=== PATIENT | female | born 1985 | race Caucasian/White ===

== ENCOUNTER 2016-11-30 22:12 | Emergency (ER) | payer OTHER ==
[2016-11-30] MEDS ORDERED: DICYCLOMINE 10 MG CAPSULE PO STA (22:27)
[2016-11-30] MEDS ORDERED: DICYCLOMINE 10 MG CAPSULE PO ONE (22:28)
== END 2016-11-30 23:49 | disposition home or self-care (01) ==
DX: K52.9 Noninfective gastroenteritis and colitis, unspecified (principal); F41.9 Anxiety disorder, unspecified
CPT/HCPCS: 36415; 80053; 81003; 81025; 83690; 84443; 84484; 85025; 93005; 93010; 99283; 99284; A9270

== ENCOUNTER 2016-12-06 09:10 | Emergency (ER) | payer OTHER ==
[2016-12-06] MEDS ORDERED: LACTATED RINGERS 1,000 ML IV STA (11:59)
[2016-12-06] MEDS ORDERED: DICYCLOMINE 10 MG CAPSULE PO STA (12:00)
[2016-12-06] MEDS ORDERED: METOCLOPRAMIDE 10 MG/2 ML VIAL IVP STA (12:00)
[2016-12-06] MEDS ORDERED: METOCLOPRAMIDE 10 MG/2 ML VIAL IVP ONE (12:19)
[2016-12-06] MEDS ORDERED: DICYCLOMINE 10 MG CAPSULE PO ONE (12:19)
== END 2016-12-06 13:27 | disposition home or self-care (01) ==
DX: K58.0 Irritable bowel syndrome with diarrhea (principal)
CPT/HCPCS: 36415; 80053; 83690; 96374; 99283; 99284; A9270

== ENCOUNTER 2016-12-17 01:56 | Emergency (ER) | payer OTHER ==
[2016-12-17] MEDS ORDERED: KETOROLAC 60 MG/2 ML VIAL IM STA (02:39)
[2016-12-17] MEDS ORDERED: oxyCODONE/ACET 5/325 Prepack 4 PO STA (02:39)
[2016-12-17] MEDS ORDERED: oxyCODONE/ACET 5/325 Prepack 4 PO ONE (02:41)
[2016-12-17] MEDS ORDERED: KETOROLAC 60 MG/2 ML VIAL ONE (02:41)
== END 2016-12-17 03:10 | disposition home or self-care (01) ==
DX: R10.13 Epigastric pain (principal); R10.11 Right upper quadrant pain; R11.0 Nausea; F17.200 Nicotine dependence, unspecified, uncomplicated

== ENCOUNTER 2017-04-14 22:12 | Emergency (ER) | payer OTHER ==
[2017-04-14 22:32] VITALS: BP 106/69
[2017-04-14] MEDS ORDERED: MAG HYDROX/AL HYDROX/SIMETH 30 ML UDC PO STA (22:54)
[2017-04-14] MEDS ORDERED: LIDOCAINE VISCOUS 2% 15 ML UDC MM STA (22:54)
[2017-04-14] MEDS ORDERED: LIDOCAINE VISCOUS 2% 15 ML UDC MM ONE (22:56)
[2017-04-14] MEDS ORDERED: MAG HYDROX/AL HYDROX/SIMETH 30 ML UDC ONE (22:56)
[2017-04-14] MEDS ORDERED: SUCRALFATE 1 GM/10 ML UDC PO STA (23:11)
[2017-04-14] MEDS ORDERED: FAMOTIDINE 20 MG TABLET PO STA (23:11)
[2017-04-14] MEDS ORDERED: FAMOTIDINE 20 MG TABLET ONE (23:14)
[2017-04-14] MEDS ORDERED: SUCRALFATE 1 GM/10 ML UDC ONE (23:14)
--- NOTE | 2017-04-14 23:14 | ED Physician Documentation ---
PD HPI ABD PAIN - Stated complaint Stated Complaint: ABD PX - Chief complaint Chief Complaint: Abd Pain - History obtained from History obtained from: Patient - History of Present Illness Timing - onset: How many days ago (3) Timing - duration: Days (3) Timing - details: Gradual onset, Still present Quality: Sharp, Pain Location: Epigastric Worsened by: Palpation Associated symptoms: No: Fever, Nausea, Vomiting, Diarrhea, Loss of appetite, Weight loss Similar symptoms before: Diagnosis (irritable bowel) Recently seen: Other (The patient has had some problem with her teeth and has been taking some ibuprofen.) - Additional information Additional information: 31-year-old female with history of irritable bowel syndrome has developed some epigastric pain over the past 3 days. She had worsening of this pain this afternoon and is now come to the emergency department for evaluation. She has had improvement in her irritable bowel symptoms since moving to [facility]. She has been to see the dentist and she has been on some ibuprofen which she states she does take with food. Review of Systems Constitutional: denies: Fever, Chills, Myalgias Ears: denies: Ear pain Nose: denies: Congestion Throat: reports: Dental pain / toothache. denies: Sore throat Cardiac: denies: Chest pain / pressure Respiratory: denies: Dyspnea, Cough GI: reports: Abdominal Pain. 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 : None HEENT: None Psych: None Musculoskeletal: None Derm: None Other Past Medical History: "stomach problems" pt had upper gi scope - Past Surgical History Past Surgical History: Yes /SUPERVISOR OF GUIDANCE AND TESTING: section, 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 - Present Medications Home Medications: Ambulatory Orders Medication Instructions Recorded Confirmed Hydrocodone/Acetaminophen [[place] 1 tab PO Q6HR PRN 11/30/16 11/30/16 5-325 Tablet] Dicyclomine [Bentyl] 20 mg PO QID PRN #20 capsule 12/06/16 Metoclopramide [Reglan] 10 mg PO Q6H PRN #20 tablet 12/06/16 Oxycodone HCl/Acetaminophen 1 each PO Q6H PRN #15 tablet 12/17/16 [Percocet 5-325 mg Tablet] Pantoprazole [Protonix] 40 mg PO DAILY #30 tablet 12/17/16 Sucralfate [Carafate] 1 gm PO ACHS #300 ml 04/14/17 - Allergies Allergies/Adverse Reactions: Allergies Allergy/AdvReac Type Severity Reaction Status Date / Time No Known Drug Allergies Allergy Verified 04/14/17 22:32 - Social History Does the pt smoke?: Yes Smoking Status: Current every day smoker Does the pt drink ETOH?: No Does the pt have substance abuse?: No - Immunizations Immunizations are current?: Yes - POLST Patient has POLST: No PD ED PE NORMAL - Vitals Vital signs reviewed: Yes (normal ) - General General: Alert and oriented X 3, No acute distress, Well developed/nourished, Other (pleasant 31 y/o female surrounded by 3 very active young children. She does not appear to be in pain ) - HEENT HEENT: Atraumatic, PERRL, EOMI, Moist mucous membranes - Neck Neck: Supple, no meningeal sign, No bony TTP - Cardiac Cardiac: RRR, No murmur - Respiratory Respiratory: No respiratory distress, Clear bilaterally - Abdomen Abdomen: Soft, Other (mild epigastric pain to palpation ) - Back Back: No CVA TTP, No spinal TTP - Derm Derm: Normal color, Warm and dry, No rash - Extremities Extremities: No deformity, No edema - Neuro Neuro: No motor deficit, No sensory deficit - Psych Psych: Normal mood, Normal affect Results - Vitals Vitals: Vital Signs - 24 hr 04/14/17 22:29 Temperature 36.2 C L Heart Rate 53 L Respiratory 17 Rate Blood Pressure 106/69 O2 Saturation 97 Oxygen O2 Source Room air PD MEDICAL DECISION MAKING - ED course Complexity details: reviewed old records, re-evaluated patient, considered differential, d/w patient ED course: 31-year-old female with epigastric pain sharp in nature has been taking some ibuprofen recently for a dental problem and she has improvement in her pain with the use of viscous lidocaine Mylanta. She has had prior workups of abdominal pain a number of times including scans and has had a diagnosis previously of irritable bowel. I suspect today the her pain is related to a gastritis related to the anti-inflammatory and here in the emergency department we have treated her with Carafate and Pepcid AC and I recommended she use an acid reducing medication for the next 10 days as well as 1 week of Carafate. Departure - Departure Disposition: 01 Home, Self Care Clinical Impression: Gastritis Qualifiers: Gastritis type: other gastritis Chronicity: acute Gastritis bleeding: without bleeding Qualified Code(s): K29.00 - Acute gastritis without bleeding Instructions: ED PUD Vs Gastritis Follow-Up: JO[facility] [Provider Group] Prescriptions: Sucralfate [Carafate] 1 gm PO ACHS #300 ml Comments: Today it appears you have this pain related to taking ibuprofen. Use an alternative pain medicine such as Tylenol. Take the Pepcid daily for the next week and take the Carafate for the next week as well.
== END 2017-04-14 23:34 | disposition home or self-care (01) ==
LOC: ED 22:12
DX: K29.00 Acute gastritis without bleeding (principal); F17.200 Nicotine dependence, unspecified, uncomplicated
CPT/HCPCS: 99283; A9270

== ENCOUNTER 2017-04-22 14:38 | Emergency (ER) | payer OTHER ==
[2017-04-22] MEDS ORDERED: ONDANSETRON ODT 4 MG TABLET TL STA (15:01)
[2017-04-22] MEDS ORDERED: KETOROLAC 60 MG/2 ML VIAL IM STA (15:01)
--- NOTE | 2017-04-22 15:11 | ED Physician Documentation ---
PD HPI HEADACHE - Stated complaint Stated Complaint: HEADACHE/BACK PX - Chief complaint Chief Complaint: General - History obtained from History obtained from: Patient - History of Present Illness Timing - onset: How many weeks ago (1) Timing - details: Still present Location: Front Associated symptoms: Nausea. No: Fever, Stiff neck, Vomiting, Weakness, Numbness Worsened by: Light, Noise, Moving Contributing factors: No: Trauma Similar symptoms before: No diagnosis (She reports history of similar headaches in the past, but never lasting this long.) Recently seen: Emergency Dept (She was seen here in the emergency department 1 week ago with abdominal pain, which was diagnosed as most likely gastritis associated with ibuprofen use.) - Additional information Additional information: The patient is a 31-year-old female who presents with frontal headache that has been waxing and waning for the past week. She reports associated nausea, without vomiting or fever. She denies visual disturbance. She has been taking amoxicillin for the past week for a dental infection, and is concerned about possibility of a dental infection going to her head. She reports history of similar headaches in the past, but never lasting this long. She has been using Excedrin without relief. Review of her medical record reveals that she was seen here 1 week ago with upper abdominal pain. It was diagnosed as likely due to gastritis caused by ibuprofen. Review of Systems Constitutional: denies: Fever Eyes: denies: Photophobia, Irritation Ears: denies: Ear pain, Tinnitus/ringing Nose: denies: Congestion Throat: reports: Dental pain / toothache (Improving since being on antibiotics.) . denies: Sore throat Cardiac: denies: Chest pain / pressure Respiratory: denies: Dyspnea, Cough GI: reports: Nausea. denies: Abdominal Pain, Vomiting : denies: Dysuria Skin: denies: Rash Musculoskeletal: denies: Neck pain, Back pain Neurologic: reports: Headache. 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: None : None HEENT: None Psych: None Musculoskeletal: None Derm: None - Past Surgical History Past Surgical History: Yes /AIRLINE PILOT/FIRST OFFICER: section, 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 - Present Medications Home Medications: Ambulatory Orders Medication Instructions Recorded Confirmed Hydrocodone/Acetaminophen [[place] 1 tab PO Q6HR PRN 11/30/16 11/30/16 5-325 Tablet] Dicyclomine [Bentyl] 20 mg PO QID PRN #20 capsule 12/06/16 Metoclopramide [Reglan] 10 mg PO Q6H PRN #20 tablet 12/06/16 Oxycodone HCl/Acetaminophen 1 each PO Q6H PRN #15 tablet 12/17/16 [Percocet 5-325 mg Tablet] Pantoprazole [Protonix] 40 mg PO DAILY #30 tablet 12/17/16 Sucralfate [Carafate] 1 gm PO ACHS #300 ml 04/14/17 Promethazine [Phenergan] 25 - 50 mg PO Q6H PRN #10 tab 04/22/17 Tramadol HCl [Ultram] 50 mg PO BID PRN #12 tablet 04/22/17 - Allergies Allergies/Adverse Reactions: Allergies Allergy/AdvReac Type Severity Reaction Status Date / Time No Known Drug Allergies Allergy Verified 04/22/17 14:44 - Social History Does the pt smoke?: Yes Smoking Status: Current every day smoker Does the pt drink ETOH?: No Does the pt have substance abuse?: No - Immunizations Immunizations are current?: Yes - POLST Patient has POLST: No PD ED PE NORMAL - Vitals Vital signs reviewed: Yes (Normal) - General General: Alert and oriented X 3, Well developed/nourished - HEENT HEENT: Atraumatic, PERRL, EOMI, Ears normal, Pharynx benign, Other (Fundi with sharp disc margins, without papilledema.) - Neck Neck: Supple, no meningeal sign, No adenopathy, No JVD - Cardiac Cardiac: RRR, No murmur - Respiratory Respiratory: No respiratory distress, Clear bilaterally - Abdomen Abdomen: Soft, Non tender, No organomegaly - Back Back: No CVA TTP - Derm Derm: No rash - Extremities Extremities: No edema, No calf tenderness / cord - Neuro Neuro: Alert and oriented X 3, No motor deficit, No sensory deficit Results - Vitals Vitals: Vital Signs - 24 hr 04/22/17 04/22/17 14:41 15:52 Temperature 36.7 C Heart Rate 68 53 L Respiratory 17 18 Rate Blood Pressure 100/68 116/68 O2 Saturation 99 100 Oxygen O2 Source Room air PD MEDICAL DECISION MAKING - ED course Complexity details: reviewed old records, re-evaluated patient, considered differential, d/w patient ED course: The patient's presentation is consistent with nonspecific headache, with no clinical evidence to suggest meningitis, temporal arteritis, intracranial hemorrhage, or pseudotumor cerebri. Examination of her dentition reveals a temporary filling on a right lower molar, but without clinical evidence to suggest abscess. Treatment in the emergency department included administration of ondansetron 4 mg orally and ketorolac 60 mg IM. Because the patient would be driving home, no sedating medication was considered appropriate at this time. She is being discharged with prescriptions for Ultram, 12 tablets, and Phenergan. I discussed with her the diagnosis, symptomatic treatment and outpatient follow-up , as well as potentially worrisome signs or symptoms that should prompt reevaluation in the emergency department. Departure - Departure Disposition: 01 Home, Self Care Clinical Impression: Headache Qualifiers: Headache type: unspecified Headache chronicity pattern: unspecified pattern Intractability: not intractable Qualified Code(s): R51 - Headache Condition: Stable Instructions: ED Cephalgia Unspecified Follow-Up: JOSE [facility] [Provider Group] Prescriptions: Promethazine [Phenergan] 25 - 50 mg PO Q6H PRN #10 tab PRN Reason: Nausea / Vomiting Tramadol HCl [Ultram] 50 mg PO BID PRN #12 tablet PRN Reason: Headache Comments: Drink plenty of fluids. You can use Ultram as prescribed if needed for headache. Use Phenergan as prescribed if needed for nausea. Follow-up with your primary physician within 1 week. Call to schedule appointment. Follow-up with your dentist this week as scheduled. Return to the emergency department if you develop increasing headache, persistent vomiting, or otherwise worsening symptoms. Discharge Date/Time: 04/22/17 15:53
[2017-04-22] MEDS ORDERED: KETOROLAC 60 MG/2 ML VIAL ONE (15:15)
[2017-04-22] MEDS ORDERED: ONDANSETRON ODT 4 MG TABLET ONE (15:15)
[2017-04-22 15:53] VITALS: BP 116/68
== END 2017-04-22 15:53 | disposition home or self-care (01) ==
LOC: ED 14:38
DX: R51 Headache (principal); K08.89 Other specified disorders of teeth and supporting structures; F17.200 Nicotine dependence, unspecified, uncomplicated
CPT/HCPCS: 96372; 99283; 99284; Q0162

== ENCOUNTER 2017-10-23 17:19 | Emergency (ER) | payer OTHER ==
[2017-10-23 17:30] VITALS: BP 141/61
[2017-10-23] MEDS ORDERED: HYDROmorphone 1 MG/ML SYRINGE IM STA (18:12)
[2017-10-23] MEDS ORDERED: ONDANSETRON ODT 4 MG TABLET TL STA (18:12)
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
== END 2017-10-23 18:22 | disposition home or self-care (01) ==
LOC: ED 17:19
DX: T23.161A Burn of first degree of back of right hand, initial encounter (principal); X08.8XXA Exposure to other specified smoke, fire and flames, initial encounter; R03.0 Elevated blood-pressure reading, without diagnosis of hypertension; K21.9 Gastro-esophageal reflux disease without esophagitis
CPT/HCPCS: 96372; 99281; 99283; J1170; Q0162

== ENCOUNTER 2017-11-23 09:59 | Emergency (ER) | payer OTHER ==
[2017-11-23 10:13] VITALS: BP 113/58
[2017-11-23 11:19] LABS: BILIRUBIN,URINE NEGATIVE (NEGATIVE); GLUCOSE, URINE (UA) NEGATIVE (NEGATIVE); KETONES,URINE (UA) NEGATIVE (NEGATIVE); LEUKOCYTE ESTERASE, URINE NEGATIVE (NEGATIVE); NITRITE,URINE NEGATIVE (NEGATIVE); OCCULT BLOOD,URINE NEGATIVE (NEGATIVE); PROTEIN,URINE NEGATIVE (NEGATIVE); UROBILINOGEN,URINE 0.2 (NORMAL) E.U./dL (NORMAL)
[2017-11-23 11:20] LABS: CLARITY,URINE CLEAR (CLEAR)
[2017-11-23 11:36] LABS: HCG UR QUAL NEGATIVE
== END 2017-11-23 11:39 | disposition home or self-care (01) ==
LOC: ED 09:59
DX: Z53.9 Procedure and treatment not carried out, unspecified reason (principal)
CPT/HCPCS: 81001; 81003; 81025; 99282

== ENCOUNTER 2018-05-14 00:22 | Emergency (ER) | payer OTHER ==
--- NOTE | 2018-05-14 00:58 | ED Physician Documentation ---
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, 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 - Present Medications Home Medications: Ambulatory Orders Medication Instructions Recorded Confirmed No Known Home Medications [No 05/14/18 05/14/18 Known Home Medications] - Allergies Allergies/Adverse Reactions: Allergies Allergy/AdvReac Type Severity Reaction Status Date / Time No Known Drug Allergies Allergy Verified 05/14/18 00:29 - Social History Does the pt smoke?: No Smoking Status: Never smoker Does the pt drink ETOH?: No Does the pt have substance abuse?: Yes - Immunizations Immunizations are current?: Yes - POLST Patient has POLST: No Results - Vitals Vitals: Vital Signs - 24 hr 05/14/18 00:25 Temperature 36.5 C Heart Rate 73 Respiratory 20 Rate Blood Pressure 125/76 O2 Saturation 100 Oxygen O2 Source Room air - Labs Labs: Laboratory Tests 05/14/18 00:54 Troponin I < 0.04 PD MEDICAL DECISION MAKING - Sepsis Event Vital Signs: Vital Signs - 24 hr 05/14/18 00:25 Temperature 36.5 C Heart Rate 73 Respiratory 20 Rate Blood Pressure 125/76 O2 Saturation 100 Oxygen O2 Source Room air Departure - Departure Disposition: 01 Home, Self Care Clinical Impression: Atypical chest pain Condition: Good Instructions: ED Chest Pain NonCardiac Follow-Up: primary,care provider [Other] - As Needed Comments: Your diagnostics today were within normal limits. there is no sign of acute cardiac or pulmonary disease including heart attach, blood clot, pneumonia or aortic dissection. Panic attack likely contributed to the pain and there might be a component of acid reflux involved. You should follow up with your doctor if these symptoms become more recurrent. You may return to the emergency department at any time for new, worsening or uncontrollable symptoms.
--- NOTE | 2018-05-14 01:41 | XRAY Report ---
Procedure Date: 05/14/2018 Accession Number: [id number] / [id number] Procedure: XR - Chest 2 View X-Ray CPT Code: 95494 FULL RESULT: EXAM: CHEST RADIOGRAPHY EXAM DATE: 05/14/2018 01:33 AM. CLINICAL HISTORY: Chest pain. COMPARISON: None. TECHNIQUE: 2 views. FINDINGS: Lungs/Pleura: No focal opacities evident. No pleural effusion. No pneumothorax. Normal volumes. Mediastinum: Heart and mediastinal contours are unremarkable. Other: None. IMPRESSION: Normal 2-view chest radiography. RADIA
--- NOTE | 2018-05-14 01:58 | ED Physician Documentation ---
PD HPI CHEST PAIN - Stated complaint Stated Complaint: CHEST PAIN,ANXIETY - Chief complaint Chief Complaint: Cardiac - History obtained from History obtained from: Patient - History of Present Illness Timing - onset: Today Timing - details: Abrupt onset, Now resolved Quality: Pressure Location: Substernal Associated symptoms: Shortness of air Similar symptoms before: No diagnosis Recently seen: Not recently seen - Additional information Additional information: Patient is a 32 year old female with a history of anxiety who is presenting to the emergency department for chest pain. 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 patient states that she then became anxious about it and the pain became worse so she came to the emergency department. Upon initial evaluation in the emergency department patient states that the pain had lessened since she felt better being here. Patient denies any history of early cardiac disease or blood clots. Review of Systems Ten Systems: 10 systems reviewed and negative Cardiac: reports: Chest pain / pressure Psychiatric: reports: Anxiety PD PAST MEDICAL HISTORY - Past Medical History Cardiovascular: None Respiratory: None Endocrine/Autoimmune: None GI: GERD, Other NET MENDER: None : None HEENT: None Psych: None Musculoskeletal: None Derm: None - Past Surgical History Past Surgical History: Yes /NET MENDER: section, 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 - Present Medications Home Medications: Ambulatory Orders Medication Instructions Recorded Confirmed No Known Home Medications [No 05/14/18 05/14/18 Known Home Medications] - Allergies Allergies/Adverse Reactions: Allergies Allergy/AdvReac Type Severity Reaction Status Date / Time No Known Drug Allergies Allergy Verified 05/14/18 00:29 - Social History Does the pt smoke?: No Smoking Status: Never smoker Does the pt drink ETOH?: No Does the pt have substance abuse?: Yes - Immunizations Immunizations are current?: Yes - POLST Patient has POLST: No PD ED PE NORMAL - Vitals Vital signs reviewed: Yes - General General: Alert and oriented X 3, No acute distress, Well developed/nourished - HEENT HEENT: Atraumatic - Neck Neck: No JVD - Cardiac Cardiac: RRR, No murmur - Respiratory Respiratory: No respiratory distress, Clear bilaterally - Abdomen Abdomen: Soft, Non tender, Non distended - Derm Derm: Normal color, Warm and dry, No rash - Extremities Extremities: No deformity - Neuro Neuro: Alert and oriented X 3, No motor deficit, Normal speech Eye Opening: Spontaneous Motor: Obeys Commands Verbal: Oriented GCS Score: 15 Results - Vitals Vitals: Vital Signs - 24 hr 05/14/18 00:25 Temperature 36.5 C Heart Rate 73 Respiratory 20 Rate Blood Pressure 125/76 O2 Saturation 100 Oxygen O2 Source Room air - EKG (time done) 0032 Rate: Rate (enter#) (72) Rhythm: NSR [place]: Normal Intervals: Normal [facility] QRS: Normal Ischemia: Normal ST segments Compare to prior EKG: Old EKG unavailable - Labs Labs: Laboratory Tests 05/14/18 00:54 Troponin I < 0.04 - Rads (name of study) chest x-ray Radiology: Final report received (normal) PD MEDICAL DECISION MAKING - ED course Complexity details: reviewed old records, reviewed results, re-evaluated patient , considered differential, d/w patient ED course: patient was seen and examined at bedside. patient was well appearing and in no distress. ekg was performed and was normal sinus. chest x-ray showed no acute abnormality. Patient's troponin was negative and patient was chest pain free. Patient had a HEART score of 1 and PERC 0. Patient required no further inpatient work up and was stable for discharge with outpatient follow up - Sepsis Event Vital Signs: Vital Signs - 24 hr 05/14/18 00:25 Temperature 36.5 C Heart Rate 73 Respiratory 20 Rate Blood Pressure 125/76 O2 Saturation 100 Oxygen O2 Source Room air Departure - Departure Disposition: 01 Home, Self Care Clinical Impression: Atypical chest pain Condition: Good Instructions: ED Chest Pain NonCardiac Follow-Up: primary,care provider [Other] - As Needed Comments: Your diagnostics today were within normal limits. there is no sign of acute cardiac or pulmonary disease including heart attach, blood clot, pneumonia or aortic dissection. Panic attack likely contributed to the pain and there might be a component of acid reflux involved. You should follow up with your doctor if these symptoms become more recurrent. You may return to the emergency department at any time for new, worsening or uncontrollable symptoms.
[2018-05-14 02:01] VITALS: BP 104/59
== END 2018-05-14 02:00 | disposition home or self-care (01) ==
LOC: ED 00:22
DX: R07.89 Other chest pain (principal)
CPT/HCPCS: 36415; 71046; 84484; 93005; 99283

== ENCOUNTER 2018-05-15 08:35 | Emergency (ER) | payer OTHER ==
--- NOTE | 2018-05-15 08:51 | ED Physician Documentation ---
PD HPI FEMALE - Stated complaint Stated Complaint: FEMALE - Chief complaint Chief Complaint: Abd Pain - History obtained from History obtained from: Patient - History of Present Illness Timing - onset: Last night Timing - duration: Hours (8-10) Timing - details: Abrupt onset (last night during intercourse.), Still present, Waxing and waning Review of Systems Constitutional: denies: Fever, Chills Nose: denies: Rhinorrhea / runny nose, Congestion Throat: denies: Sore throat Respiratory: denies: Cough GI: denies: Vomiting, Diarrhea : reports: Frequency, LMP (3 weeks ago (early April)). 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 - Present Medications Home Medications: Ambulatory Orders Medication Instructions Recorded Confirmed Sulfamethox/Trimeth 800/160 1 each PO BID #8 tablet 05/15/18 [Bactrim Ds 800/160] - Allergies Allergies/Adverse Reactions: Allergies Allergy/AdvReac Type Severity Reaction Status Date / Time No Known Drug Allergies Allergy Verified 05/15/18 08:47 - Social History Does the pt smoke?: No Smoking Status: Never smoker Does the pt drink ETOH?: No Does the pt have substance abuse?: Yes - Immunizations Immunizations are current?: Yes - POLST Patient has POLST: No PD ED PE NORMAL - Vitals Vital signs reviewed: Yes - General General: Alert and oriented X 3, No acute distress, Well developed/nourished - HEENT HEENT: Pharynx benign - Neck Neck: Supple, no meningeal sign, No adenopathy - Cardiac Cardiac: RRR, No murmur - Respiratory Respiratory: Clear bilaterally - Abdomen Abdomen: Normal bowel sounds, Soft, Non distended, No organomegaly, Other (mild tender suprapubic. Not tender RLQ area. ) - Female Female : Deferred - Rectal Rectal: Deferred - Back Back: No CVA TTP - Derm Derm: Normal color, Warm and dry, No rash Results - Vitals Vitals: Vital Signs - 24 hr 05/15/18 08:43 Temperature 36.0 C L Heart Rate 85 Respiratory 18 Rate Blood Pressure 118/70 O2 Saturation 100 Oxygen O2 Source Room air - Labs Labs: Laboratory Tests 05/15/18 09:25 Urine Color YELLOW Urine Clarity HAZY Urine pH 6.0 Ur Specific [place] 1.025 Urine Protein NEGATIVE Urine Glucose (UA) NEGATIVE Urine Ketones NEGATIVE Urine Occult Blood NEGATIVE Urine Nitrite NEGATIVE Urine Bilirubin NEGATIVE Urine Urobilinogen 0.2 (NORMAL) Ur Leukocyte Esterase TRACE H Urine RBC 0-5 Urine WBC 11-25 H Ur Squamous Epith Cells MOD Squamous H Urine Crystals 3-5 Calcium Oxalate Urine Bacteria Few Ur Microscopic Review INDICATED Urine Culture Comments NOT INDICATED Urine HCG, Qual NEGATIVE - Rads (name of study) pelvic U/S Radiology: Prelim report reviewed (ovaries normal. Small free fluid in pelvis.) PD MEDICAL DECISION MAKING - ED course Complexity details: reviewed results, considered differential, d/w patient - Sepsis Event Vital Signs: Vital Signs - 24 hr 05/15/18 08:43 Temperature 36.0 C L Heart Rate 85 Respiratory 18 Rate Blood Pressure 118/70 O2 Saturation 100 Oxygen O2 Source Room air Departure - Departure Disposition: 01 Home, Self Care Clinical Impression: Bacteriuria with pyuria, Pelvic pain, Ruptured cyst of ovary Condition: Stable Record reviewed to determine appropriate education?: Yes Instructions: ED Cyst Ovarian Prescriptions: Sulfamethox/Trimeth 800/160 [Bactrim Ds 800/160] 1 each PO BID #8 tablet Comments: Drink lots of fluids. Tylenol every 4-6 hours through the day as needed for pain. Your urine test shows some white cells and bacteria suggestive of possible bladder infection. We will treated with some antibiotics for several days for that. Your ultrasound appears normal except for a small amount of free fluid. Your symptoms combined with that would suggest there might have been a small cyst that ruptured causing the abrupt pain. Typically the discomfort will now dissipate over the next couple of days. Return if worsening symptoms develop otherwise.
[2018-05-15] MEDS ORDERED: ACETAMINOPHEN 500 MG TABLET PO STA (09:23)
[2018-05-15 09:36] LABS: BILIRUBIN,URINE NEGATIVE (NEGATIVE); GLUCOSE, URINE (UA) NEGATIVE (NEGATIVE); KETONES,URINE (UA) NEGATIVE (NEGATIVE); LEUKOCYTE ESTERASE, URINE TRACE (NEGATIVE); NITRITE,URINE NEGATIVE (NEGATIVE); OCCULT BLOOD,URINE NEGATIVE (NEGATIVE); PROTEIN,URINE NEGATIVE (NEGATIVE); UROBILINOGEN,URINE 0.2 (NORMAL) E.U./dL (NORMAL)
[2018-05-15 09:41] LABS: CLARITY,URINE HAZY (CLEAR)
[2018-05-15 09:44] LABS: HCG UR QUAL NEGATIVE
[2018-05-15 09:54] LABS: BACTERIA,URINE Few /HPF (None Seen); CRYSTALS,URINE 3-5 Calcium Oxalate /LPF; RBC,URINE 0-5 /HPF (0-5); SQUAMOUS EPITHELIAL CELL,UR MOD Squamous (<= Few)
[2018-05-15] MEDS ORDERED: SULFAMETH/TRIMETH DS 800/160 MG TABLET PO STA (10:27)
--- NOTE | 2018-05-15 10:29 | Ultrasound Report ---
Procedure Date: 05/15/2018 Accession Number: [id number] / [id number] Procedure: US - Pelvic w/Transvag+Doppler Ltd CPT Code: FULL RESULT: EXAM: PELVIC ULTRASOUND EXAM DATE: 05/15/2018 10:10 AM. CLINICAL HISTORY: Pelvic pain onset last night with intercourse. COMPARISON: None. TECHNIQUE: Realtime transabdominal pelvic scan performed to identify the uterus and adnexa and as an overview of other pelvic structures, followed by transvaginal scan to provide greater detail of the uterus and adnexa, with static image documentation. FINDINGS: Uterus: 9.2 x 4 x 5.1 cm, volume 98 cc. Anteverted position. Normal overall size and echotexture. Masses: None. Endometrium: 7 mm. Normal. Cervix: Unremarkable. Right Ovary: 2.6 x 2.3 x 1.9 cm, volume 5.9 cc. Normal echotexture and blood flow. Left Ovary: 2.3 x 1.9 x 2.1 cm, volume 4.8 cc. Normal echotexture and blood flow. Free Fluid: Small Other: None. IMPRESSION: Normal pelvic ultrasound. RADIA
[2018-05-15 10:35] VITALS: BP 118/72
--- NOTE | 2018-05-17 10:49 | Ultrasound Report ---
Procedure Date: 05/15/2018 Accession Number: [id number] / [id number] Procedure: US - Pelvic w/Transvag+Doppler Ltd CPT Code: FULL RESULT: EXAM: PELVIC ULTRASOUND EXAM DATE: 05/15/2018 10:10 AM. CLINICAL HISTORY: Pelvic pain onset last night with intercourse. COMPARISON: None. TECHNIQUE: Realtime transabdominal pelvic scan performed to identify the uterus and adnexa and as an overview of other pelvic structures, followed by transvaginal scan to provide greater detail of the uterus and adnexa, with static image documentation. FINDINGS: Uterus: 9.2 x 4 x 5.1 cm, volume 98 cc. Anteverted position. Normal overall size and echotexture. Masses: None. Endometrium: 7 mm. Normal. Cervix: Unremarkable. Right Ovary: 2.6 x 2.3 x 1.9 cm, volume 5.9 cc. Normal echotexture and blood flow. Left Ovary: 2.3 x 1.9 x 2.1 cm, volume 4.8 cc. Normal echotexture and blood flow. Free Fluid: Small Other: None. IMPRESSION: Normal pelvic ultrasound. RADIA
== END 2018-05-15 10:34 | disposition home or self-care (01) ==
LOC: ED 08:35
DX: R82.71 Bacteriuria (principal); N39.0 Urinary tract infection, site not specified; N83.209 Unspecified ovarian cyst, unspecified side
CPT/HCPCS: 76830; 76856; 81001; 81025; 93976; 99283; A9270; 81003; 87086

== ENCOUNTER 2018-06-08 22:52 | Emergency (ER) | payer OTHER ==
--- NOTE | 2018-06-08 23:00 | ED Physician Documentation ---
PD HPI FEMALE - Stated complaint Stated Complaint: SIDE PX - History obtained from History obtained from: Patient - History of Present Illness Timing - onset: Today Timing - details: Abrupt onset, Now resolved Associated symptoms: Abdominal pain. No: Fever Similar symptoms before: Has not had sx before Recently seen: Not recently seen - Additional information Additional information: Patient is a 32 year old female with no significant past medical history but multiple ED visits who is presenting to the emergency department today for abdominal pain. patient reports that yesterday she drank a red bull at work then had one episode of vomiting. tonight patient had an episode of loose stools after drinking a coffee and eating taco [place]. patient had some right upper quadrant pain that has now resolved. Review of Systems Ten Systems: 10 systems reviewed and negative Constitutional: denies: Fever, Chills GI: reports: Abdominal Pain, Nausea, Diarrhea. 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: section, 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 - Present Medications Home Medications: Ambulatory Orders Medication Instructions Recorded Confirmed Sulfamethox/Trimeth 800/160 1 each PO BID #8 tablet 05/15/18 [Bactrim Ds 800/160] - Allergies Allergies/Adverse Reactions: Allergies Allergy/AdvReac Type Severity Reaction Status Date / Time No Known Drug Allergies Allergy Verified 06/08/18 23:03 - Social History Does the pt smoke?: No Smoking Status: Never smoker Does the pt drink ETOH?: No Does the pt have substance abuse?: Yes - Immunizations Immunizations are current?: Yes - POLST Patient has POLST: No PD ED PE NORMAL - Vitals Vital signs reviewed: Yes - General General: Alert and oriented X 3, No acute distress, Well developed/nourished - HEENT HEENT: Atraumatic, PERRL - Cardiac Cardiac: RRR - Respiratory Respiratory: No respiratory distress - Abdomen Abdomen: Soft, Non tender, Non distended - Derm Derm: Normal color, Warm and dry, No rash - Extremities Extremities: No deformity - Neuro Neuro: Alert and oriented X 3, No motor deficit, Normal speech Eye Opening: Spontaneous Results - Vitals Vitals: Vital Signs - 24 hr 06/08/18 23:01 Temperature 36.7 C Heart Rate 84 Respiratory 16 Rate Blood Pressure 109/72 O2 Saturation 98 Oxygen O2 Source Room air - Labs Labs: Laboratory Tests 06/08/18 23:11 Urine Color YELLOW Urine Clarity CLEAR Urine pH 6.0 Ur Specific [place] <=1.005 Urine Protein NEGATIVE Urine Glucose (UA) NEGATIVE Urine Ketones NEGATIVE Urine Occult Blood NEGATIVE Urine Nitrite NEGATIVE Urine Bilirubin NEGATIVE Urine Urobilinogen 0.2 (NORMAL) Ur Leukocyte Esterase NEGATIVE Ur Microscopic Review NOT INDICATED Urine Culture Comments NOT INDICATED Urine HCG, Qual NEGATIVE PD MEDICAL DECISION MAKING - ED course Complexity details: reviewed old records, reviewed results, re-evaluated patient, considered differential, d/w patient ED course: Patient was seen and examined at bedside. Patient was well appearing and had normal vital signs. Urine was collected. Patient refused blood work at this time. Patient was treated with maalox and viscous lidocaine. patient's pain resolved and patient left without her paperwork. - Sepsis Event Vital Signs: Vital Signs - 24 hr 06/08/18 23:01 Temperature 36.7 C Heart Rate 84 Respiratory 16 Rate Blood Pressure 109/72 O2 Saturation 98 Oxygen O2 Source Room air Departure - Departure Disposition: 01 Home, Self Care Clinical Impression: Abdominal pain Condition: Good
[2018-06-08 23:03] VITALS: BP 109/72
[2018-06-08 23:21] LABS: BILIRUBIN,URINE NEGATIVE (NEGATIVE); GLUCOSE, URINE (UA) NEGATIVE (NEGATIVE); KETONES,URINE (UA) NEGATIVE (NEGATIVE); LEUKOCYTE ESTERASE, URINE NEGATIVE (NEGATIVE); NITRITE,URINE NEGATIVE (NEGATIVE); OCCULT BLOOD,URINE NEGATIVE (NEGATIVE); PROTEIN,URINE NEGATIVE (NEGATIVE); UROBILINOGEN,URINE 0.2 (NORMAL) E.U./dL (NORMAL)
[2018-06-08 23:22] LABS: CLARITY,URINE CLEAR (CLEAR)
[2018-06-08 23:23] LABS: HCG UR QUAL NEGATIVE
[2018-06-08] MEDS ORDERED: ONDANSETRON ODT 4 MG TABLET TL STA (23:29)
[2018-06-08] MEDS ORDERED: MAG HYDROX/AL HYDROX/SIMETH 30 ML UDC PO STA (23:29)
[2018-06-08] MEDS ORDERED: LIDOCAINE VISCOUS 2% 15 ML UDC MM STA (23:29)
== END 2018-06-08 23:55 | disposition home or self-care (01) ==
LOC: ED 22:52
DX: R10.9 Unspecified abdominal pain (principal)
CPT/HCPCS: 81003; 81025; 99283; A9270; Q0162; 81001; 87086

== ENCOUNTER 2018-07-05 13:13 | Emergency (ER) | payer OTHER ==
[2018-07-05 13:26] VITALS: BP 108/73
[2018-07-05 14:16] LABS: BILIRUBIN,URINE NEGATIVE (NEGATIVE); GLUCOSE, URINE (UA) NEGATIVE (NEGATIVE); KETONES,URINE (UA) NEGATIVE (NEGATIVE); LEUKOCYTE ESTERASE, URINE NEGATIVE (NEGATIVE); NITRITE,URINE POSITIVE (NEGATIVE); OCCULT BLOOD,URINE NEGATIVE (NEGATIVE); PROTEIN,URINE NEGATIVE (NEGATIVE); UROBILINOGEN,URINE 0.2 (NORMAL) E.U./dL (NORMAL)
[2018-07-05 14:18] LABS: CLARITY,URINE CLOUDY (CLEAR)
[2018-07-05 14:19] LABS: HCG UR QUAL NEGATIVE
[2018-07-05 14:31] LABS: BACTERIA,URINE Moderate /HPF (None Seen); RBC,URINE 0-5 /HPF (0-5); SQUAMOUS EPITHELIAL CELL,UR FEW Squamous (<= Few)
== END 2018-07-05 15:17 | disposition left against medical advice (07) ==
LOC: ED 13:13
DX: R10.9 Unspecified abdominal pain (principal); R11.0 Nausea; Z53.21 Procedure and treatment not carried out due to patient leaving prior to being seen by health care provider
CPT/HCPCS: 81001; 81003; 81025; 87077; 87086; 87181; 96374; 99283

== ENCOUNTER 2018-07-05 22:47 | Emergency (ER) | payer OTHER ==
--- NOTE | 2018-07-05 22:56 | ED Physician Documentation ---
PD HPI ABD PAIN - Stated complaint Stated Complaint: ABD PAIN - History obtained from History obtained from: Patient - History of Present Illness Timing - onset: How many days ago (2-3) Timing - duration: Days Timing - details: Gradual onset, Intermittant, Waxing and waning Pain level now: 3 Quality: Pain Location: All over / everywhere Improved by: Other (nothing) Worsened by: Other (no exacerbating factors) Associated symptoms: Nausea. No: Fever, Vomiting, Diarrhea, Constipation Recently seen: Not recently seen Review of Systems Constitutional: denies: Fever, Chills, Sweats Cardiac: reports: Reviewed and negative Respiratory: reports: Reviewed and negative GI: reports: Abdominal Pain. 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 - Present Medications Home Medications: Ambulatory Orders Medication Instructions Recorded Confirmed Sulfamethox/Trimeth 800/160 1 each PO BID #8 tablet 05/15/18 [Bactrim Ds 800/160] - Allergies Allergies/Adverse Reactions: Allergies Allergy/AdvReac Type Severity Reaction Status Date / Time No Known Drug Allergies Allergy Verified 07/05/18 22:57 - Social History Does the pt smoke?: No Smoking Status: Never smoker Does the pt drink ETOH?: No Does the pt have substance abuse?: Yes - Immunizations Immunizations are current?: Yes - POLST Patient has POLST: No PD ED PE NORMAL - Vitals Vital signs reviewed: Yes - General General: Alert and oriented X 3, No acute distress, Well developed/nourished - Cardiac Cardiac: RRR, No murmur - Respiratory Respiratory: No respiratory distress, Clear bilaterally - Abdomen Abdomen: Soft, Non distended, Other (tenderness to palpation that is greatest in RLQ (but also in RUQ, LLQ)) - Back Back: No CVA TTP - Derm Derm: Normal color Results - Vitals Vitals: Oxygen O2 Source Room air - Rads (name of study) CT A/P Radiology: Prelim report reviewed, See rad report PD MEDICAL DECISION MAKING - ED course Complexity details: reviewed results, re-evaluated patient, considered differential, d/w patient Departure - Departure Disposition: 01 Home, Self Care Clinical Impression: Hypokalemia Abdominal pain Qualifiers: Abdominal location: generalized Qualified Code(s): R10.84 - Generalized abdominal pain Condition: Good Instructions: ED Abdominal Pain Unkn Cause, ED Potassium Deficiency Follow-Up: JOSE Hammer [Provider Group] Discharge Date/Time: 07/06/18 01:38
[2018-07-05] MEDS ORDERED: KETOROLAC 60 MG/2 ML VIAL IVP STA (23:16)
[2018-07-05] MEDS ORDERED: ONDANSETRON 4 MG/2 ML VIAL IVP STA (23:16)
[2018-07-05 23:18] LABS: BILIRUBIN,URINE NEGATIVE (NEGATIVE); GLUCOSE, URINE (UA) NEGATIVE (NEGATIVE); KETONES,URINE (UA) NEGATIVE (NEGATIVE); LEUKOCYTE ESTERASE, URINE NEGATIVE (NEGATIVE); NITRITE,URINE NEGATIVE (NEGATIVE); OCCULT BLOOD,URINE NEGATIVE (NEGATIVE); PROTEIN,URINE NEGATIVE (NEGATIVE); UROBILINOGEN,URINE 0.2 (NORMAL) E.U./dL (NORMAL)
[2018-07-05 23:20] LABS: CLARITY,URINE CLEAR (CLEAR)
[2018-07-05 23:21] LABS: HCG UR QUAL NEGATIVE
[2018-07-05 23:25] LABS: BASOPHILS % (AUTO) 0.5 %; EOSINOPHILS # (AUTO) 0.1 10^3/uL (0.0-0.7); EOSINOPHILS % (AUTO) 1.5 %; LYMPHOCYTES # (AUTO) 2.5 10^3/uL (1.5-3.5); LYMPHOCYTES % (AUTO) 26.9 %; MEAN CORPUSCULAR HEMOGLOBIN 30.1 pg (27.0-31.0); MEAN CORPUSCULAR HGB CONC 34.7 g/dL (32.0-36.0); MEAN CORPUSCULAR VOLUME 86.6 fL (81.0-99.0); MEAN PLATELET VOLUME 8.1 fL (7.9-10.8); MONOCYTES # (AUTO) 0.9 10^3/uL (0.0-1.0); MONOCYTES % (AUTO) 9.1 %; NEUTROPHILS # (AUTO) 5.9 10^3/uL (1.5-6.6); PLT - PLATELET COUNT 204 10^3/uL (130-450); RED CELL DISTRIBUTION WIDTH 13.1 % (12.0-15.0); WHITE BLOOD COUNT 9.4 x10^3/uL (4.8-10.8)
[2018-07-05] MEDS ORDERED: IOPAMIDOL-300 100 ML VIAL ONE (23:27)
[2018-07-05 23:38] LABS: ALBUMIN 3.8 g/dL (3.2-5.5); ALBUMIN/GLOBULIN RATIO 1.1 (1.0-2.2); ALKALINE PHOSPHATASE 43 IU/L (42-121); ALT ALANINE AMINOTRANSFERASE 10 IU/L (10-60); AST ASPARTATE AMINOTRANSFERASE 18 IU/L (10-42); BILIRUBIN,TOTAL < 0.2 mg/dL (0.2-1.0); BUN - BLOOD UREA NITROGEN 13 mg/dL (6-20); CALCIUM 9.1 mg/dL (8.5-10.3); CARBON DIOXIDE - CO2 27 mmol/L (21-32); CHLORIDE 104 mmol/L (101-111); CREATININE 0.6 mg/dL (0.4-1.0); GFR - MDRD 116 (>89); GLUCOSE 105 mg/dL (70-100); LIPASE 21 U/L (22-51); SODIUM 138 mmol/L (135-145); TOTAL PROTEIN 7.2 g/dL (6.7-8.2)
[2018-07-05] MEDS ORDERED: IOPAMIDOL-300 100 ML VIAL IVP ONE (23:45)
--- NOTE | 2018-07-06 00:12 | CT Report ---
Reason: RLQ pain Procedure Date: 07/05/2018 Accession Number: [id number] / [id number] Procedure: CT - Abdomen/Pelvis W/ CPT Code: FULL RESULT: EXAM: CT ABDOMEN AND PELVIS EXAM DATE: 07/05/2018 11:54 PM. CLINICAL HISTORY: Right lower quadrant pain. COMPARISONS: None. TECHNIQUE: Routine helical CT imaging was performed through the abdomen and pelvis. IV contrast: ISOVUE 300 100mL. Enteric contrast: No. Reconstructions: Coronal and sagittal. In accordance with CT protocol optimization, one or more of the following dose reduction techniques were utilized for this exam: automated exposure control, adjustment of mA and/or KV based on patient size, or use of iterative reconstructive technique. FINDINGS: Lung Bases: Unremarkable. Liver: Normal. No masses. Gallbladder/Bile Ducts: Unremarkable. Spleen: Normal. Pancreas: Normal. Adrenal Glands: Normal. Kidneys: Normal. No masses or hydronephrosis. Peritoneal Cavity/Bowel: Normal. No free fluid, free air or adenopathy. No masses or acute inflammatory process. The appendix is not clearly visualized, however, there are no inflammatory changes in the region of the cecum. There is no stranding of the fat in the right lower quadrant. There are no fluid collections in the right lower quadrant. Pelvic Organs: Normal. The bladder and visualized pelvic organs are within normal limits. Vasculature: No aneurysms or other significant abnormality. Bones: No significant abnormality. Other: None. IMPRESSION: 1. Nonvisualization of the appendix, however, there are no indirect signs to suggest underlying inflammation/appendicitis. Nevertheless, if clinical suspicion is high consider repeat CT scan in 12 hours after copious amounts of oral contrast. RADIA
[2018-07-06 00:45] VITALS: BP 96/55
[2018-07-06] MEDS ORDERED: POTASSIUM BICARB 25 MEQ TABLET PO STA (01:29)
== END 2018-07-06 01:38 | disposition home or self-care (01) ==
LOC: ED 22:47
DX: E87.6 Hypokalemia (principal); R10.84 Generalized abdominal pain; R11.0 Nausea
CPT/HCPCS: 36415; 74177; 80053; 81001; 81003; 81025; 83690; 85025; 87077; 87086; 87181; 87591; 96374; 99283; A9270; Q9967

== ENCOUNTER 2018-07-10 14:41 | Outpatient (CLI) | payer OTHER | END 2018-07-10 14:42 | disposition critical access hospital (66) | LOC: EMS 14:41 | PROVIDERS: ATTEND Surgery | DX: R10.10 Upper abdominal pain, unspecified (principal); R53.1 Weakness | CPT/HCPCS: A0425; A0429 ==

== ENCOUNTER 2018-07-10 15:03 | Emergency (ER) | payer OTHER ==
[2018-07-10 15:23] LABS: BASOPHILS % (AUTO) 0.5 %; BILIRUBIN,URINE NEGATIVE (NEGATIVE); EOSINOPHILS # (AUTO) 0.1 10^3/uL (0.0-0.7); EOSINOPHILS % (AUTO) 1.5 %; GLUCOSE, URINE (UA) NEGATIVE (NEGATIVE); HGB - HEMOGLOBIN 13.2 g/dL (12.0-16.0); KETONES,URINE (UA) NEGATIVE (NEGATIVE); LEUKOCYTE ESTERASE, URINE NEGATIVE (NEGATIVE); LYMPHOCYTES # (AUTO) 1.7 10^3/uL (1.5-3.5); LYMPHOCYTES % (AUTO) 24.2 %; MEAN CORPUSCULAR HEMOGLOBIN 29.8 pg (27.0-31.0); MEAN CORPUSCULAR VOLUME 87.6 fL (81.0-99.0); MEAN PLATELET VOLUME 8.4 fL (7.9-10.8); MONOCYTES # (AUTO) 0.6 10^3/uL (0.0-1.0); MONOCYTES % (AUTO) 9.4 %; NEUTROPHILS # (AUTO) 4.4 10^3/uL (1.5-6.6); NEUTROPHILS % (AUTO) 64.4 %; NITRITE,URINE NEGATIVE (NEGATIVE); OCCULT BLOOD,URINE NEGATIVE (NEGATIVE); PLT - PLATELET COUNT 209 10^3/uL (130-450); PROTEIN,URINE NEGATIVE (NEGATIVE); RED BLOOD COUNT 4.44 10^6/uL (4.20-5.40); UROBILINOGEN,URINE 0.2 (NORMAL) E.U./dL (NORMAL); WHITE BLOOD COUNT 6.9 x10^3/uL (4.8-10.8)
[2018-07-10 15:26] LABS: CLARITY,URINE CLOUDY (CLEAR)
[2018-07-10 15:32] LABS: BACTERIA,URINE Rare /HPF (None Seen); RBC,URINE None Seen /HPF (0-5); SQUAMOUS EPITHELIAL CELL,UR MANY Squamous (<= Few)
[2018-07-10 15:35] LABS: ALBUMIN 4.4 g/dL (3.2-5.5); ALBUMIN/GLOBULIN RATIO 1.1 (1.0-2.2); BILIRUBIN,TOTAL 0.2 mg/dL (0.2-1.0); CALCIUM 9.3 mg/dL (8.5-10.3); CREATININE 0.7 mg/dL (0.4-1.0); TOTAL PROTEIN 8.4 g/dL (6.7-8.2)
[2018-07-10] MEDS ORDERED: KETOROLAC 60 MG/2 ML VIAL IVP STA (16:12)
[2018-07-10] MEDS ORDERED: FAMOTIDINE 20 MG in SODIUM CHLORIDE 0.9% 50 ML IV ONE (16:12)
[2018-07-10] MEDS ORDERED: ONDANSETRON 4 MG/2 ML VIAL IVP STA (16:12)
[2018-07-10] MEDS ORDERED: SODIUM CHLORIDE 0.9% 1,000 ML IV ONE (16:12)
[2018-07-10] MEDS ORDERED: LORazepam 2 MG/ML VIAL IVP STA (16:16)
[2018-07-10] MEDS ORDERED: LIDOCAINE VISCOUS 2% 15 ML UDC MM STA (16:38)
[2018-07-10] MEDS ORDERED: MAG HYDROX/AL HYDROX/SIMETH 30 ML UDC PO STA (16:38)
--- NOTE | 2018-07-10 16:52 | XRAY Report ---
Reason: soa Procedure Date: 07/10/2018 Accession Number: [id number] / [id number] Procedure: XR - Chest 2 View X-Ray CPT Code: 65663 FULL RESULT: EXAM: CHEST RADIOGRAPHY EXAM DATE: 07/10/2018 04:25 PM. CLINICAL HISTORY: Soa. COMPARISON: 07/05/2018, 05/14/2018. TECHNIQUE: 2 views. FINDINGS: Lungs/Pleura: No focal consolidation. No pleural effusion. No pneumothorax. Normal volumes. Mediastinum: Heart and mediastinal contours are normal. Other: None. IMPRESSION: No acute cardiopulmonary abnormality. RADIA
[2018-07-10] MEDS ORDERED: AMOXICILLIN 250 MG CAPSULE PO STA (17:37)
--- NOTE | 2018-07-10 17:40 | ED Physician Documentation ---
PD HPI ABD PAIN - Stated complaint Stated Complaint: ABD PX - Chief complaint Chief Complaint: Abd Pain - History obtained from History obtained from: Patient - Additional information Additional information: 32-year-old female with a history of gastritis with a recent flareup who was started on medications by her primary return to the emergency department with ongoing epigastric discomfort. The patient also reports pain in her tooth in the right lower jaw. The patient denies fevers, chills. The patient does report shortness of breath and anxiety today which brought her into the emergency department. The patient reported pain in her back with the shortness of breath. The patient denies triggering factors. Presently the patient feels improved. Symptoms are described as moderate. 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 : None HEENT: None Psych: None Musculoskeletal: None Derm: None - Past Surgical History 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 Surgical History: 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, 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 - Present Medications Home Medications: Ambulatory Orders Medication Instructions Recorded Confirmed Dicyclomine [Bentyl] 10 mg PO Q4HR 07/10/18 07/10/18 Ondansetron Odt [Zofran Odt] 4 mg SL PRN PRN 07/10/18 07/10/18 RX: Amoxicillin 875 mg PO BID #20 tablet 07/10/18 RX: Omeprazole 10 mg PO BID 07/10/18 07/10/18 - Allergies Allergies/Adverse Reactions: Allergies Allergy/AdvReac Type Severity Reaction Status Date / Time No Known Drug Allergies Allergy Verified 07/05/18 22:57 - Social History Does the pt smoke?: No Smoking Status: Never smoker Does the pt drink ETOH?: No Does the pt have substance abuse?: Yes - Immunizations Immunizations are current?: Yes - POLST Patient has POLST: No PD ED PE NORMAL - General General: Alert and oriented X 3, No acute distress - HEENT HEENT: Atraumatic, PERRL, EOMI, Ears normal, Pharynx benign. No: Dentition benign (The patient has multiple dental caries, on the right lower jaw there appears to be an infected dental caries. No abscess, no trismus or facial swelling or cellulitis.) - Neck Neck: Supple, no meningeal sign - Cardiac Cardiac: RRR, Strong equal pulses - Respiratory Respiratory: No respiratory distress, Clear bilaterally - Abdomen Abdomen: Soft, Non distended. No: Non tender - Back Back: No CVA TTP - Derm Derm: Normal color - Extremities Extremities: No deformity - Neuro Neuro: Alert and oriented X 3, Normal speech - Psych Psych: Normal affect Results - Vitals Vitals: Vital Signs - 24 hr 07/10/18 07/10/18 15:09 17:48 Temperature 36.5 C Heart Rate 67 66 Respiratory 16 16 Rate Blood Pressure 113/62 114/60 O2 Saturation 100 100 Oxygen O2 Source Room air - Labs Labs: Laboratory Tests 07/10/18 07/10/18 07/10/18 15:18 15:18 15:18 WBC 6.9 RBC 4.44 Hgb 13.2 Hct 38.9 MCV 87.6 MCH 29.8 MCHC 34.0 RDW 13.0 Plt Count 209 MPV 8.4 Neut # (Auto) 4.4 Lymph # (Auto) 1.7 [place] # (Auto) 0.6 Eos # (Auto) 0.1 Baso # (Auto) 0.0 Absolute Nucleated RBC 0.00 Nucleated RBC % 0.0 D-Dimer Sodium 136 Potassium 3.6 Chloride 100 L Carbon Dioxide 27 Anion Gap 9.0 BUN 18 Creatinine 0.7 Estimated GFR (MDRD) 97 Glucose 108 H Calcium 9.3 Total Bilirubin 0.2 AST 20 ALT 11 Alkaline Phosphatase 47 Troponin I Total Protein 8.4 H Albumin 4.4 Globulin 4.0 Albumin/Globulin Ratio 1.1 Lipase 28 HCG, Quant < 0.60 Urine Color Urine Clarity Urine pH Ur Specific [place] Urine Protein Urine Glucose (UA) Urine Ketones Urine Occult Blood Urine Nitrite Urine Bilirubin Urine Urobilinogen Ur Leukocyte Esterase Urine RBC Urine WBC Ur Squamous Epith Cells Urine Bacteria Ur Microscopic Review Urine Culture Comments 07/10/18 07/10/18 07/10/18 15:18 16:20 16:20 WBC RBC Hgb Hct MCV MCH MCHC RDW Plt Count MPV Neut # (Auto) Lymph # (Auto) [place] # (Auto) Eos # (Auto) Baso # (Auto) Absolute Nucleated RBC Nucleated RBC % D-Dimer < 200.0 L Sodium Potassium Chloride Carbon Dioxide Anion Gap BUN Creatinine Estimated GFR (MDRD) Glucose Calcium Total Bilirubin AST ALT Alkaline Phosphatase Troponin I < 0.04 Total Protein Albumin Globulin Albumin/Globulin Ratio Lipase HCG, Quant Urine Color LT. YELLOW Urine Clarity CLOUDY Urine pH 7.0 Ur Specific [place] 1.010 Urine Protein NEGATIVE Urine Glucose (UA) NEGATIVE Urine Ketones NEGATIVE Urine Occult Blood NEGATIVE Urine Nitrite NEGATIVE Urine Bilirubin NEGATIVE Urine Urobilinogen 0.2 (NORMAL) Ur Leukocyte Esterase NEGATIVE Urine RBC None Seen Urine WBC 0-3 Ur Squamous Epith Cells MANY Squamous H Urine Bacteria Rare Ur Microscopic Review INDICATED Urine Culture Comments NOT INDICATED - Rads (name of study) CXR Radiology: Final report received PD MEDICAL DECISION MAKING - ED course ED course: The patient's workup does not reveal any significant abnormality at this point that would Necessitate admission to the hospital or further workup in the emergency department. The patient feels much improved on reexamination and her symptoms are consistent with a gastritis. Presently I do not think A CT scan is warranted and would not provide much extra information at this point. The patient appears appropriate for discharge and further workup as an outpatient. I discussed with her the findings and plan and the patient understands and agrees. Departure - Departure Disposition: 01 Home, Self Care Clinical Impression: Infected dental caries Abdominal pain Qualifiers: Abdominal location: epigastric Qualified Code(s): R10.13 - Epigastric pain Condition: Good Instructions: Abdominal Pain, ED Gastritis Prescriptions: RX: Amoxicillin 875 mg PO BID #20 tablet Comments: Please follow-up with primary care for ongoing management. Please return to the emergency department for any worsening or any concerns Discharge Date/Time: 07/10/18 17:48
[2018-07-10 17:49] VITALS: BP 114/60
== END 2018-07-10 17:48 | disposition home or self-care (01) ==
LOC: EDUNIT# → ED 15:03
DX: R10.13 Epigastric pain (principal); K04.7 Periapical abscess without sinus; K02.9 Dental caries, unspecified; K21.9 Gastro-esophageal reflux disease without esophagitis
CPT/HCPCS: 36415; 71046; 80053; 81001; 83690; 84484; 84702; 85025; 85379; 93005; 96365; 96375; 99283; A9270; J2060; J7040; 81003; 87086

== ENCOUNTER 2018-07-13 07:47 | Emergency (ER) | payer OTHER ==
[2018-07-13] MEDS ORDERED: MAG HYDROX/AL HYDROX/SIMETH 30 ML UDC PO STA (08:58)
[2018-07-13] MEDS ORDERED: LIDOCAINE VISCOUS 2% 15 ML UDC MM STA (08:58)
--- NOTE | 2018-07-13 09:06 | ED Physician Documentation ---
PD HPI NVD - Stated complaint Stated Complaint: BLOOD IN STOOL - Chief complaint Chief Complaint: Abd Pain - History obtained from History obtained from: Patient - History of Present Illness Timing - onset: Today Timing - details: Still present Associated symptoms: Abdominal pain. No: Fever, Dysuria Similar symptoms before: Diagnosis (gastritis) Recently seen: Clinic, Emergency Dept - Additonal information Additional information: The patient is a 32-year-old female with history of gastroesophageal reflux disease and gastritis, who presents with watery diarrhea x3 this morning. She is concerned because she thinks there might be blood in the diarrhea. She has associated upper abdominal pain and nausea. She denies vomiting or fever. Review of her medical records reveals that she was seen here 3 days ago with exacerbation of gastritis. She is being treated with Zofran, omeprazole, and was prescribed amoxicillin and Bentyl. She has also been taking probiotic yogurt. She was seen here 8 days ago with abdominal pain, and CT scan of the abdomen and pelvis at that time was unremarkable. Her primary provider is arranging for her to undergo upper endoscopy. Review of Systems Constitutional: denies: Fever Nose: denies: Congestion Cardiac: denies: Chest pain / pressure Respiratory: denies: Dyspnea, Cough GI: reports: Abdominal Pain, Nausea, Diarrhea, Bloody / black stool. 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 : None HEENT: None Psych: None Musculoskeletal: None Derm: None - Past Surgical History Past Surgical History: Yes /WORKERS COMPENSATION ANALYST: section, 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 - Present Medications Home Medications: Ambulatory Orders Medication Instructions Recorded Confirmed Amoxicillin 875 mg PO BID #20 tablet 07/10/18 Dicyclomine [Bentyl] 10 mg PO Q4HR 07/10/18 07/10/18 Omeprazole 10 mg PO BID 07/10/18 07/10/18 Ondansetron Odt [Zofran Odt] 4 mg SL PRN PRN 07/10/18 07/10/18 Loperamide [Imodium] 2 mg PO BID PRN #10 capsule 07/13/18 - Allergies Allergies/Adverse Reactions: Allergies Allergy/AdvReac Type Severity Reaction Status Date / Time No Known Drug Allergies Allergy Verified 07/05/18 22:57 - Social History Does the pt smoke?: No Smoking Status: Never smoker Does the pt drink ETOH?: No Does the pt have substance abuse?: Yes - Immunizations Immunizations are current?: Yes - POLST Patient has POLST: No PD ED PE NORMAL - Vitals Vital signs reviewed: Yes (normal) - General General: Alert and oriented X 3, Well developed/nourished - HEENT HEENT: Atraumatic, Moist mucous membranes, Pharynx benign - Neck Neck: Supple, no meningeal sign, No adenopathy - Cardiac Cardiac: RRR, No murmur - Respiratory Respiratory: No respiratory distress, Clear bilaterally - Abdomen Abdomen: Soft, No organomegaly, Other (Mild tenderness to palpation in epistric region.) - Back Back: No CVA TTP - Derm Derm: No rash - Extremities Extremities: No edema, No calf tenderness / cord - Neuro Neuro: Alert and oriented X 3, No motor deficit, Normal speech PD ED PE EXPANDED - Rectal Rectal: Heme Occult Neg - QC+ Results - Vitals Vitals: Vital Signs - 24 hr 07/13/18 10:15 Heart Rate 74 Respiratory 18 Rate Blood Pressure 115/78 O2 Saturation 100 Oxygen O2 Source Room air - Labs Labs: Laboratory Tests 07/13/18 09:18 WBC 6.3 RBC 4.40 Hgb 13.1 Hct 38.4 MCV 87.2 MCH 29.9 MCHC 34.2 RDW 12.7 Plt Count 205 MPV 8.8 Neut # (Auto) 4.4 Lymph # (Auto) 1.2 L [place] # (Auto) 0.6 Eos # (Auto) 0.1 Baso # (Auto) 0.1 Absolute Nucleated RBC 0.00 Nucleated RBC % 0.0 PD MEDICAL DECISION MAKING - ED course Complexity details: reviewed old records, reviewed results, re-evaluated patient, considered differential, d/w patient ED course: The patient's presentation is most consistent with gastroenteritis, in addition to exacerbation of gastroesophageal reflux. There is no clinical evidence to suggest dehydration, acute surgical abdominal process, or bloody diarrhea. Stool is heme-negative, and CBC is unremarkable, with a white count of 6.3. Treatment in the emergency department included administration of GI cocktail, which relieved her epigastric discomfort. She is being discharged with prescription for Imodium. I discussed with her the expected course of illness, symptomatic treatment and outpatient follow-up, as well as potentially worrisome signs or symptoms that should prompt reevaluation in the emergency department. Departure - Departure Disposition: 01 Home, Self Care Clinical Impression: Gastroenteritis Diarrhea Qualifiers: Diarrhea type: unspecified type Qualified Code(s): R19.7 - Diarrhea, unspecified Condition: Stable Instructions: ED Gastroenteritis Viral Follow-Up: JOSE Hammer [Provider Group] Prescriptions: Loperamide [Imodium] 2 mg PO BID PRN #10 capsule PRN Reason: Diarrhea Comments: Drink plenty of fluids. You can use Imodium as prescribed if needed for recurrent diarrhea. Follow-up with your primary physician within 1 week. Call to schedule appointment. Return to the emergency department if you develop increasing abdominal pain, dehydration, or otherwise worsening symptoms. Discharge Date/Time: 07/13/18 11:17
[2018-07-13 09:23] LABS: BASOPHILS # (AUTO) 0.1 10^3/uL (0.0-0.1); BASOPHILS % (AUTO) 0.8 %; EOSINOPHILS # (AUTO) 0.1 10^3/uL (0.0-0.7); EOSINOPHILS % (AUTO) 0.9 %; HGB - HEMOGLOBIN 13.1 g/dL (12.0-16.0); LYMPHOCYTES # (AUTO) 1.2 10^3/uL (1.5-3.5); LYMPHOCYTES % (AUTO) 18.9 %; MEAN CORPUSCULAR HEMOGLOBIN 29.9 pg (27.0-31.0); MEAN CORPUSCULAR HGB CONC 34.2 g/dL (32.0-36.0); MEAN CORPUSCULAR VOLUME 87.2 fL (81.0-99.0); MEAN PLATELET VOLUME 8.8 fL (7.9-10.8); MONOCYTES # (AUTO) 0.6 10^3/uL (0.0-1.0); MONOCYTES % (AUTO) 9.6 %; NEUTROPHILS # (AUTO) 4.4 10^3/uL (1.5-6.6); NEUTROPHILS % (AUTO) 69.8 %; PLT - PLATELET COUNT 205 10^3/uL (130-450); RED CELL DISTRIBUTION WIDTH 12.7 % (12.0-15.0); WHITE BLOOD COUNT 6.3 x10^3/uL (4.8-10.8)
[2018-07-13 10:17] VITALS: BP 115/78
== END 2018-07-13 11:17 | disposition home or self-care (01) ==
LOC: ED 07:47
DX: K52.9 Noninfective gastroenteritis and colitis, unspecified (principal); R19.7 Diarrhea, unspecified
CPT/HCPCS: 36415; 85025; 99283; A9270

== ENCOUNTER 2018-08-10 12:03 | Emergency (ER) | payer OTHER ==
[2018-08-10 12:39] LABS: BILIRUBIN,URINE NEGATIVE (NEGATIVE); GLUCOSE, URINE (UA) NEGATIVE (NEGATIVE); KETONES,URINE (UA) NEGATIVE (NEGATIVE); LEUKOCYTE ESTERASE, URINE NEGATIVE (NEGATIVE); NITRITE,URINE NEGATIVE (NEGATIVE); OCCULT BLOOD,URINE NEGATIVE (NEGATIVE); PROTEIN,URINE NEGATIVE (NEGATIVE); UROBILINOGEN,URINE 0.2 (NORMAL) E.U./dL (NORMAL)
[2018-08-10 12:41] LABS: CLARITY,URINE CLEAR (CLEAR); HCG UR QUAL NEGATIVE
[2018-08-10 14:02] LABS: BASOPHILS % (AUTO) 0.3 %; EOSINOPHILS # (AUTO) 0.7 10^3/uL (0.0-0.7); EOSINOPHILS % (AUTO) 8.6 %; HGB - HEMOGLOBIN 13.1 g/dL (12.0-16.0); LYMPHOCYTES # (AUTO) 1.6 10^3/uL (1.5-3.5); LYMPHOCYTES % (AUTO) 19.3 %; MEAN CORPUSCULAR HEMOGLOBIN 29.8 pg (27.0-31.0); MEAN CORPUSCULAR HGB CONC 34.3 g/dL (32.0-36.0); MEAN CORPUSCULAR VOLUME 86.7 fL (81.0-99.0); MEAN PLATELET VOLUME 8.1 fL (7.9-10.8); MONOCYTES # (AUTO) 0.5 10^3/uL (0.0-1.0); MONOCYTES % (AUTO) 6.1 %; NEUTROPHILS # (AUTO) 5.6 10^3/uL (1.5-6.6); NEUTROPHILS % (AUTO) 65.7 %; PLT - PLATELET COUNT 222 10^3/uL (130-450); RED BLOOD COUNT 4.41 10^6/uL (4.20-5.40); RED CELL DISTRIBUTION WIDTH 13.1 % (12.0-15.0); WHITE BLOOD COUNT 8.5 x10^3/uL (4.8-10.8)
[2018-08-10 14:19] LABS: ALBUMIN 4.3 g/dL (3.2-5.5); ALBUMIN/GLOBULIN RATIO 1.3 (1.0-2.2); BILIRUBIN,TOTAL 0.5 mg/dL (0.2-1.0); CALCIUM 9.1 mg/dL (8.5-10.3); CREATININE 0.6 mg/dL (0.4-1.0); TOTAL PROTEIN 7.5 g/dL (6.7-8.2)
[2018-08-10] MEDS ORDERED: FAMOTIDINE 20 MG/50 ML 50 ML IV ONE (14:25)
[2018-08-10] MEDS ORDERED: ONDANSETRON 4 MG/2 ML VIAL IVP STA (14:25)
[2018-08-10] MEDS ORDERED: SODIUM CHLORIDE 0.9% 1,000 ML IV ONE (14:25)
--- NOTE | 2018-08-10 14:30 | ED Physician Documentation ---
PD HPI ABD PAIN - Stated complaint Stated Complaint: AB PX - Chief complaint Chief Complaint: Abd Pain - History obtained from History obtained from: Patient - History of Present Illness Timing - onset: How many months ago Timing - duration: Weeks (1) Timing - details: Gradual onset, Still present, Intermittant, Waxing and waning Pain level max: 8 Pain level now: 6 Quality: Cramping, Sharp Location: All over / everywhere, Epigastric Radiation: Other (no) Improved by: Other (nothing) Worsened by: Eating Associated symptoms: Nausea, Vomiting, Diarrhea. No: Fever, Hematemesis, Constipation, Melena, Hematochezia, Dysuria, Chest pain, Dizzy, Near syncope / syncope, Loss of appetite, Weight loss, Vaginal bleeding Similar symptoms before: No: Diagnosis Recently seen: Not recently seen - Additional information Additional information: 32-year-old female with history of 3 C-sections here with complaint of epigastric abdominal pain for many months and had gotten worse the past week associated with nausea, vomiting, diarrhea.Patient stated a year ago she had an EGD and found H. pylori. Had seen her primary doctor and was prescribed omeprazole and Zofran which helped for a week.Patient states has a GI appointment next Monday or4 days from now.Patient denies any trauma, travel, sick contacts or recent illness. Review of Systems Ten Systems: 10 systems reviewed and negative Constitutional: denies: Fever, Chills, Myalgias Nose: denies: Rhinorrhea / runny nose, Congestion Throat: denies: Sore throat Cardiac: denies: Chest pain / pressure Respiratory: denies: Dyspnea, Cough GI: reports: Abdominal Pain, Nausea, Vomiting, Diarrhea. denies: Abdominal Swelling, Constipation, Hematemesis, Bloody / black stool : denies: Dysuria, Frequency, Discharge Musculoskeletal: denies: Back pain Neurologic: denies: Generalized weakness PD PAST MEDICAL HISTORY - Past Medical History Past Medical History: Yes Cardiovascular: None Respiratory: None Endocrine/Autoimmune: None GI: GERD, Other MEDICAL SAFETY DIRECTOR: None : None HEENT: None Psych: None Musculoskeletal: None Derm: None Other Past Medical History: H. Pylori - Past Surgical History Past Surgical History: Yes /MEDICAL SAFETY DIRECTOR: section, 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 - Present Medications Home Medications: Ambulatory Orders Medication Instructions Recorded Confirmed Amoxicillin 875 mg PO BID #20 tablet 07/10/18 Dicyclomine [Bentyl] 10 mg PO Q4HR 07/10/18 07/10/18 Omeprazole 10 mg PO BID 07/10/18 07/10/18 Ondansetron Odt [Zofran Odt] 4 mg SL PRN PRN 07/10/18 07/10/18 Loperamide [Imodium] 2 mg PO BID PRN #10 capsule 07/13/18 Omeprazole 40 mg PO DAILY #30 capsule. 08/10/18 Ondansetron Odt [Zofran] 4 mg TL Q6H PRN #16 tablet 08/10/18 Sucralfate [Carafate] 1 gm PO BID #60 tablet 08/10/18 - Allergies Allergies/Adverse Reactions: Allergies Allergy/AdvReac Type Severity Reaction Status Date / Time No Known Drug Allergies Allergy Verified 08/10/18 12:20 - Social History Does the pt smoke?: No Smoking Status: Current every day smoker Does the pt drink ETOH?: Yes Does the pt have substance abuse?: Yes Substance Use and Type: Marijuana - Immunizations Immunizations are current?: No Immunizations: TDAP >10years/unknown - POLST Patient has POLST: No PD ED PE NORMAL - Vitals Vital signs reviewed: Yes - General General: Alert and oriented X 3, No acute distress, Well developed/nourished - HEENT HEENT: EOMI, Pharynx benign, Other (Right) - Neck Neck: Supple, no meningeal sign - Cardiac Cardiac: RRR, No murmur - Respiratory Respiratory: No respiratory distress, Clear bilaterally - Abdomen Abdomen: Normal bowel sounds, Soft, Non distended, Other (Mild epigastric tenderness, no rebound, no rigidity nor guarding.) - Back Back: No CVA TTP, No spinal TTP - Derm Derm: Normal color, Warm and dry - Extremities Extremities: No deformity - Neuro Neuro: Alert and oriented X 3 - Psych Psych: Normal mood, Normal affect Results - Vitals Vitals: Vital Signs - 24 hr 08/10/18 12:18 Temperature 36.1 C L Heart Rate 83 Respiratory 14 Rate Blood Pressure 111/69 O2 Saturation 98 Oxygen O2 Source Room air - Labs Labs: Laboratory Tests 08/10/18 08/10/18 08/10/18 12:25 13:58 13:58 WBC 8.5 RBC 4.41 Hgb 13.1 Hct 38.2 MCV 86.7 MCH 29.8 MCHC 34.3 RDW 13.1 Plt Count 222 MPV 8.1 Neut # (Auto) 5.6 Lymph # (Auto) 1.6 [place] # (Auto) 0.5 Eos # (Auto) 0.7 Baso # (Auto) 0.0 Absolute Nucleated RBC 0.00 Nucleated RBC % 0.0 Sodium 138 Potassium 3.6 Chloride 102 Carbon Dioxide 26 Anion Gap 10.0 BUN 12 Creatinine 0.6 Estimated GFR (MDRD) 116 Glucose 103 H Calcium 9.1 Total Bilirubin 0.5 AST 21 ALT 14 Alkaline Phosphatase 43 Total Protein 7.5 Albumin 4.3 Globulin 3.2 Albumin/Globulin Ratio 1.3 Lipase 25 Urine Color YELLOW Urine Clarity CLEAR Urine pH 6.0 Ur Specific [place] 1.010 Urine Protein NEGATIVE Urine Glucose (UA) NEGATIVE Urine Ketones NEGATIVE Urine Occult Blood NEGATIVE Urine Nitrite NEGATIVE Urine Bilirubin NEGATIVE Urine Urobilinogen 0.2 (NORMAL) Ur Leukocyte Esterase NEGATIVE Ur Microscopic Review NOT INDICATED Urine Culture Comments NOT INDICATED Urine HCG, Qual NEGATIVE PD MEDICAL DECISION MAKING - ED course Complexity details: reviewed results, re-evaluated patient ([id number] requesting for extra strength Tylenol for her epigastric pain. No nausea, vomiting or diarrhea in the emergency room. Patient informed of test results and labs. Patient states she is out of her Zofran omeprazole. Will discharge patient on omeprazole, Carafate and Zofran. Instructed to keep her GI appointment on Monday.), considered differential (Gastritis, PUD, pancreatitis, obstruction, gastroenteritis, dehydration), d/w patient Departure - Departure Disposition: 01 Home, Self Care Clinical Impression: Gastroenteritis Abdominal pain Qualifiers: Abdominal location: epigastric Qualified Code(s): R10.13 - Epigastric pain Condition: Stable Instructions: ED Abdominal Pain Unkn Cause, ED Gastroenteritis Non Infec Prescriptions: Omeprazole 40 mg PO DAILY #30 capsule. Ondansetron Odt [Zofran] 4 mg TL Q6H PRN #16 tablet PRN Reason: Nausea / Vomiting Sucralfate [Carafate] 1 gm PO BID #60 tablet Comments: Take the prescribed medications. Keep your GI appointment on Monday. If worse return to the emergency room.
[2018-08-10] MEDS ORDERED: IOPAMIDOL-300 100 ML VIAL ONE (14:52)
[2018-08-10] MEDS ORDERED: IOPAMIDOL-300 100 ML VIAL IVP ONE (15:11)
--- NOTE | 2018-08-10 15:40 | CT Report ---
Reason: pain, n/v/d Procedure Date: 08/10/2018 Accession Number: [id number] / [id number] Procedure: CT - Abdomen/Pelvis W/ CPT Code: FULL RESULT: EXAM: CT ABDOMEN AND PELVIS EXAM DATE: 08/10/2018 03:05 PM. CLINICAL HISTORY: Pain, nausea, vomiting, and diarrhea. COMPARISONS: ABDOMEN/PELVIS W/ 07/05/2018 11:45 PM. TECHNIQUE: Routine helical CT imaging was performed through the abdomen and pelvis. IV contrast: ISOVUE 300 100mL. Enteric contrast: No. Reconstructions: Coronal and sagittal. In accordance with CT protocol optimization, one or more of the following dose reduction techniques were utilized for this exam: automated exposure control, adjustment of mA and/or KV based on patient size, or use of iterative reconstructive technique. FINDINGS: Lung Bases: Unremarkable. Liver: Normal. No masses. Gallbladder/Bile Ducts: Unremarkable. Spleen: Normal. Pancreas: Normal. Adrenal Glands: Normal. Kidneys: Bilateral nonobstructing renal calculi measuring 5 mm or less. Peritoneal Cavity/Bowel: Fluid-filled descending colon. No free fluid, free air or adenopathy. No masses or acute inflammatory process. The appendix is not definitely visualized; however, there are no focal inflammatory changes. Pelvic Organs: Normal. The bladder and visualized pelvic organs are within normal limits. Vasculature: No aneurysms or other significant abnormality. Bones: No significant abnormality. Other: None. IMPRESSION: Fluid in the descending colon in keeping with history of diarrhea. Otherwise, no acute abdominal or pelvic abnormality. RADIA
[2018-08-10] MEDS ORDERED: ACETAMINOPHEN 325 MG TABLET PO STA (15:59)
[2018-08-10 16:58] VITALS: BP 114/80
== END 2018-08-10 16:30 | disposition home or self-care (01) ==
LOC: ED 12:03
DX: K52.9 Noninfective gastroenteritis and colitis, unspecified (principal); F17.200 Nicotine dependence, unspecified, uncomplicated
CPT/HCPCS: 36415; 74177; 80053; 81003; 81025; 83690; 85025; 96365; 96375; 99283; A9270; Q9967; 81001; 87086

== ENCOUNTER 2018-11-01 10:08 | Emergency (ER) | payer OTHER ==
--- NOTE | 2018-11-01 13:12 | ED Physician Documentation ---
History of Present Illness - Stated complaint Stated Complaint: WEAKNESS/HEART FLUTTER - Chief complaint Chief Complaint: Abd Pain - History obtained from History obtained from: Patient, Family - History of Present Illness Timing: How many days ago (2) - Additonal information Additional information: 32-year-old female patient previously well has developed a feeling of lightheadedness and dizziness over the past 2 days. She has vague symptomatology she has had a bit of a cough she has had a bit of diarrhea yesterday and she has been drinking copious amounts of fluid to compensate. She has not had fever sore throat or shortness of breath. Review of Systems Constitutional: reports: Fatigue, Sweats. 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 denies: Ear pain Nose: denies: Rhinorrhea / runny nose, Congestion Throat: denies: Sore throat Cardiac: denies: Chest pain / pressure, Palpitations Respiratory: reports: Cough. denies: Dyspnea GI: reports: Nausea, Diarrhea. 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 08/10/18 Ondansetron Odt [Zofran] 4 mg TL Q6H PRN #16 tablet 08/10/18 Sucralfate [Carafate] 1 gm PO BID #60 tablet 08/10/18 - Allergies Allergies/Adverse Reactions: Allergies Allergy/AdvReac Type Severity Reaction Status Date / Time No Known Drug Allergies Allergy Verified 11/01/18 10:47 - Social History Does the pt smoke?: No Smoking Status: Current every day smoker Does the pt drink ETOH?: Yes Does the pt have substance abuse?: Yes - Immunizations Immunizations are current?: No Immunizations: TDAP >10years/unknown - POLST Patient has POLST: No PD ED PE NORMAL - Vitals Vital signs reviewed: Yes (normal ) - General General: Alert and oriented X 3, No acute distress, Well developed/nourished - HEENT HEENT: Atraumatic, PERRL, EOMI, Ears normal, Moist mucous membranes, Pharynx benign - Neck Neck: Supple, no meningeal sign, No bony TTP - Cardiac Cardiac: RRR, No murmur - Respiratory Respiratory: No respiratory distress, Clear bilaterally - Abdomen Abdomen: Soft, Non tender - Back Back: No CVA TTP, No spinal TTP - Derm Derm: Normal color, Warm and dry, No rash - Extremities Extremities: No deformity, No edema - Neuro Neuro: Alert and oriented X 3, imagery intelligence 2-12 intact, No motor deficit, No sensory deficit, Normal speech Eye Opening: Spontaneous Motor: Obeys Commands Verbal: Oriented GCS Score: 15 - Psych Psych: Normal mood, Normal affect Results - Vitals Vitals: Vital Signs - 24 hr 11/01/18 11/01/18 10:44 13:21 Temperature 36.7 C 36 C L Heart Rate 67 59 L Respiratory 18 17 Rate Blood Pressure 119/77 115/78 O2 Saturation 100 98 Oxygen O2 Source Room air - Labs Labs: Laboratory Tests 11/01/18 11/01/18 11/01/18 10:50 13:15 14:04 WBC 7.2 RBC 4.68 Hgb 13.8 Hct 41.0 MCV 87.7 MCH 29.5 MCHC 33.6 RDW 13.4 Plt Count 222 MPV 8.1 Neut # (Auto) 5.0 Lymph # (Auto) 1.5 [place] # (Auto) 0.6 Eos # (Auto) 0.1 Baso # (Auto) 0.0 Absolute Nucleated RBC 0.00 Nucleated RBC % 0.0 Sodium Potassium Chloride Carbon Dioxide Anion Gap BUN Creatinine Estimated GFR (MDRD) Glucose Calcium Total Bilirubin AST ALT Alkaline Phosphatase Troponin I Total Protein Albumin Globulin Albumin/Globulin Ratio Lipase Urine Color LIGHT YELLOW Urine Clarity CLEAR Urine pH 6.0 Ur Specific [place] <=1.005 Urine Protein NEGATIVE Urine Glucose (UA) NEGATIVE Urine Ketones NEGATIVE Urine Occult Blood NEGATIVE Urine Nitrite NEGATIVE Urine Bilirubin NEGATIVE Urine Urobilinogen 0.2 (NORMAL) Ur Leukocyte Esterase NEGATIVE Ur Microscopic Review NOT INDICATED Urine Culture Comments NOT INDICATED Urine HCG, Qual NEGATIVE Influenza A (Rapid) Negative Influenza B (Rapid) Negative 11/01/18 11/01/18 14:04 14:08 WBC RBC Hgb Hct MCV MCH MCHC RDW Plt Count MPV Neut # (Auto) Lymph # (Auto) [place] # (Auto) Eos # (Auto) Baso # (Auto) Absolute Nucleated RBC Nucleated RBC % Sodium 137 Potassium 4.0 Chloride 102 Carbon Dioxide 27 Anion Gap 8.0 BUN 12 Creatinine 0.5 Estimated GFR (MDRD) 143 Glucose 118 H Calcium 9.3 Total Bilirubin 0.4 AST 24 ALT 15 Alkaline Phosphatase 51 Troponin I < 0.04 Total Protein 8.5 H Albumin 4.5 Globulin 4.0 Albumin/Globulin Ratio 1.1 Lipase 26 Urine Color Urine Clarity Urine pH Ur Specific [place] Urine Protein Urine Glucose (UA) Urine Ketones Urine Occult Blood Urine Nitrite Urine Bilirubin Urine Urobilinogen Ur Leukocyte Esterase Ur Microscopic Review Urine Culture Comments Urine HCG, Qual Influenza A (Rapid) Influenza B (Rapid) Procedures - IVC sono (time) 1305 Bedside IVC sono: IVC measures (cm) (1.87), IVC collapsed c insp (cm) (0.8), Euvolemia PD MEDICAL DECISION MAKING - ED course Complexity details: reviewed old records, reviewed results, re-evaluated patient, considered differential, d/w patient ED course: 32-year-old female with a history of gastritis has developed symptoms of dizziness and lightheadedness palpitations and sporadic pains. She is concerned that there is something wrong with her and she is come to the emergency department after seeing her regular doctor about some nausea that she is had. She has been taking some Zofran. Here in the emerge department she is not dehydrated on interrogation the inferior vena cava she has a normal physical examination and her influenza a and B is negative as well as a urinalysis. She is not . She requests blood work be done to complete a workup as she is concerned there is something gravely wrong. I suspect the patient may have some issue with anxiety and I am not able to convince her without further workup. Departure - Departure Disposition: 01 Home, Self Care Clinical Impression: Anxiety Condition: Stable Instructions: ED Stress React, ED Panic Attack Follow-Up: Karri Miramontes ARNP [Primary Care Provider] - Discharge Date/Time: 11/01/18 13:44
[2018-11-01 13:23] VITALS: BP 115/78
[2018-11-01 13:28] LABS: BILIRUBIN,URINE NEGATIVE (NEGATIVE); GLUCOSE, URINE (UA) NEGATIVE (NEGATIVE); KETONES,URINE (UA) NEGATIVE (NEGATIVE); LEUKOCYTE ESTERASE, URINE NEGATIVE (NEGATIVE); NITRITE,URINE NEGATIVE (NEGATIVE); OCCULT BLOOD,URINE NEGATIVE (NEGATIVE); PROTEIN,URINE NEGATIVE (NEGATIVE); UROBILINOGEN,URINE 0.2 (NORMAL) E.U./dL (NORMAL)
[2018-11-01 13:31] LABS: CLARITY,URINE CLEAR (CLEAR); HCG UR QUAL NEGATIVE
[2018-11-01 14:08] LABS: BASOPHILS % (AUTO) 0.7 %; EOSINOPHILS # (AUTO) 0.1 10^3/uL (0.0-0.7); EOSINOPHILS % (AUTO) 1.5 %; HGB - HEMOGLOBIN 13.8 g/dL (12.0-16.0); LYMPHOCYTES # (AUTO) 1.5 10^3/uL (1.5-3.5); LYMPHOCYTES % (AUTO) 20.7 %; MEAN CORPUSCULAR HEMOGLOBIN 29.5 pg (27.0-31.0); MEAN CORPUSCULAR HGB CONC 33.6 g/dL (32.0-36.0); MEAN CORPUSCULAR VOLUME 87.7 fL (81.0-99.0); MEAN PLATELET VOLUME 8.1 fL (7.9-10.8); MONOCYTES # (AUTO) 0.6 10^3/uL (0.0-1.0); MONOCYTES % (AUTO) 7.7 %; NEUTROPHILS % (AUTO) 69.4 %; PLT - PLATELET COUNT 222 10^3/uL (130-450); RED BLOOD COUNT 4.68 10^6/uL (4.20-5.40); RED CELL DISTRIBUTION WIDTH 13.4 % (12.0-15.0); WHITE BLOOD COUNT 7.2 x10^3/uL (4.8-10.8)
[2018-11-01 14:23] LABS: ALBUMIN 4.5 g/dL (3.2-5.5); ALBUMIN/GLOBULIN RATIO 1.1 (1.0-2.2); BILIRUBIN,TOTAL 0.4 mg/dL (0.2-1.0); CALCIUM 9.3 mg/dL (8.5-10.3); CREATININE 0.5 mg/dL (0.4-1.0); TOTAL PROTEIN 8.5 g/dL (6.7-8.2)
== END 2018-11-01 14:37 | disposition home or self-care (01) ==
LOC: ED 10:08
DX: F41.9 Anxiety disorder, unspecified (principal); F17.200 Nicotine dependence, unspecified, uncomplicated
CPT/HCPCS: 36415; 80053; 81001; 81003; 81025; 83690; 84484; 85025; 87086; 87275; 87276; 99283

== ENCOUNTER 2018-11-19 15:43 | Emergency (ER) | payer OTHER ==
--- NOTE | 2018-11-19 17:32 | ED Physician Documentation ---
History of Present Illness - Stated complaint Stated Complaint: SOA/COUGH - Chief complaint Chief Complaint: General - History obtained from History obtained from: Patient - History of Present Illness Timing: Other (Mild cough for 2 days, she developed bilateral lower anterior rib pain that is worse with deep breathing coughing, but she did not think the cough was significant enough to cause that. She denies pedal edema or calf pain. She is status post remote tubal ligation.) Review of Systems Constitutional: denies: Fever, Chills Ears: reports: Ear pain (R) Nose: denies: Rhinorrhea / runny nose Cardiac: reports: Chest pain / pressure. denies: Palpitations Respiratory: reports: Cough. 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, 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 - Present Medications Home Medications: Ambulatory Orders Medication Instructions Recorded Confirmed No Known Home Medications 11/19/18 11/19/18 - Allergies Allergies/Adverse Reactions: Allergies Allergy/AdvReac Type Severity Reaction Status Date / Time No Known Drug Allergies Allergy Verified 11/19/18 15:57 - Social History Does the pt smoke?: No Smoking Status: Current every day smoker Does the pt drink ETOH?: Yes Does the pt have substance abuse?: Yes - Immunizations Immunizations are current?: No Immunizations: TDAP >10years/unknown - POLST Patient has POLST: No PD ED PE NORMAL - Vitals Vital signs reviewed: Yes - General General: Alert and oriented X 3, No acute distress - HEENT HEENT: Ears normal, Pharynx benign - Neck Neck: Supple, no meningeal sign, No bony TTP - Cardiac Cardiac: RRR, No murmur - Respiratory Respiratory: No respiratory distress, Clear bilaterally - Abdomen Abdomen: Non tender - Extremities Extremities: No edema, No calf tenderness / cord - Neuro Neuro: Alert and oriented X 3, Normal speech Results - Vitals Vitals: Vital Signs - 24 hr 11/19/18 15:55 Temperature 36.8 C Heart Rate 102 H Respiratory 16 Rate Blood Pressure 123/68 O2 Saturation 97 Oxygen O2 Source Room air - EKG (time done) 1806 Rate: Rate (enter#) (70) Rhythm: NSR [place]: Normal Intervals: Normal ID QRS: Normal Ischemia: Normal ST segments Computer interpretation: Agree with computer - Labs Labs: Laboratory Tests 11/19/18 11/19/18 16:45 16:45 D-Dimer 204.3 Sodium 137 Potassium 3.4 L Chloride 101 Carbon Dioxide 29 Anion Gap 7.0 BUN 13 Creatinine 0.7 Estimated GFR (MDRD) 97 Glucose 103 H Calcium 9.2 - Rads (name of study) 2v chest Radiology: EMP read contemporaneously (normal) PD MEDICAL DECISION MAKING - ED course ED course: This is a 32-year-old woman with cough and lower chest pain that seems musculoskeletal, but she thought the cough seemed pretty mild caused chest wall strain or similar pain so workup was done including d-dimer given mild tachycardia but she said that was actually chronic. Negative diagnostics ruling out ACS, pneumonia, pneumothorax, and PE. Departure - Departure Disposition: 01 Home, Self Care Clinical Impression: Cough Chest pain Qualifiers: Chest pain type: intercostal pain Qualified Code(s): R07.82 - Intercostal pain Condition: Good Record reviewed to determine appropriate education?: Yes Instructions: ED Strain Chest Wall Comments: Call your doctor to arrange a follow-up appointment, make the next available appointment. In the interim, return anytime if worse or if new symptoms develop.
[2018-11-19 18:01] LABS: CALCIUM 9.2 mg/dL (8.5-10.3); CREATININE 0.7 mg/dL (0.4-1.0)
--- NOTE | 2018-11-19 18:48 | XRAY Report ---
Reason: cough cp Procedure Date: 11/19/2018 Accession Number: [id number] / [id number] Procedure: XR - Chest 2 View X-Ray CPT Code: 86021 FULL RESULT: EXAM: CHEST RADIOGRAPHY EXAM DATE: 11/19/2018 05:58 PM. CLINICAL HISTORY: Cough cp. COMPARISON: CHEST 2 VIEW 07/10/2018 4:25 PM. TECHNIQUE: 2 views. FINDINGS: Lungs/Pleura: No focal opacities evident. No pleural effusion. No pneumothorax. Normal volumes. Mediastinum: Heart and mediastinal contours are unremarkable. Other: None. IMPRESSION: No acute cardiopulmonary abnormality. RADIA
[2018-11-19 19:09] VITALS: BP 109/70
== END 2018-11-19 19:09 | disposition home or self-care (01) ==
LOC: ED 15:43
DX: R05 Cough (principal); R07.82 Intercostal pain; F17.200 Nicotine dependence, unspecified, uncomplicated
CPT/HCPCS: 36415; 71046; 80048; 85379; 93005; 99283

== ENCOUNTER 2018-12-18 20:16 | Emergency (ER) | payer OTHER ==
[2018-12-18 20:22] VITALS: BP 114/65
--- NOTE | 2018-12-18 20:40 | XRAY Report ---
Reason: injury Procedure Date: 12/18/2018 Accession Number: [id number] / [id number] Procedure: XR - Foot 3 View RT CPT Code: FULL RESULT: EXAM: RIGHT FOOT RADIOGRAPHY EXAM DATE: 12/18/2018 08:32 PM. CLINICAL HISTORY: Injury, pain COMPARISON: None. TECHNIQUE: 3 views. FINDINGS: Bones: Bony mineralization appears appropriate. No acute fracture or focal osseous destruction. Joints: Alignment and joint spaces appear maintained. Soft Tissues: No radiopaque foreign body. Mild soft tissue swelling. IMPRESSION: Mild soft tissue swelling. No acute fracture or dislocation identified. RADIA
--- NOTE | 2018-12-18 21:34 | ED Physician Documentation ---
PD HPI LOWER EXT INJURY - Stated complaint Stated Complaint: R FOOT INJ - Chief complaint Chief Complaint: Trauma Ext - History obtained from History obtained from: Patient - History of Present Illness PD HPI LOW EXT INJURY LOCATION: Right, Foot Type of injury: Blunt / blow (she accidentally struck it against door jam while playing. local pain and swelling.) Where injury occurred: Home Timing - onset: Today Timing - details: Abrupt onset, Still present Worsened by: Moving, Palpating, Other (walking) Associated symptoms: Swelling. 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 : None HEENT: None Psych: None Musculoskeletal: None Derm: None - Past Surgical History Past Surgical History: Yes /SUPERVISOR GATE SERVICES: section, 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 - Present Medications Home Medications: Ambulatory Orders Medication Instructions Recorded Confirmed No Known Home Medications 11/19/18 11/19/18 - Allergies Allergies/Adverse Reactions: Allergies Allergy/AdvReac Type Severity Reaction Status Date / Time No Known Drug Allergies Allergy Verified 12/18/18 20:22 - Social History Does the pt smoke?: No Smoking Status: Current every day smoker Does the pt drink ETOH?: Yes Does the pt have substance abuse?: Yes - Immunizations Immunizations are current?: No Immunizations: TDAP >10years/unknown - POLST Patient has POLST: No PD ED PE NORMAL - Vitals Vital signs reviewed: Yes - General General: Alert and oriented X 3, No acute distress, Well developed/nourished - Extremities Extremities: Other (right foot with local swelling and tenderness over dorsolateral aspect of mid foot. Ankle not tender. ) - Neuro Neuro: Alert and oriented X 3, No motor deficit, No sensory deficit Results - Vitals Vitals: Oxygen O2 Source Room air - Rads (name of study) right foot Radiology: Prelim report reviewed, EMP read contemporaneously (no fractures), See rad report PD MEDICAL DECISION MAKING - ED course Complexity details: considered differential, d/w patient Departure - Departure Disposition: 01 Home, Self Care Clinical Impression: Contusion of right foot Qualifiers: Encounter type: initial encounter Qualified Code(s): S90.31XA - Contusion of right foot, initial encounter Condition: Stable Record reviewed to determine appropriate education?: Yes Instructions: ED Contusion Foot Follow-Up: Karri Miramontes ARNP [Primary Care Provider] - Comments: There are no fractures seen on x-ray. Tylenol or ibuprofen or both if needed for pains. Minimal walking and activity. I would expect this to improve over a couple of days. Ice and elevate it often tonight. Discharge Date/Time: 12/18/18 22:15
[2018-12-18] MEDS ORDERED: ACETAMINOPHEN 325 MG TABLET PO STA (21:46)
[2018-12-18] MEDS ORDERED: IBUPROFEN 600 MG TABLET PO STA (21:46)
== END 2018-12-18 22:15 | disposition home or self-care (01) ==
LOC: ED 20:16
DX: S90.31XA Contusion of right foot, initial encounter (principal); W22.09XA Striking against other stationary object, initial encounter; Y92.009 Unspecified place in unspecified non-institutional (private) residence as the place of occurrence of the external cause; F17.200 Nicotine dependence, unspecified, uncomplicated
CPT/HCPCS: 73630; 99282; 99283; A9270

== ENCOUNTER 2019-03-26 19:54 | Emergency (ER) | payer OTHER ==
[2019-03-26 20:21] LABS: BILIRUBIN,URINE NEGATIVE (NEGATIVE); GLUCOSE, URINE (UA) NEGATIVE (NEGATIVE); KETONES,URINE (UA) NEGATIVE (NEGATIVE); LEUKOCYTE ESTERASE, URINE SMALL (NEGATIVE); NITRITE,URINE POSITIVE (NEGATIVE); OCCULT BLOOD,URINE TRACE-INTA (NEGATIVE); PROTEIN,URINE NEGATIVE (NEGATIVE); UROBILINOGEN,URINE 0.2 (NORMAL) E.U./dL (NORMAL)
[2019-03-26 20:25] LABS: BASOPHILS % (AUTO) 0.4 %; EOSINOPHILS # (AUTO) 0.1 10^3/uL (0.0-0.7); EOSINOPHILS % (AUTO) 1.6 %; HGB - HEMOGLOBIN 12.5 g/dL (12.0-16.0); LYMPHOCYTES # (AUTO) 2.3 10^3/uL (1.5-3.5); LYMPHOCYTES % (AUTO) 28.5 %; MEAN CORPUSCULAR HEMOGLOBIN 29.6 pg (27.0-31.0); MEAN CORPUSCULAR HGB CONC 33.2 g/dL (32.0-36.0); MEAN CORPUSCULAR VOLUME 88.9 fL (81.0-99.0); MEAN PLATELET VOLUME 9.8 fL (7.9-10.8); MONOCYTES # (AUTO) 0.7 10^3/uL (0.0-1.0); NEUTROPHILS % (AUTO) 60.3 %; PLT - PLATELET COUNT 231 10^3/uL (130-450); RED BLOOD COUNT 4.23 10^6/uL (4.20-5.40); RED CELL DISTRIBUTION WIDTH 12.6 % (12.0-15.0); WHITE BLOOD COUNT 8.2 x10^3/uL (4.8-10.8)
[2019-03-26 20:26] LABS: CLARITY,URINE HAZY (CLEAR)
[2019-03-26 20:41] LABS: BACTERIA,URINE Many /HPF (None Seen); RBC,URINE 0-5 /HPF (0-5); SQUAMOUS EPITHELIAL CELL,UR NONE SEEN (<= Few)
[2019-03-26 20:42] LABS: ALBUMIN/GLOBULIN RATIO 1.1 (1.0-2.2); BILIRUBIN,TOTAL 0.3 mg/dL (0.2-1.0); CALCIUM 9.1 mg/dL (8.5-10.3); CREATININE 0.7 mg/dL (0.4-1.0); TOTAL PROTEIN 7.8 g/dL (6.7-8.2)
--- NOTE | 2019-03-26 21:08 | ED Physician Documentation ---
PD HPI ABD PAIN - Stated complaint Stated Complaint: AB/BACK PX - Chief complaint Chief Complaint: Abd Pain - History obtained from History obtained from: Patient - History of Present Illness Timing - onset: Today Timing - details: Gradual onset, Waxing and waning Pain level now: 10 Quality: Pain Location: RUQ Radiation: Other (radiates around both flanks to back) Improved by: Other (nothing) Worsened by: Other (no exacerbating factors) Associated symptoms: Dysuria, Other (urinary urgency). No: Fever, Nausea, Vomiting, Diarrhea, Constipation Recently seen: Other ( [facility] ED visit on [facility] records, [facility] ED visit 2019) Review of Systems Constitutional: denies: Fever, Chills, Sweats Cardiac: reports: Reviewed and negative Respiratory: reports: Reviewed and negative GI: reports: Abdominal Pain. denies: Nausea, Vomiting, Constipation, Diarrhea : reports: Dysuria, Other (urinary urgency). 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 TRAINER: None : None HEENT: None Psych: None Musculoskeletal: None Derm: None Other Past Medical History: h pylori - Past Surgical History Past Surgical History: Yes /DIABETES TRAINER: section, 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 - Present Medications Home Medications: Ambulatory Orders Medication Instructions Recorded Confirmed Nitrofurantoin Monohyd/M-Cryst 100 mg PO BID #10 capsule 03/26/19 [Macrobid 100 mg Capsule] Phenazopyridine HCl [Pyridium] 200 mg PO TID PRN #6 tablet 03/26/19 - Allergies Allergies/Adverse Reactions: Allergies Allergy/AdvReac Type Severity Reaction Status Date / Time No Known Drug Allergies Allergy Verified 12/18/18 20:22 - Social History Does the pt smoke?: No Smoking Status: Never smoker Does the pt drink ETOH?: Yes Does the pt have substance abuse?: Yes Substance Use and Type: Marijuana - Immunizations Immunizations are current?: No Immunizations: TDAP >10years/unknown - POLST Patient has POLST: No PD ED PE NORMAL - Vitals Vital signs reviewed: Yes - General General: Alert and oriented X 3, No acute distress, Well developed/nourished - Cardiac Cardiac: RRR, No murmur - Respiratory Respiratory: No respiratory distress, Clear bilaterally - Abdomen Abdomen: Normal bowel sounds, Soft, Non tender, Non distended, No organomegaly - Back Back: No CVA TTP - Derm Derm: Normal color, Warm and dry, No rash Results - Vitals Vitals: Vital Signs - 24 hr 03/26/19 03/26/19 19:58 21:53 Temperature 36.9 C Heart Rate 89 76 Respiratory 18 16 Rate Blood Pressure 141/78 H 116/90 H O2 Saturation 100 99 Oxygen O2 Source Room air - Labs Labs: Laboratory Tests 03/26/19 03/26/19 03/26/19 20:07 20:20 20:20 WBC 8.2 RBC 4.23 Hgb 12.5 Hct 37.6 MCV 88.9 MCH 29.6 MCHC 33.2 RDW 12.6 Plt Count 231 MPV 9.8 Neut # (Auto) 5.0 Lymph # (Auto) 2.3 [place] # (Auto) 0.7 Eos # (Auto) 0.1 Baso # (Auto) 0.0 Absolute Nucleated RBC 0.00 Nucleated RBC % 0.0 Sodium 138 Potassium 3.7 Chloride 104 Carbon Dioxide 25 Anion Gap 9.0 BUN 16 Creatinine 0.7 Estimated GFR (MDRD) 96 Glucose 100 Calcium 9.1 Total Bilirubin 0.3 AST 19 ALT 12 Alkaline Phosphatase 48 Total Protein 7.8 Albumin 4.0 Globulin 3.8 Albumin/Globulin Ratio 1.1 Lipase 30 Urine Color YELLOW Urine Clarity HAZY Urine pH 6.0 Ur Specific [place] 1.010 Urine Protein NEGATIVE Urine Glucose (UA) NEGATIVE Urine Ketones NEGATIVE Urine Occult Blood TRACE-INTA Urine Nitrite POSITIVE H Urine Bilirubin NEGATIVE Urine Urobilinogen 0.2 (NORMAL) Ur Leukocyte Esterase SMALL H Urine RBC 0-5 Urine WBC 11-25 H Ur Squamous Epith Cells NONE SEEN Urine Bacteria Many H Ur Microscopic Review INDICATED Urine Culture Comments INDICATED PD MEDICAL DECISION MAKING - ED course Complexity details: reviewed old records, reviewed results, re-evaluated patient, considered differential, d/w patient Departure - Departure Disposition: 01 Home, Self Care Clinical Impression: Cystitis Condition: Good Health Concerns: abdominal pain Plan of Treatment: antibiotic for UTI, follow up with PCP Care Goals: resolution of symptoms Assessment: see diagnosis Instructions: ED UTI Cystitis Female Follow-Up: Karri Miramontes ARNP [Primary Care Provider] - Prescriptions: Nitrofurantoin Monohyd/M-Cryst [Macrobid 100 mg Capsule] 100 mg PO BID #10 ca psule Phenazopyridine HCl [Pyridium] 200 mg PO TID PRN #6 tablet PRN Reason: dysuria Discharge Date/Time: 03/26/19 21:53
[2019-03-26] MEDS ORDERED: KETOROLAC 60 MG/2 ML VIAL IM STA (21:40)
[2019-03-26] MEDS ORDERED: NITROFURANTOIN MACRO 100 MG CAPSULE PO STA (21:41)
[2019-03-26] MEDS ORDERED: PHENAZOPYRIDINE 100 MG TABLET PO STA (21:41)
[2019-03-26 21:54] VITALS: BP 116/90
== END 2019-03-26 21:53 | disposition home or self-care (01) ==
LOC: ED 19:54
DX: N30.90 Cystitis, unspecified without hematuria (principal)
CPT/HCPCS: 80053; 81001; 83690; 85025; 87086; 87181; 96372; 99283; A9270; 81003

== ENCOUNTER 2019-05-05 23:55 | Emergency (ER) | payer OTHER ==
[2019-05-06 00:57] LABS: BASOPHILS # (AUTO) 0.1 10^3/uL (0.0-0.1); BASOPHILS % (AUTO) 0.6 %; EOSINOPHILS # (AUTO) 0.2 10^3/uL (0.0-0.7); EOSINOPHILS % (AUTO) 2.6 %; HGB - HEMOGLOBIN 13.2 g/dL (12.0-16.0); LYMPHOCYTES # (AUTO) 2.8 10^3/uL (1.5-3.5); LYMPHOCYTES % (AUTO) 33.3 %; MEAN CORPUSCULAR HEMOGLOBIN 29.4 pg (27.0-31.0); MEAN CORPUSCULAR HGB CONC 33.2 g/dL (32.0-36.0); MEAN CORPUSCULAR VOLUME 88.6 fL (81.0-99.0); MEAN PLATELET VOLUME 10.2 fL (7.9-10.8); MONOCYTES # (AUTO) 0.8 10^3/uL (0.0-1.0); MONOCYTES % (AUTO) 9.6 %; NEUTROPHILS # (AUTO) 4.5 10^3/uL (1.5-6.6); NEUTROPHILS % (AUTO) 53.7 %; PLT - PLATELET COUNT 238 10^3/uL (130-450); RED BLOOD COUNT 4.49 10^6/uL (4.20-5.40); RED CELL DISTRIBUTION WIDTH 12.7 % (12.0-15.0); WHITE BLOOD COUNT 8.4 x10^3/uL (4.8-10.8)
[2019-05-06 01:14] LABS: ALBUMIN/GLOBULIN RATIO 1.1 (1.0-2.2); BILIRUBIN,TOTAL 0.6 mg/dL (0.2-1.0); CALCIUM 9.4 mg/dL (8.5-10.3); CREATININE 0.7 mg/dL (0.4-1.0); TOTAL PROTEIN 7.5 g/dL (6.7-8.2)
[2019-05-06 01:25] LABS: BILIRUBIN,URINE NEGATIVE (NEGATIVE); GLUCOSE, URINE (UA) NEGATIVE (NEGATIVE); KETONES,URINE (UA) NEGATIVE (NEGATIVE); LEUKOCYTE ESTERASE, URINE TRACE (NEGATIVE); NITRITE,URINE NEGATIVE (NEGATIVE); OCCULT BLOOD,URINE NEGATIVE (NEGATIVE); PROTEIN,URINE NEGATIVE (NEGATIVE); UROBILINOGEN,URINE 0.2 (NORMAL) E.U./dL (NORMAL)
[2019-05-06 01:26] LABS: CLARITY,URINE CLEAR (CLEAR); HCG UR QUAL NEGATIVE
[2019-05-06] MEDS ORDERED: KETOROLAC 30 MG/ML VIAL IVP STA (01:30)
[2019-05-06] MEDS ORDERED: ONDANSETRON 4 MG/2 ML VIAL IVP STA (01:30)
[2019-05-06] MEDS ORDERED: SODIUM CHLORIDE 0.9% 1,000 ML IV ONE (01:30)
[2019-05-06 01:36] LABS: BACTERIA,URINE Rare /HPF (None Seen); RBC,URINE None Seen /HPF (0-5); SQUAMOUS EPITHELIAL CELL,UR FEW Squamous (<= Few)
[2019-05-06] MEDS ORDERED: cefTRIAXone 2 GM in SODIUM CHLORIDE 0.9% MINIBAG 100 ML IV STA (02:55)
[2019-05-06] MEDS ORDERED: CALCIUM CARBONATE CHEW 500 MG TABLET PO STA (03:40)
--- NOTE | 2019-05-06 04:32 | ED Physician Documentation ---
PD HPI BACK PAIN - Stated complaint Stated Complaint: SOA,DIZZY - Chief complaint Chief Complaint: Abd Pain - History obtained from History obtained from: Patient - History of Present Illness Timing - onset: Today, Other (just prior to arrival) Timing - details: Abrupt onset Location: Mid Quality: Pain Associated symptoms: No: Fever, Weakness, Numbness, Incontinent of urine, Hematuria Improves with: Rest Worsened by: Movement Recently seen: Not recently seen - Additional information Additional information: This is a 33-year-old woman who has been having back pain for about a week now it is across the lower back bilaterally for the past few days has become constant. She thought it was a kidney infection and was trying to just ride it out at home. It does wrap around into the left groin whenever she urinates. She said no dysuria but she is had frequency no blood. No pain radiating down the legs. Last night she went to sleep and woke up abruptly about an hour prior to presentation feeling like she could not breathe and that she might pass out. She felt like she was having a panic attack. She is very lightheaded and had palpitations but she did not pass out. She was short of breath. Denied pleuritic pain. She has not had fever. The patient was recently treated with antibiotics for urinary tract infection about a month ago. She does admit to drinking a little alcohol this weekend but says it was not excessive and denies use of other drugs. She denies stating she is status post bilateral tubal ligation. Denies injury to her low back Review of Systems Constitutional: denies: Fever Throat: denies: Sore throat Cardiac: reports: Palpitations Respiratory: reports: Dyspnea. denies: Cough GI: reports: Abdominal Pain. denies: Nausea, Vomiting, Diarrhea : reports: Frequency, Other (Denies stating she status post tubal ligation). 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: section, 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 - Present Medications Home Medications: Ambulatory Orders Medication Instructions Recorded Confirmed Nitrofurantoin Monohyd/M-Cryst 100 mg PO BID #10 capsule 03/26/19 [Macrobid 100 mg Capsule] Phenazopyridine HCl [Pyridium] 200 mg PO TID PRN #6 tablet 03/26/19 Nitrofurantoin Monohyd/M-Cryst 100 mg PO BID #14 capsule 05/06/19 [Macrobid 100 mg Capsule] - Allergies Allergies/Adverse Reactions: Allergies Allergy/AdvReac Type Severity Reaction Status Date / Time No Known Drug Allergies Allergy Verified 05/06/19 00:12 - Social History Does the pt smoke?: No Smoking Status: Never smoker Does the pt drink ETOH?: Yes Does the pt have substance abuse?: Yes - Immunizations Immunizations are current?: No Immunizations: TDAP >10years/unknown - POLST Patient has POLST: No PD ED PE NORMAL - Vitals Vital signs reviewed: Yes - General General: Alert and oriented X 3, No acute distress, Well developed/nourished, Other (Pleasant 33-year-old in no distress) - HEENT HEENT: Atraumatic, PERRL, Moist mucous membranes - Neck Neck: Supple, no meningeal sign, No adenopathy, Thyroid normal - Cardiac Cardiac: RRR, No murmur, No rub, Strong equal pulses - Respiratory Respiratory: No respiratory distress, Clear bilaterally - Abdomen Abdomen: Normal bowel sounds, Soft, Non tender, Non distended, No organomegaly - Back Back: No CVA TTP - Derm Derm: Normal color, Warm and dry, No rash - Extremities Extremities: No deformity, No edema - Neuro Neuro: Alert and oriented X 3, credit card interviewer 2-12 intact, No motor deficit, No sensory deficit, Normal speech - Psych Psych: Normal mood, Normal affect Results - Vitals Vitals: Vital Signs - 24 hr 05/06/19 05/06/19 05/06/19 00:10 02:22 04:46 Temperature 36.7 C 36.6 C 36.9 C Heart Rate 88 69 95 Respiratory 18 18 18 Rate Blood Pressure 112/58 L 111/70 103/63 O2 Saturation 100 100 100 05/06/19 04:54 Temperature 36.9 C Heart Rate 95 Respiratory 18 Rate Blood Pressure 103/63 O2 Saturation 100 Oxygen O2 Source Room air - Labs Labs: Laboratory Tests 05/06/19 05/06/19 05/06/19 00:45 00:45 01:22 WBC 8.4 RBC 4.49 Hgb 13.2 Hct 39.8 MCV 88.6 MCH 29.4 MCHC 33.2 RDW 12.7 Plt Count 238 MPV 10.2 Neut # (Auto) 4.5 Lymph # (Auto) 2.8 [place] # (Auto) 0.8 Eos # (Auto) 0.2 Baso # (Auto) 0.1 Absolute Nucleated RBC 0.00 Nucleated RBC % 0.0 Sodium 140 Potassium 3.2 L Chloride 106 Carbon Dioxide 23 Anion Gap 11.0 BUN 14 Creatinine 0.7 Estimated GFR (MDRD) 96 Glucose 143 H Calcium 9.4 Total Bilirubin 0.6 AST 19 ALT 13 Alkaline Phosphatase 45 Total Protein 7.5 Albumin 4.0 Globulin 3.5 Albumin/Globulin Ratio 1.1 Lipase 26 Urine Color YELLOW Urine Clarity CLEAR Urine pH 6.0 Ur Specific [place] 1.010 Urine Protein NEGATIVE Urine Glucose (UA) NEGATIVE Urine Ketones NEGATIVE Urine Occult Blood NEGATIVE Urine Nitrite NEGATIVE Urine Bilirubin NEGATIVE Urine Urobilinogen 0.2 (NORMAL) Ur Leukocyte Esterase TRACE H Urine RBC None Seen Urine WBC 4-5 Ur Squamous Epith Cells FEW Squamous Urine Bacteria Rare Ur Microscopic Review INDICATED Urine Culture Comments INDICATED Urine HCG, Qual NEGATIVE PD MEDICAL DECISION MAKING - ED course ED course: Patient's white blood cell count was normal and chemistries were normal. She had 4-5 white blood cells in her urinalysis and she is not . I do not have a clear explanation of why she woke up in a panic tonight. She was given Toradol IV and Zofran and states that her pain is significantly improved. We discussed her labs and I went ahead and medicated her with Rocephin IV and plan to place her on Macrobid for a week. She did drink lots of water and use ibuprofen if needed for pain. Follow-up with her primary care provider if not improving or if she continues to have episodes of feeling panicked Departure - Departure Disposition: 01 Home, Self Care Clinical Impression: Panic attack UTI (urinary tract infection) Qualifiers: Urinary tract infection type: site unspecified Hematuria presence: without hematuria Qualified Code(s): N39.0 - Urinary tract infection, site not specified Condition: Good Instructions: ED Kidney Infec Female Follow-Up: Karri Miramontes ARNP [Primary Care Provider] - Prescriptions: Nitrofurantoin Monohyd/M-Cryst [Macrobid 100 mg Capsule] 100 mg PO BID #14 capsule Comments: Take the Macrobid as prescribed. Make sure you are drinking lots of water. Use ibuprofen if needed for back pain follow-up with your primary care provider if your symptoms persist particularly if you are having further panic attacks. Discharge Date/Time: 05/06/19 04:54
[2019-05-06 04:47] VITALS: BP 103/63
== END 2019-05-06 04:54 | disposition home or self-care (01) ==
LOC: ED 23:55
DX: F41.0 Panic disorder [episodic paroxysmal anxiety] (principal); N39.0 Urinary tract infection, site not specified; M54.5 Low back pain
CPT/HCPCS: 36415; 80053; 81001; 81025; 83690; 85025; 87077; 87086; 87181; 96361; 96365; 96375; 99284; A9270; 81003

== ENCOUNTER 2019-05-09 09:31 | Emergency (ER) | payer OTHER ==
[2019-05-09 10:06] LABS: BILIRUBIN,URINE NEGATIVE (NEGATIVE); GLUCOSE, URINE (UA) NEGATIVE (NEGATIVE); KETONES,URINE (UA) NEGATIVE (NEGATIVE); LEUKOCYTE ESTERASE, URINE NEGATIVE (NEGATIVE); NITRITE,URINE NEGATIVE (NEGATIVE); OCCULT BLOOD,URINE NEGATIVE (NEGATIVE); PH,URINE 6.5 PH (5.0-7.5); PROTEIN,URINE NEGATIVE (NEGATIVE); UROBILINOGEN,URINE 0.2 (NORMAL) E.U./dL (NORMAL)
[2019-05-09 10:07] LABS: CLARITY,URINE HAZY (CLEAR); HCG UR QUAL NEGATIVE
[2019-05-09] MEDS ORDERED: LORazepam 1 MG TABLET PO STA (10:10)
[2019-05-09 10:13] LABS: BACTERIA,URINE Few /HPF (None Seen); RBC,URINE 0-5 /HPF (0-5); SQUAMOUS EPITHELIAL CELL,UR MANY Squamous (<= Few)
[2019-05-09 10:26] LABS: BASOPHILS % (AUTO) 0.6 %; EOSINOPHILS # (AUTO) 0.2 10^3/uL (0.0-0.7); EOSINOPHILS % (AUTO) 2.9 %; LYMPHOCYTES # (AUTO) 1.3 10^3/uL (1.5-3.5); LYMPHOCYTES % (AUTO) 20.5 %; MEAN CORPUSCULAR HEMOGLOBIN 29.8 pg (27.0-31.0); MEAN CORPUSCULAR HGB CONC 33.2 g/dL (32.0-36.0); MEAN CORPUSCULAR VOLUME 89.7 fL (81.0-99.0); MEAN PLATELET VOLUME 10.2 fL (7.9-10.8); MONOCYTES # (AUTO) 0.5 10^3/uL (0.0-1.0); MONOCYTES % (AUTO) 8.2 %; NEUTROPHILS # (AUTO) 4.2 10^3/uL (1.5-6.6); NEUTROPHILS % (AUTO) 67.6 %; PLT - PLATELET COUNT 228 10^3/uL (130-450); RED BLOOD COUNT 4.36 10^6/uL (4.20-5.40); RED CELL DISTRIBUTION WIDTH 12.2 % (12.0-15.0); WHITE BLOOD COUNT 6.2 x10^3/uL (4.8-10.8)
[2019-05-09 10:39] LABS: ACETAMINOPHEN < 10 ug/mL (10-30); ALBUMIN 4.1 g/dL (3.2-5.5); ALBUMIN/GLOBULIN RATIO 1.1 (1.0-2.2); ALKALINE PHOSPHATASE 38 IU/L (42-121); ALT ALANINE AMINOTRANSFERASE 11 IU/L (10-60); AST ASPARTATE AMINOTRANSFERASE 17 IU/L (10-42); BILIRUBIN,TOTAL 0.8 mg/dL (0.2-1.0); BUN - BLOOD UREA NITROGEN 13 mg/dL (6-20); CALCIUM 9.6 mg/dL (8.5-10.3); CARBON DIOXIDE - CO2 25 mmol/L (21-32); CHLORIDE 106 mmol/L (101-111); CREATININE 0.6 mg/dL (0.4-1.0); GFR - MDRD 115 (>89); GLUCOSE 102 mg/dL (70-100); LIPASE 26 U/L (22-51); SALICYLATE < 6.0 mg/dL; SODIUM 141 mmol/L (135-145); TOTAL PROTEIN 7.8 g/dL (6.7-8.2)
--- NOTE | 2019-05-09 12:20 | ED Physician Documentation ---
History of Present Illness - Stated complaint Stated Complaint: ANXIETY - Chief complaint Chief Complaint: General - History obtained from History obtained from: Patient - History of Present Illness Timing: How many days ago (several) Pain level max: 0 Pain level now: 0 - Additonal information Additional information: 33-year-old female with his increasing anxiety over the past several days. She does not point to any specific trigger. Feels like she has trouble breathing sometimes. She states that she had a headache a few days ago. States that she is concerned about her health. Is being treated for UTI. 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 : Kidney stones HEENT: None Psych: None Musculoskeletal: None Derm: None - Past Surgical History Past Surgical History: Yes /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: Yes Does the pt have substance abuse?: Yes - Immunizations Immunizations are current?: No Immunizations: TDAP >10years/unknown - POLST Patient has POLST: No PD ED PE NORMAL - Vitals Vital signs reviewed: Yes - General General: Alert and oriented X 3, No acute distress - HEENT HEENT: PERRL, Ears normal, Moist mucous membranes, Pharynx benign - Neck Neck: Supple, no meningeal sign - Cardiac Cardiac: RRR, Strong equal pulses - Respiratory Respiratory: No respiratory distress, Clear bilaterally - Abdomen Abdomen: Soft, Non tender, Non distended - Back Back: No CVA TTP - Derm Derm: Warm and dry - Neuro Neuro: Alert and oriented X 3 - Psych Psych: Normal mood, Normal affect Results - Vitals Vitals: Vital Signs - 24 hr 05/09/19 05/09/19 05/09/19 09:36 09:58 12:27 Temperature 36.9 C 37.0 C Heart Rate 66 69 74 Respiratory 20 20 15 Rate Blood Pressure 120/73 125/93 H 116/71 O2 Saturation 100 99 99 Oxygen O2 Source Room air - Labs Labs: Laboratory Tests 05/09/19 05/09/19 05/09/19 09:50 10:20 10:20 WBC 6.2 RBC 4.36 Hgb 13.0 Hct 39.1 MCV 89.7 MCH 29.8 MCHC 33.2 RDW 12.2 Plt Count 228 MPV 10.2 Neut # (Auto) 4.2 Lymph # (Auto) 1.3 L [place] # (Auto) 0.5 Eos # (Auto) 0.2 Baso # (Auto) 0.0 Absolute Nucleated RBC 0.00 Nucleated RBC % 0.0 Sodium 141 Potassium 3.9 Chloride 106 Carbon Dioxide 25 Anion Gap 10.0 BUN 13 Creatinine 0.6 Estimated GFR (MDRD) 115 Glucose 102 H Calcium 9.6 Total Bilirubin 0.8 AST 17 ALT 11 Alkaline Phosphatase 38 L Total Protein 7.8 Albumin 4.1 Globulin 3.7 Albumin/Globulin Ratio 1.1 Lipase 26 TSH Urine Color YELLOW Urine Clarity HAZY Urine pH 6.5 Ur Specific [place] 1.010 Urine Protein NEGATIVE Urine Glucose (UA) NEGATIVE Urine Ketones NEGATIVE Urine Occult Blood NEGATIVE Urine Nitrite NEGATIVE Urine Bilirubin NEGATIVE Urine Urobilinogen 0.2 (NORMAL) Ur Leukocyte Esterase NEGATIVE Urine RBC 0-5 Urine WBC 0-3 Ur Squamous Epith Cells MANY Squamous H Urine Bacteria Few Ur Microscopic Review INDICATED Urine Culture Comments NOT INDICATED Urine HCG, Qual NEGATIVE Salicylates < 6.0 Acetaminophen < 10 L Ethyl Alcohol < 5.0 05/09/19 10:20 WBC RBC Hgb Hct MCV MCH MCHC RDW Plt Count MPV Neut # (Auto) Lymph # (Auto) [place] # (Auto) Eos # (Auto) Baso # (Auto) Absolute Nucleated RBC Nucleated RBC % Sodium Potassium Chloride Carbon Dioxide Anion Gap BUN Creatinine Estimated GFR (MDRD) Glucose Calcium Total Bilirubin AST ALT Alkaline Phosphatase Total Protein Albumin Globulin Albumin/Globulin Ratio Lipase TSH 0.61 Urine Color Urine Clarity Urine pH Ur Specific [place] Urine Protein Urine Glucose (UA) Urine Ketones Urine Occult Blood Urine Nitrite Urine Bilirubin Urine Urobilinogen Ur Leukocyte Esterase Urine RBC Urine WBC Ur Squamous Epith Cells Urine Bacteria Ur Microscopic Review Urine Culture Comments Urine HCG, Qual Salicylates Acetaminophen Ethyl Alcohol PD MEDICAL DECISION MAKING - ED course Complexity details: reviewed old records, reviewed results, re-evaluated patient, considered differential, d/w patient, d/w web consultant ED course: Patient with what appears to be increasing anxiety. Social work was consulted and evaluated the patient. We will set up with outpatient therapy. She has an appointment on May 22 at 8:20 AM with her PCM for referral to behavioral health. Will prescribe a small amount of Xanax for home. She feels better after Ativan here. Patient counseled regarding signs and symptoms for which I believe and urgent re-evaluation would be necessary. Patient with good understanding of and agreement to plan and is comfortable going home at this time This document was made in part using voice recognition software. While efforts are made to proofread this document, sound alike and grammatical errors may occur. Departure - Departure Disposition: 01 Home, Self Care Clinical Impression: Anxiety Condition: Good Instructions: ED Panic Attack Follow-Up: Karri Miramontes ARNP [Primary Care Provider] - Within 1 week Prescriptions: Alprazolam [Xanax] 0.5 mg PO Q8H PRN #7 tablet PRN Reason: Anxiety Comments: You can use the Xanax as needed for anxiety. Do not drink alcohol with this medication. Do not drive or operate heavy machinery while taking this medication either. Return if you worsen. Follow-up with your doctor for further care. You should see an outpatient counselor as directed by social work today. Discharge Date/Time: 05/09/19 12:27
[2019-05-09 12:28] VITALS: BP 116/71
== END 2019-05-09 12:27 | disposition home or self-care (01) ==
LOC: ED 09:31
DX: F41.9 Anxiety disorder, unspecified (principal)
CPT/HCPCS: 36415; 80320; 80329; 81001; 81025; 83690; 99283; J8499; 80053; 80306; 80307; 81003; 84443; 85025; 87086

== ENCOUNTER 2019-05-13 15:30 | Emergency (ER) | payer OTHER ==
[2019-05-13 15:50] VITALS: BP 128/83
[2019-05-13] MEDS ORDERED: AMOXICILLIN 250 MG CAPSULE PO STA (17:57)
--- NOTE | 2019-05-13 17:59 | ED Physician Documentation ---
PD HPI HEENT - Stated complaint Stated Complaint: MOUTH PX - Chief complaint Chief Complaint: Heent - History obtained from History obtained from: Patient, Family - History of Present Illness Timing - onset: How many weeks ago (1) Timing - duration: Weeks (1) Timing - details: Gradual onset, Still present Location: Tooth Improves: Medication Worsens: Everything Associated symptoms: Facial swelling, Headache. No: Fever, Congestion Similar symptoms before: Diagnosis (dental abscess) Recently seen: Not recently seen - Additional information Additional information: 33-year-old female is begin to experience some pain in her right jaw she has a broken tooth upper and lower and she is begin to feel some swelling to the side of her neck. She called her dentist she is got an appointment to see them tomorrow they have asked her to come to the emergency department to start on antibiotic. She is not allergic to anything. 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 - Present Medications Home Medications: Ambulatory Orders Medication Instructions Recorded Confirmed Phenazopyridine HCl [Pyridium] 200 mg PO TID PRN #6 tablet 03/26/19 Nitrofurantoin Monohyd/M-Cryst 100 mg PO BID #14 capsule 05/06/19 [Macrobid 100 mg Capsule] Alprazolam [Xanax] 0.5 mg PO Q8H PRN #7 tablet 05/09/19 Amoxicillin 875 mg PO BID #14 tablet 05/13/19 - Allergies Allergies/Adverse Reactions: Allergies Allergy/AdvReac Type Severity Reaction Status Date / Time No Known Drug Allergies Allergy Verified 05/13/19 15:50 - Social History Does the pt smoke?: No Smoking Status: Never smoker Does the pt drink ETOH?: Yes Does the pt have substance abuse?: Yes - Immunizations Immunizations are current?: No Immunizations: TDAP >10years/unknown - POLST Patient has POLST: No PD ED PE NORMAL - Vitals Vital signs reviewed: Yes (hypertensive) - General General: Alert and oriented X 3, No acute distress, Well developed/nourished - HEENT HEENT: Atraumatic, PERRL, EOMI, Other (There is a broken lower tooth that is tender 2nd to the last molar on the right side. ) - Neck Neck: Supple, no meningeal sign, No bony TTP - Respiratory Respiratory: No respiratory distress - Derm Derm: Normal color, Warm and dry, No rash - Extremities Extremities: No deformity, No edema - Neuro Neuro: Alert and oriented X 3, nurse sexual assault 2-12 intact, No motor deficit, No sensory deficit, Normal speech Eye Opening: Spontaneous Motor: Obeys Commands Verbal: Oriented GCS Score: 15 - Psych Psych: Normal mood, Normal affect Results - Vitals Vitals: Vital Signs - 24 hr 05/13/19 15:48 Temperature 36.4 C L Heart Rate 66 Respiratory 19 Rate Blood Pressure 128/83 H O2 Saturation 100 Oxygen O2 Source Room air PD MEDICAL DECISION MAKING - ED course Complexity details: reviewed results, re-evaluated patient, considered differential, d/w patient ED course: 33 y/o female with a broken tooth and pain symptoms is administered amoxicillin 750mg PO here. Departure - Departure Disposition: 01 Home, Self Care Clinical Impression: Dental abscess Condition: Stable Instructions: ED Abscess Dental Follow-Up: Karri Miramontes ARNP [Primary Care Provider] - Prescriptions: Amoxicillin 875 mg PO BID #14 tablet
== END 2019-05-13 18:16 | disposition home or self-care (01) ==
LOC: ED 15:30
DX: K04.7 Periapical abscess without sinus (principal); S02.5XXA Fracture of tooth (traumatic), initial encounter for closed fracture; X58.XXXA Exposure to other specified factors, initial encounter
CPT/HCPCS: 99282; 99284; A9270

== ENCOUNTER 2019-05-17 22:49 | Emergency (ER) | payer OTHER ==
--- NOTE | 2019-05-17 23:36 | ED Physician Documentation ---
History of Present Illness - Stated complaint Stated Complaint: HEADACHE,NAUSEA,L LEG PAIN - Chief complaint Chief Complaint: Heent - History obtained from History obtained from: Patient - History of Present Illness Timing: Today Pain level max: 4 Pain level now: 2 - Additonal information Additional information: 4th [facility] ED visit this month, 14th [facility] ED visit past 12 months. c/o headache, R>L, with pressure, stiffness in neck. also c/o LLE lateral thigh paresthesias x 1-2 days. nausea, no vomiting Review of Systems Constitutional: reports: Reviewed and negative Cardiac: reports: Reviewed and negative Respiratory: reports: Reviewed and negative GI: reports: Nausea. denies: Abdominal Pain, Vomiting Musculoskeletal: reports: Neck pain Neurologic: reports: Headache. 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, 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 - Present Medications Home Medications: Ambulatory Orders Medication Instructions Recorded Confirmed Alprazolam [Xanax] 0.5 mg PO Q8H PRN #7 tablet 05/09/19 Amoxicillin 875 mg PO BID #14 tablet 05/13/19 - Allergies Allergies/Adverse Reactions: Allergies Allergy/AdvReac Type Severity Reaction Status Date / Time No Known Drug Allergies Allergy Verified 05/17/19 23:06 - Social History Does the pt smoke?: No Smoking Status: Never smoker Does the pt drink ETOH?: Yes Does the pt have substance abuse?: Yes - Immunizations Immunizations are current?: No Immunizations: TDAP >10years/unknown - POLST Patient has POLST: No PD ED PE NORMAL - Vitals Vital signs reviewed: Yes - General General: Alert and oriented X 3, No acute distress, Well developed/nourished - HEENT HEENT: PERRL, EOMI, Moist mucous membranes - Neck Neck: Supple, no meningeal sign - Cardiac Cardiac: RRR, No murmur - Respiratory Respiratory: No respiratory distress, Clear bilaterally - Abdomen Abdomen: Normal bowel sounds, Soft, Non tender - Extremities Extremities: No edema - Neuro Neuro: Alert and oriented X 3, embedded processor 2-12 intact, No motor deficit, No sensory deficit, Normal speech Eye Opening: Spontaneous Motor: Obeys Commands Verbal: Oriented GCS Score: 15 Results - Vitals Vitals: Vital Signs - 24 hr 05/18/19 01:36 Heart Rate 65 Respiratory 16 Rate Blood Pressure 107/61 O2 Saturation 100 Oxygen O2 Source Room air PD MEDICAL DECISION MAKING - ED course Complexity details: reviewed results, re-evaluated patient, considered differential, d/w patient Departure - Departure Disposition: 01 Home, Self Care Clinical Impression: Headache Qualifiers: Headache type: unspecified Headache chronicity pattern: episodic headache Intractability: not intractable Qualified Code(s): R51 - Headache Condition: Good Instructions: ED Cephalgia Unspecified, ED Neuralgia Trigeminal Discharge Date/Time: 05/18/19 02:01
--- NOTE | 2019-05-18 00:44 | CT Report ---
Reason: headache Procedure Date: 05/18/2019 Accession Number: [id number] / [id number] Procedure: CT - HEAD WO CPT Code: FULL RESULT: EXAM: CT HEAD EXAM DATE: 05/18/2019 12:31 AM. CLINICAL HISTORY: Headache. COMPARISON: None. TECHNIQUE: Multiaxial CT images were obtained from the foramen magnum to the vertex. Reformats: Sagittal and coronal. IV contrast: None. In accordance with CT protocol optimization, one or more of the following dose reduction techniques were utilized for this exam: automated exposure control, adjustment of mA and/or KV based on patient size, or use of iterative reconstructive technique. FINDINGS: Parenchyma: No intraparenchymal hemorrhage. No evidence of mass, midline shift, or CT findings of infarction. Humphrey-white differentiation is distinct. Extraaxial Spaces: Normal for age. No subdural or epidural collections identified. Ventricles: Normal in size and position. Sinuses and Orbits: Small retention cyst in the left maxillary sinus. Bones: No evidence of fracture or calvarial defect. Other: None. IMPRESSION: 1. No acute intracranial abnormality. RADIA
[2019-05-18 01:36] VITALS: BP 107/61
== END 2019-05-18 02:01 | disposition home or self-care (01) ==
LOC: ED 22:49
DX: R51 Headache (principal)
CPT/HCPCS: 70450; 99282; 99284

== ENCOUNTER 2019-06-07 20:57 | Emergency (ER) | payer OTHER ==
--- NOTE | 2019-06-07 21:12 | ED Physician Documentation ---
PD HPI CHEST PAIN - Stated complaint Stated Complaint: CP/ANXIOUS - Chief complaint Chief Complaint: Cardiac - History obtained from History obtained from: Patient - History of Present Illness Timing - onset: Today ("few hours ago" (per patient)) Timing - onset during: Rest Timing - details: Abrupt onset Pain level max: 8 Pain level now: 0 Quality: Pain Location: Left chest Radiation: Other (does not radiate) Improved by: Nothing Worsened by: Other (no exacerbating factors) Associated symptoms: No: Shortness of air, Diaphoresis, Nausea, Vomiting, F eeling faint / dizzy, General Weakness, Palpitations, Cough Similar symptoms before: Has not had sx before Recently seen: Emergency Dept - Additional information Additional information: 15th [facility] ED visit over past 12 months Review of Systems Constitutional: denies: Fever, Chills, Sweats Cardiac: reports: Chest pain / pressure. 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 - Present Medications Home Medications: Ambulatory Orders Medication Instructions Recorded Confirmed Alprazolam [Xanax] 0.5 mg PO Q8H PRN #7 tablet 05/09/19 Amoxicillin 875 mg PO BID #14 tablet 05/13/19 - Allergies Allergies/Adverse Reactions: Allergies Allergy/AdvReac Type Severity Reaction Status Date / Time No Known Drug Allergies Allergy Verified 06/07/19 21:04 - Social History Does the pt smoke?: No Smoking Status: Never smoker Does the pt drink ETOH?: Yes Does the pt have substance abuse?: Yes - Immunizations Immunizations are current?: No Immunizations: TDAP >10years/unknown - POLST Patient has POLST: No PD ED PE NORMAL - Vitals Vital signs reviewed: Yes - General General: Alert and oriented X 3, No acute distress, Well developed/nourished - Neck Neck: Supple, no meningeal sign - Cardiac Cardiac: RRR, No murmur, No gallop, No rub - Respiratory Respiratory: No respiratory distress, Clear bilaterally - Abdomen Abdomen: Soft, Non tender - Derm Derm: Normal color, Warm and dry - Extremities Extremities: No edema Results - Vitals Vitals: Vital Signs - 24 hr 06/07/19 06/07/19 06/07/19 21:01 21:08 22:00 Temperature 36.4 C L Heart Rate 78 75 64 Respiratory 16 25 H 14 Rate Blood Pressure 128/75 128/75 108/68 Blood Pressure 128/75 [Left] O2 Saturation 99 99 97 06/07/19 06/07/19 22:38 22:40 Temperature 36.9 C Heart Rate 68 69 Respiratory 17 16 Rate Blood Pressure 108/73 108/73 Blood Pressure [Left] O2 Saturation 99 100 Oxygen O2 Source Room air - EKG (time done) No standard instances Rate: Rate (enter#) (78) Rhythm: NSR [place]: Normal Intervals: Normal IA QRS: Normal Ischemia: Normal ST segments - Labs Labs: Laboratory Tests 06/07/19 06/07/19 21:03 21:03 WBC 9.8 RBC 4.56 Hgb 13.2 Hct 40.2 MCV 88.2 MCH 28.9 MCHC 32.8 RDW 12.2 Plt Count 273 MPV 10.7 Neut # (Auto) 4.9 Lymph # (Auto) 3.5 [place] # (Auto) 1.0 Eos # (Auto) 0.3 Baso # (Auto) 0.1 Absolute Nucleated RBC 0.00 Nucleated RBC % 0.0 Sodium 139 Potassium 3.7 Chloride 104 Carbon Dioxide 27 Anion Gap 8.0 BUN 18 Creatinine 0.7 Estimated GFR (MDRD) 96 Glucose 104 H Calcium 9.5 Total Bilirubin 0.4 AST 19 ALT 12 Alkaline Phosphatase 41 L Total Protein 8.3 H Albumin 4.5 Globulin 3.8 Albumin/Globulin Ratio 1.2 Lipase 34 - Rads (name of study) chest xray Radiology: Prelim report reviewed, See rad report PD MEDICAL DECISION MAKING - ED course Complexity details: reviewed old records, reviewed results, re-evaluated patient, considered differential, d/w patient Departure - Departure Disposition: 01 Home, Self Care Clinical Impression: Chest pain Condition: Good Instructions: ED Chest Pain Atypical Unkn Cause Follow-Up: Karri Miramontes ARNP [Primary Care Provider] - Within 1 week () Discharge Date/Time: 06/07/19 22:43
[2019-06-07 21:34] LABS: BASOPHILS # (AUTO) 0.1 10^3/uL (0.0-0.1); BASOPHILS % (AUTO) 0.7 %; EOSINOPHILS # (AUTO) 0.3 10^3/uL (0.0-0.7); EOSINOPHILS % (AUTO) 3.3 %; HGB - HEMOGLOBIN 13.2 g/dL (12.0-16.0); LYMPHOCYTES # (AUTO) 3.5 10^3/uL (1.5-3.5); LYMPHOCYTES % (AUTO) 36.1 %; MEAN CORPUSCULAR HEMOGLOBIN 28.9 pg (27.0-31.0); MEAN CORPUSCULAR HGB CONC 32.8 g/dL (32.0-36.0); MEAN CORPUSCULAR VOLUME 88.2 fL (81.0-99.0); MEAN PLATELET VOLUME 10.7 fL (7.9-10.8); MONOCYTES % (AUTO) 9.8 %; NEUTROPHILS # (AUTO) 4.9 10^3/uL (1.5-6.6); PLT - PLATELET COUNT 273 10^3/uL (130-450); RED BLOOD COUNT 4.56 10^6/uL (4.20-5.40); RED CELL DISTRIBUTION WIDTH 12.2 % (12.0-15.0); WHITE BLOOD COUNT 9.8 x10^3/uL (4.8-10.8)
[2019-06-07 21:48] LABS: ALBUMIN 4.5 g/dL (3.2-5.5); ALBUMIN/GLOBULIN RATIO 1.2 (1.0-2.2); BILIRUBIN,TOTAL 0.4 mg/dL (0.2-1.0); CALCIUM 9.5 mg/dL (8.5-10.3); CREATININE 0.7 mg/dL (0.4-1.0); TOTAL PROTEIN 8.3 g/dL (6.7-8.2)
--- NOTE | 2019-06-07 22:12 | XRAY Report ---
Reason: chest pain Procedure Date: 06/07/2019 Accession Number: [id number] / [id number] Procedure: XR - Chest 2 View X-Ray CPT Code: 78848 FULL RESULT: EXAM: CHEST RADIOGRAPHY EXAM DATE: 06/07/2019 09:54 PM. CLINICAL HISTORY: Chest pain. COMPARISON: CHEST 2 VIEW 11/19/2018 5:45 PM. TECHNIQUE: 2 views. FINDINGS: Lungs/Pleura: No focal opacities evident. No pleural effusion. No pneumothorax. Normal volumes. Mediastinum: Heart and mediastinal contours are unremarkable. Other: None. IMPRESSION: Normal 2-view chest radiography. RADIA
[2019-06-07 22:38] VITALS: BP 108/73
== END 2019-06-07 22:43 | disposition home or self-care (01) ==
LOC: ED 20:57
DX: R07.9 Chest pain, unspecified (principal)
CPT/HCPCS: 36415; 71046; 80053; 83690; 85025; 93005; 99284

== ENCOUNTER 2019-06-13 05:05 | Emergency (ER) | payer OTHER ==
--- NOTE | 2019-06-13 05:08 | ED Physician Documentation ---
PD HPI URI - Stated complaint Stated Complaint: SOA,SORE THROAT - History obtained from History obtained from: Patient - History of Present Illness Timing - onset: How many days ago (few) Timing duration: Days (few) Timing details: Gradual onset, Still present Associated symptoms: Nasal congestion, Sore throat, Dry cough. No: Fever, Chills, Chest pain, NVD Contributing factors: Sick contact (her 2 sons with similar symptoms for several days are getting better on their own.). No: Immunocompromised, COPD / asthma Similar symptoms before: Has not had sx before Recently seen: Not recently seen Review of Systems Constitutional: reports: Myalgias. 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, 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 - Present Medications Home Medications: Ambulatory Orders Medication Instructions Recorded Confirmed Albuterol Sulf [Ventolin Hfa 1 - 2 puffs INH Q4HR PRN #1 inhaler 06/13/19 Inhaler] Cetirizine [ZyrTEC] 10 mg PO DAILY #10 tablet 06/13/19 dexAMETHasone [Decadron] 4 mg PO DAILY #5 tablet 06/13/19 - Allergies Allergies/Adverse Reactions: Allergies Allergy/AdvReac Type Severity Reaction Status Date / Time No Known Drug Allergies Allergy Verified 06/13/19 05:11 - Social History Does the pt smoke?: No Smoking Status: Never smoker Does the pt drink ETOH?: Yes Does the pt have substance abuse?: Yes - Immunizations Immunizations are current?: No Immunizations: TDAP >10years/unknown - POLST Patient has POLST: No PD ED PE NORMAL - Vitals Vital signs reviewed: Yes - General General: Alert and oriented X 3, No acute distress, Well developed/nourished - HEENT HEENT: Ears normal, Pharynx benign - Neck Neck: Supple, no meningeal sign, No adenopathy - Cardiac Cardiac: RRR, No murmur - Respiratory Respiratory: Clear bilaterally (with just scattered mild wheeze in apices. ) - Derm Derm: Normal color, Warm and dry - Neuro Neuro: Alert and oriented X 3, No motor deficit, Normal speech (with slightly raspy voice. ) Results - Vitals Vitals: Vital Signs - 24 hr 06/13/19 05:08 Temperature 36.9 C Heart Rate 87 Respiratory 18 Rate Blood Pressure 116/74 O2 Saturation 98 Oxygen O2 Source Room air PD MEDICAL DECISION MAKING - ED course Complexity details: considered differential, d/w patient Departure - Departure Disposition: Home, Self Care Clinical Impression: Upper respiratory infection Qualifiers: URI type: unspecified URI Qualified Code(s): J06.9 - Acute upper respiratory infection, unspecified Condition: Stable Record reviewed to determine appropriate education?: Yes Instructions: ED Upper Resp Infec No Abx Tx Follow-Up: Karri Miramontes ARNP [Primary Care Provider] - Prescriptions: Albuterol Sulf [Ventolin Hfa Inhaler] 1 - 2 puffs INH Q4HR PRN #1 inhaler PRN Reason: Shortness Of Air/Wheezing Cetirizine [ZyrTEC] 10 mg PO DAILY #10 tablet dexAMETHasone [Decadron] 4 mg PO DAILY #5 tablet Comments: Stay well-hydrated. Naproxen or ibuprofen as needed for pains. Add Tylenol if needed. Albuterol inhaler 2 puffs 4 times a day to help and improve breathing. Decadron daily for 5 more days to reduce inflammation and therefore reduce symptoms. Cetirizine antihistamine to reduce cough and congestion. 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
[2019-06-13 05:11] VITALS: BP 116/74
[2019-06-13] MEDS ORDERED: CHERRY SYRUP 10 ML UDC PO ONE (05:28)
[2019-06-13] MEDS ORDERED: CETIRIZINE 10 MG TABLET PO STA (05:28)
[2019-06-13] MEDS ORDERED: NAPROXEN 250 MG TABLET PO STA (05:28)
[2019-06-13] MEDS ORDERED: DEXAMETHASONE 10 MG/ML VIAL PO STA (05:28)
== END 2019-06-13 05:45 | disposition home or self-care (01) ==
LOC: ED 05:05
DX: J06.9 Acute upper respiratory infection, unspecified (principal)
CPT/HCPCS: 99283; A9270

== ENCOUNTER 2019-06-19 20:40 | Emergency (ER) | payer OTHER ==
--- NOTE | 2019-06-19 21:03 | ED Physician Documentation ---
PD HPI HEADACHE - Stated complaint Stated Complaint: HEADACHE/ANXIETY - Chief complaint Chief Complaint: Neuro - History obtained from History obtained from: Patient - History of Present Illness Timing - onset: Today Timing - onset during: Other (Standing in line at [employer]) Timing - duration: Minutes Timing - details: Abrupt onset Pain level now: 0 Quality: Stabbing Associated symptoms: No: Fever, Nausea, Vomiting, Weakness, Numbness, Syncope, Seizure Recently seen: Emergency Dept - Additional information Additional information: This is a 33-year-old woman who presents with HER-2 children for her seventh visit to the emergency department since the beginning of April. She is here today because she felt like there were "ice picks" stabbing her in the head while she was waiting in line at [employer] they get her children food. It was kind of moving around all of her head. She felt like this anxiety wave come over her and it was very scary. She did not feel nauseous but her stomach felt very tight so she bundled the kids into the car and drove herself here. She has been prescribed anxiety medications in the past but does not like to take them unless she is feeling extremely anxious. She has them in her drawer at home. She denies any vomiting says that she is not because she had a tubal ligation. She recently had a chest cold but denies any current coughing. She recently had a right mandibular tooth extracted. Denies dysuria. She has an appointment scheduled next week with her primary care provider but she had to wait for a month to get that appointment. 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 Review of Systems Constitutional: denies: Fever Throat: reports: Other (Recent tooth extraction). denies: Oral lesions / sores Respiratory: denies: Cough GI: reports: Nausea. denies: Vomiting : denies: Dysuria, Now EGA Musculoskeletal: reports: Neck pain Neurologic: reports: Headache. 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 - Present Medications Home Medications: Ambulatory Orders Medication Instructions Recorded Confirmed Albuterol Sulf [Ventolin Hfa 1 - 2 puffs INH Q4HR PRN #1 inhaler 06/13/19 Inhaler] Cetirizine [ZyrTEC] 10 mg PO DAILY #10 tablet 06/13/19 dexAMETHasone [Decadron] 4 mg PO DAILY #5 tablet 06/13/19 - Allergies Allergies/Adverse Reactions: Allergies Allergy/AdvReac Type Severity Reaction Status Date / Time No Known Drug Allergies Allergy Verified 06/19/19 20:47 - Social History Does the pt smoke?: No Smoking Status: Never smoker Does the pt drink ETOH?: Yes Does the pt have substance abuse?: Yes - Immunizations Immunizations are current?: No Immunizations: TDAP >10years/unknown - POLST Patient has POLST: No PD ED PE NORMAL - Vitals Vital signs reviewed: Yes - General General: Alert and oriented X 3, No acute distress, Well developed/nourished - HEENT HEENT: Atraumatic, PERRL, EOMI, Moist mucous membranes, Pharynx benign, Dentition benign, Other (The socket for the extracted tooth is clean without any debris in it and no inflammation surrounding it.) - Neck Neck: Thyroid normal, Other (There is a smaller than pea-sized occipital lymph node on the right side that is not tender. 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 In fact she just recently had a head CT done that was negative. She is encouraged to consider counseling for her anxiety and stress and make sure that she keeps the appointment with her primary care provider next week. Departure - Departure Disposition: 01 Home, Self Care Clinical Impression: Anxiety Instructions: ED Stress React Follow-Up: Karri Miramontes ARNP [Primary Care Provider] - Comments: Keep the appointment you have scheduled next week with your primary care provider. I would suggest that you talk with them about potential for aAnxiety medication that you can take on a daily basis to help control your symptoms long-term. Consider counseling.
[2019-06-19 21:27] VITALS: BP 110/70
== END 2019-06-19 21:26 | disposition home or self-care (01) ==
LOC: ED 20:40
DX: F41.9 Anxiety disorder, unspecified (principal); F43.9 Reaction to severe stress, unspecified; Z98.818 Other dental procedure status
CPT/HCPCS: 99281; 99284

== ENCOUNTER 2019-06-28 18:04 | Emergency (ER) | payer OTHER ==
[2019-06-28 18:13] VITALS: BP 122/75
--- NOTE | 2019-06-28 18:51 | ED Physician Documentation ---
PD HPI FOCAL NEURO - Stated complaint Stated Complaint: RT SIDED HEAD PAIN - Chief complaint Chief Complaint: Neuro - History obtained from History obtained from: Patient - History of Present Illness Timing - onset: Other (Last month she has had a right temporal headache. She had a normal head CT. Now 4 weeks at times she has a shocklike pain over the right side of the forehead radiating to the ear. 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 No fevers.) Review of Systems Constitutional: denies: Fever, Chills Cardiac: reports: Reviewed and negative Respiratory: reports: Reviewed and negative PD PAST MEDICAL HISTORY - Past Medical History Cardiovascular: None Respiratory: None Neuro: None Endocrine/Autoimmune: None GI: GERD, Other REGISTERED NURSE BEHAVIORAL HEALTH: None : Kidney stones HEENT: None Psych: None Musculoskeletal: None Derm: None - Past Surgical History Past Surgical History: Yes /REGISTERED NURSE BEHAVIORAL HEALTH: section, 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 - Present Medications Home Medications: Ambulatory Orders Medication Instructions Recorded Confirmed Albuterol Sulf [Ventolin Hfa 1 - 2 puffs INH Q4HR PRN #1 inhaler 06/13/19 Inhaler] Cetirizine [ZyrTEC] 10 mg PO DAILY #10 tablet 06/13/19 dexAMETHasone [Decadron] 4 mg PO DAILY #5 tablet 06/13/19 Carbamazepine 200 mg PO BID #40 tablet 06/28/19 - Allergies Allergies/Adverse Reactions: Allergies Allergy/AdvReac Type Severity Reaction Status Date / Time No Known Drug Allergies Allergy Verified 06/28/19 18:08 - Social History Does the pt smoke?: No Smoking Status: Never smoker Does the pt drink ETOH?: Yes Does the pt have substance abuse?: Yes - Immunizations Immunizations are current?: No Immunizations: TDAP >10years/unknown - POLST Patient has POLST: No PD ED PE NORMAL - Vitals Vital signs reviewed: Yes - General General: Alert and oriented X 3, No acute distress - HEENT HEENT: PERRL, EOMI, Ears normal, Pharynx benign, Dentition benign - Neck Neck: Supple, no meningeal sign, No bony TTP - Neuro Neuro: Alert and oriented X 3, toaster operator 2-12 intact, No motor deficit, No sensory deficit, Normal speech - Psych Psych: Normal mood, Normal affect Results - Vitals Vitals: Vital Signs - 24 hr 06/28/19 18:08 Temperature 36.6 C Heart Rate 72 Respiratory 16 Rate Blood Pressure 122/75 O2 Saturation 100 Oxygen O2 Source Room air PD MEDICAL DECISION MAKING - ED course ED course: This is a young lady who has symptoms consistent with trigeminal neuralgia. No physical findings here. She has had thorough work-ups in the past looking at her chart. We will trial a course of carbamazepine. She has a follow-up appointment with her physician on Monday. Departure - Departure Disposition: Home, Self Care Clinical Impression: Trigeminal neuralgia of right side of face Condition: Good Record reviewed to determine appropriate education?: Yes Instructions: ED Neuralgia Trigeminal Prescriptions: Carbamazepine 200 mg PO BID #40 tablet Comments: FOLLOWUP WITH YOUR DOCTOR ON MONDAY SCHEDULED, TAKE THE PILL BOTTLE WITH YOU AND REPORT TO DR SCHILLING WHETHER OR NOT IT IS WORKING. RETURN IF WORSE.
== END 2019-06-28 18:57 | disposition home or self-care (01) ==
LOC: ED 18:04
DX: G50.0 Trigeminal neuralgia (principal); H90.42 Sensorineural hearing loss, unilateral, left ear, with unrestricted hearing on the contralateral side
CPT/HCPCS: 99282; 99283

== ENCOUNTER 2019-11-06 10:19 | Emergency (ER) | payer OTHER ==
[2019-11-06 10:37] VITALS: BP 135/87
[2019-11-06 10:49] LABS: BILIRUBIN,URINE NEGATIVE (NEGATIVE); GLUCOSE, URINE (UA) NEGATIVE (NEGATIVE); KETONES,URINE (UA) TRACE mg/dL (NEGATIVE); LEUKOCYTE ESTERASE, URINE NEGATIVE (NEGATIVE); NITRITE,URINE POSITIVE (NEGATIVE); OCCULT BLOOD,URINE NEGATIVE (NEGATIVE); PROTEIN,URINE NEGATIVE (NEGATIVE); UROBILINOGEN,URINE 0.2 (NORMAL) E.U./dL (NORMAL)
[2019-11-06 10:52] LABS: CLARITY,URINE CLEAR (CLEAR); HCG UR QUAL NEGATIVE
[2019-11-06 10:56] LABS: BASOPHILS % (AUTO) 0.6 %; EOSINOPHILS # (AUTO) 0.1 10^3/uL (0.0-0.7); HGB - HEMOGLOBIN 12.8 g/dL (12.0-16.0); LYMPHOCYTES % (AUTO) 29.1 %; MEAN CORPUSCULAR HEMOGLOBIN 29.6 pg (27.0-31.0); MEAN CORPUSCULAR HGB CONC 33.7 g/dL (32.0-36.0); MEAN PLATELET VOLUME 9.9 fL (7.9-10.8); MONOCYTES # (AUTO) 0.6 10^3/uL (0.0-1.0); MONOCYTES % (AUTO) 8.2 %; NEUTROPHILS # (AUTO) 4.1 10^3/uL (1.5-6.6); NEUTROPHILS % (AUTO) 60.8 %; PLT - PLATELET COUNT 222 10^3/uL (130-450); RED BLOOD COUNT 4.32 10^6/uL (4.20-5.40); RED CELL DISTRIBUTION WIDTH 12.2 % (12.0-15.0); WHITE BLOOD COUNT 6.7 x10^3/uL (4.8-10.8)
[2019-11-06 11:05] LABS: BACTERIA,URINE Many /HPF (None Seen); RBC,URINE 0-5 /HPF (0-5); SQUAMOUS EPITHELIAL CELL,UR MANY Squamous (<= Few)
[2019-11-06 11:07] LABS: ALBUMIN 4.2 g/dL (3.2-5.5); ALBUMIN/GLOBULIN RATIO 1.1 (1.0-2.2); BILIRUBIN,TOTAL 0.6 mg/dL (0.2-1.0); CALCIUM 9.1 mg/dL (8.5-10.3); CREATININE 0.7 mg/dL (0.4-1.0)
[2019-11-06] MEDS ORDERED: KETOROLAC 30 MG/ML VIAL IVP STA (11:09)
[2019-11-06] MEDS ORDERED: SODIUM CHLORIDE 0.9% 1,000 ML IV ONE (11:09)
--- NOTE | 2019-11-06 11:12 | ED Physician Documentation ---
PD HPI ABD PAIN - Stated complaint Stated Complaint: ABDOMINAL PX - Chief complaint Chief Complaint: Abd Pain - History obtained from History obtained from: Patient - History of Present Illness Timing - onset: How many days ago (5) Timing - duration: Days (5) Timing - details: Abrupt onset, Still present Quality: Sharp, Pain Location: RUQ Radiation: Right flank Improved by: Laying still Worsened by: Palpation Associated symptoms: Nausea. No: Vomiting Similar symptoms before: Diagnosis (kidney stone) Recently seen: Clinic - Additional information Additional information: 33-year-old female is developed some vague abdominal pain in the right upper quadrant which has persisted and worsened she states that it feels like it is in her right kidney and she had sharp pain that kept her awake all night last night. She is very vague on her history. She has not had any vomiting she did have some nausea she was given some nausea medicine by her doctor yesterday. Review of Systems Constitutional: denies: Fever, Chills, Myalgias Eyes: denies: Decreased vision Ears: denies: Ear pain Nose: denies: Rhinorrhea / runny nose, Congestion Throat: denies: Sore throat Cardiac: denies: Chest pain / pressure Respiratory: denies: Dyspnea, Cough GI: reports: Abdominal Pain, Nausea. denies: Vomiting, Constipation, Diarrhea : denies: Dysuria, Frequency Skin: denies: Rash Musculoskeletal: reports: Back pain. 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: section, 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 - Present Medications Home Medications: Ambulatory Orders Medication Instructions Recorded Confirmed Albuterol Sulf [Ventolin Hfa 1 - 2 puffs INH Q4HR PRN #1 inhaler 06/13/19 Inhaler] Cetirizine [ZyrTEC] 10 mg PO DAILY #10 tablet 06/13/19 dexAMETHasone [Decadron] 4 mg PO DAILY #5 tablet 06/13/19 Carbamazepine 200 mg PO BID #40 tablet 06/28/19 - Allergies Allergies/Adverse Reactions: Allergies Allergy/AdvReac Type Severity Reaction Status Date / Time No Known Drug Allergies Allergy Verified 11/06/19 10:37 - Social History Does the pt smoke?: No Smoking Status: Never smoker Does the pt drink ETOH?: Yes Does the pt have substance abuse?: Yes - Immunizations Immunizations are current?: No Immunizations: TDAP >10years/unknown - POLST Patient has POLST: No PD ED PE NORMAL - Vitals Vital signs reviewed: Yes (hypertensive mild ) - General General: Alert and oriented X 3, No acute distress, Well developed/nourished - HEENT HEENT: Atraumatic, PERRL, EOMI - Neck Neck: Supple, no meningeal sign, No bony TTP - Cardiac Cardiac: RRR, No murmur - Respiratory Respiratory: No respiratory distress, Clear bilaterally - Abdomen Abdomen: Soft, Other (mild RUQ tenderness without garding and without arrest of respiration. ) - Back Back: No CVA TTP, No spinal TTP - Derm Derm: Normal color, Warm and dry, No rash - Extremities Extremities: No deformity, No edema, No calf tenderness / cord - Neuro Neuro: Alert and oriented X 3, electronics scale tester 2-12 intact, No motor deficit, No sensory deficit, Normal speech Eye Opening: Spontaneous Motor: Obeys Commands Verbal: Oriented GCS Score: 15 - Psych Psych: Normal mood, Normal affect Results - Vitals Vitals: Vital Signs - 24 hr 11/06/19 10:25 Temperature 36.7 C Heart Rate 67 Respiratory 17 Rate Blood Pressure 135/87 H O2 Saturation 100 Oxygen O2 Source Room air - Labs Labs: Laboratory Tests 11/06/19 11/06/19 11/06/19 10:49 10:49 Unknown WBC 6.7 RBC 4.32 Hgb 12.8 Hct 38.0 MCV 88.0 MCH 29.6 MCHC 33.7 RDW 12.2 Plt Count 222 MPV 9.9 Neut # (Auto) 4.1 Lymph # (Auto) 2.0 [place] # (Auto) 0.6 Eos # (Auto) 0.1 Baso # (Auto) 0.0 Absolute Nucleated RBC 0.00 Nucleated RBC % 0.0 Sodium 139 Potassium 3.5 Chloride 103 Carbon Dioxide 24 Anion Gap 12.0 BUN 11 Creatinine 0.7 Estimated GFR (MDRD) 96 Glucose 85 Calcium 9.1 Total Bilirubin 0.6 AST 18 ALT 12 Alkaline Phosphatase 40 L Total Protein 8.0 Albumin 4.2 Globulin 3.8 Albumin/Globulin Ratio 1.1 Lipase 27 Urine Color YELLOW Urine Clarity CLEAR Urine pH 6.0 Ur Specific [place] >=1.030 H Urine Protein NEGATIVE Urine Glucose (UA) NEGATIVE Urine Ketones TRACE Urine Occult Blood NEGATIVE Urine Nitrite POSITIVE H Urine Bilirubin NEGATIVE Urine Urobilinogen 0.2 (NORMAL) Ur Leukocyte Esterase NEGATIVE Urine RBC 0-5 Urine WBC 0-3 Ur Squamous Epith Cells MANY Squamous H Urine Bacteria Many H Ur Microscopic Review INDICATED Urine Culture Comments NOT INDICATED Urine HCG, Qual NEGATIVE - Rads (name of study) CT ab/pel w/o Radiology: Prelim report reviewed (Impression: Bilateral nonobstructing nephroliths. No ureteral calculi. No hydronephrosis or hydroureter. No bowel obstruction, or evidence of appendicitis. No cystic or mass lesion in either adnexa.), EMP read indepedently, See rad report Procedures - Bedside sono Bedside sono by EMP: With the use of bedside ultrasound the right upper quadrant is imaged and the gallbladder appears without obvious stone there is no gallbladder wall thickening or pericholecystic fluid the area in general is mildly tender. The right kidney is sonographically nontender and does demonstrate evidence of hydronephrosis. PD MEDICAL DECISION MAKING - ED course Complexity details: reviewed results, re-evaluated patient, considered differential, d/w patient ED course: 33-year-old female with right upper quadrant abdominal pain has no evidence of urinary pathology no evidence of stone passing at this time. She does have stones in both kidney. Her gallbladder does not appear inflamed or abnormal in any way on bedside exam. Departure - Departure Disposition: 01 Home, Self Care Clinical Impression: Flank pain Condition: Stable Instructions: ED Flank Pain Uncertain Cause Follow-Up: Karri Miramontes ARNP [Primary Care Provider] -
--- NOTE | 2019-11-06 12:07 | CT Report ---
Reason: flank pain, kidney stone suspected Procedure Date: 11/06/2019 Accession Number: [id number] / [id number] Procedure: CT - Abdomen/Pelvis WO CPT Code: Final Report FULL RESULT: EXAM: CT ABDOMEN AND PELVIS (CT KUB) EXAM DATE: 11/06/2019 11:35 AM. CLINICAL HISTORY: Flank pain, kidney stone suspected. COMPARISONS: ABDOMEN/PELVIS W/ 08/10/2018 3:06 PM. TECHNIQUE: Routine axial helical CT imaging was performed through the abdomen and pelvis without IV contrast. Reconstructions: Coronal and sagittal. In accordance with CT protocol optimization, one or more of the following dose reduction techniques were utilized for this exam: automated exposure control, adjustment of mA and/or KV based on patient size, or use of iterative reconstructive technique. FINDINGS: Lung Bases: Unremarkable. Right Kidney/Ureter: No hydronephrosis. Nonobstructing 4 mm calculus at the lower pole of the right kidney. No right ureteral dilatation or ureteral stones. Left Kidney/Ureter: No hydronephrosis. 2 mm mid pole calculus, and 5 mm lower pole nonobstructing calculus. No left ureteral calculi or ureteral dilatation. No urinary bladder stones identified. Other Solid Organs: Noncontrast images of the solid organs are grossly unremarkable. Gallbladder/Bile Ducts: Unremarkable. Peritoneal Cavity: No free fluid, free air or maday adenopathy. Bowel is grossly unremarkable. Pelvic Organs: No bladder stones or wall thickening. Noncontrast images of the visualized pelvic organs are unremarkable. Vasculature: Unremarkable. Other: None. IMPRESSION: Bilateral nonobstructing nephroliths. No ureteral calculi. No hydronephrosis or hydroureter. No bowel obstruction or evidence of appendicitis. No cystic or mass lesions in either adnexa. RADIA
== END 2019-11-06 12:57 | disposition home or self-care (01) ==
LOC: ED 10:19
DX: R10.11 Right upper quadrant pain (principal); R11.0 Nausea; N20.0 Calculus of kidney
CPT/HCPCS: 36415; 74176; 80053; 81001; 81003; 81025; 83690; 85025; 87086; 96361; 96374; 99284

== ENCOUNTER 2019-12-09 13:45 | Emergency (ER) | payer OTHER ==
[2019-12-09 13:55] VITALS: BP 121/74
--- NOTE | 2019-12-09 14:12 | ED Physician Documentation ---
PD HPI DYSPNEA - Stated complaint Stated Complaint: SOB - Chief complaint Chief Complaint: Resp - History obtained from History obtained from: Patient - History of Present Illness Timing - onset: Other (She is had about 3 days of minimally productive cough (in contrast to the nurses notes, she tells me she does have a cough). It is associated with mild shortness of breath and some rib tightness on both sides especially when coughing. She denies fevers. No pedal edema or calf pain. No recent travel or sick contacts.) Review of Systems Constitutional: denies: Fever, Chills Cardiac: denies: Chest pain / pressure, Palpitations, Pedal edema, Calf pain Respiratory: reports: Dyspnea, Cough. 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: section, 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 - Present Medications Home Medications: Ambulatory Orders Medication Instructions Recorded Confirmed Albuterol Sulf [Ventolin Hfa 1 - 2 puffs INH Q4HR PRN #1 inhaler 06/13/19 Inhaler] Cetirizine [ZyrTEC] 10 mg PO DAILY #10 tablet 06/13/19 dexAMETHasone [Decadron] 4 mg PO DAILY #5 tablet 06/13/19 Carbamazepine 200 mg PO BID #40 tablet 06/28/19 Albuterol Sulf [Ventolin Hfa 1 - 2 puffs INH Q4HR PRN #1 inhaler 12/09/19 Inhaler] Cetirizine HCl/Pseudoephedrine 1 each PO BID PRN #30 tab.er.12h 12/09/19 [Zyrtec-D Tablet] - Allergies Allergies/Adverse Reactions: Allergies Allergy/AdvReac Type Severity Reaction Status Date / Time No Known Drug Allergies Allergy Verified 12/09/19 13:51 - Social History Does the pt smoke?: No Smoking Status: Never smoker Does the pt drink ETOH?: Yes Does the pt have substance abuse?: Yes - Immunizations Immunizations are current?: No Immunizations: TDAP >10years/unknown - POLST Patient has POLST: No PD ED PE NORMAL - Vitals Vital signs reviewed: Yes - General General: Alert and oriented X 3, No acute distress - Neck Neck: Supple, no meningeal sign, No bony TTP - Cardiac Cardiac: RRR, No murmur - Respiratory Respiratory: No respiratory distress, Clear bilaterally - Abdomen Abdomen: Non tender - Back Back: No CVA TTP, No spinal TTP - Derm Derm: Normal color, Warm and dry - Extremities Extremities: No edema, No calf tenderness / cord - Neuro Neuro: Alert and oriented X 3, Normal speech Results - Vitals Vitals: Vital Signs - 24 hr 12/09/19 13:51 Temperature 36.8 C Heart Rate 66 Respiratory 16 Rate Blood Pressure 121/74 O2 Saturation 98 Oxygen O2 Source Room air PD MEDICAL DECISION MAKING - ED course ED course: 33-year-old woman with what seems like viral bronchitis. She was concerned about coronavirus, but she does not appear ill and has no fever. She does not fit current hospital guidelines for testing for that illness. Departure - Departure Disposition: 01 Home, Self Care Clinical Impression: Upper respiratory infection Qualifiers: URI type: unspecified viral URI Qualified Code(s): J06.9 - Acute upper respiratory infection, unspecified Condition: Good Record reviewed to determine appropriate education?: Yes Instructions: ED Viral Syndrome Prescriptions: Albuterol Sulf [Ventolin Hfa Inhaler] 1 - 2 puffs INH Q4HR PRN #1 inhaler PRN Reason: Shortness Of Air/Wheezing Cetirizine HCl/Pseudoephedrine [Zyrtec-D Tablet] 1 each PO BID PRN #30 tab.er.12h PRN Reason: Nasal Congestion Comments: Your chest x-ray is fine, No evidence of pneumonia or bronchitis, return for new or worsening symptoms and follow-up with your doctor in a week if not better.
[2019-12-09] MEDS ORDERED: BACITRACIN ZINC OINT 1 PACKET TOP STA (14:29)
--- NOTE | 2019-12-09 14:39 | XRAY Report ---
Reason: cough Procedure Date: 12/09/2019 Accession Number: [id number] / [id number] Procedure: XR - Chest 2 View X-Ray CPT Code: 63508 Final Report FULL RESULT: EXAM: CHEST RADIOGRAPHY EXAM DATE: 12/09/2019 02:29 PM. CLINICAL HISTORY: Cough. Cough for more than a week. COMPARISON: CHEST 2 VIEW 06/07/2019 9:41 PM. TECHNIQUE: 2 views. Bilateral nipple bars. FINDINGS: Lungs/Pleura: No focal opacities evident. No pleural effusion. No pneumothorax. Normal volumes. Mediastinum: Heart and mediastinal contours are unremarkable. Other: None. IMPRESSION: Normal 2-view chest radiography. RADIA
== END 2019-12-09 14:52 | disposition home or self-care (01) ==
LOC: ED 13:45
DX: J06.9 Acute upper respiratory infection, unspecified (principal)
CPT/HCPCS: 71046; 99283; 99284; A9270

== ENCOUNTER 2019-12-12 06:43 | Emergency (ER) | payer OTHER ==
[2019-12-12 06:56] VITALS: BP 123/62
--- NOTE | 2019-12-12 07:35 | ED Physician Documentation ---
History of Present Illness - Stated complaint Stated Complaint: N/V - Chief complaint Chief Complaint: Abd Pain - History obtained from History obtained from: Patient - History of Present Illness Timing: How many weeks ago (1) Pain level max: 3 Pain level now: 0 - Additonal information Additional information: 34-year-old female presents to the emergency department stating that she has had epigastric discomfort and nausea for the past week. History of H. pylori in the past. Has been treated and tested negative for this since. Dropped off a stool sample 3 days ago at the [facility], but does not have the results. No diarrhea. No fevers. No other abdominal pain. Worse with eating and drinking, better with rest. Patient denies any possibility of . History of tubal ligation. No recent travel. No recent antibiotics. Review of Systems Ten Systems: 10 systems reviewed and negative Constitutional: denies: Fever, Chills Nose: denies: Rhinorrhea / runny nose, Congestion Throat: denies: Sore throat Cardiac: denies: Chest pain / pressure Respiratory: denies: Cough GI: reports: Nausea. 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 12/12/19 Promethazine [Phenergan] 25 mg PO Q6H PRN #10 tab 12/12/19 - Allergies Allergies/Adverse Reactions: Allergies Allergy/AdvReac Type Severity Reaction Status Date / Time No Known Drug Allergies Allergy Verified 12/12/19 06:56 - Social History Does the pt smoke?: No Smoking Status: Never smoker Does the pt drink ETOH?: Yes Does the pt have substance abuse?: Yes - Immunizations Immunizations are current?: No Immunizations: TDAP >10years/unknown - POLST Patient has POLST: No PD ED PE NORMAL - Vitals Vital signs reviewed: Yes - General General: Alert and oriented X 3, No acute distress, Well developed/nourished - HEENT HEENT: Moist mucous membranes - Neck Neck: Supple, no meningeal sign - Cardiac Cardiac: RRR, Strong equal pulses - Respiratory Respiratory: No respiratory distress, Clear bilaterally - Abdomen Abdomen: Normal bowel sounds, Soft, Non tender, Non distended - Derm Derm: Warm and dry - Neuro Neuro: Alert and oriented X 3 - Psych Psych: Normal mood, Normal affect Results - Vitals Vitals: Vital Signs - 24 hr 12/12/19 06:50 Temperature 36.7 C Heart Rate 81 Respiratory 14 Rate Blood Pressure 123/62 O2 Saturation 97 Oxygen O2 Source Room air PD MEDICAL DECISION MAKING - ED course Complexity details: reviewed old records, considered differential, d/w patient ED course: 34-year-old female presents to the emergency department with epigastric discomfort, possible gastritis versus ulcer? She is already being tested for H. pylori with her doctor. She states the Zofran is not helping her nausea, therefore we will prescribe her Phenergan and add a PPI. We will hold antibiotics for the results of her test. Patient is well-appearing, nontoxic. Afebrile. Is not actually having vomiting, just nausea. We will hold lab testing at this time. Patient counseled regarding signs and symptoms for which I believe and urgent re-evaluation would be necessary. Patient with good understanding of and agreement to plan and is comfortable going home at this time This document was made in part using voice recognition software. While efforts are made to proofread this document, sound alike and grammatical errors may occur. Departure - Departure Disposition: 01 Home, Self Care Clinical Impression: Nausea, Epigastric abdominal pain Condition: Good Instructions: ED Abdominal Pain Unkn Cause Follow-Up: Karri Miramontes ARNP [Primary Care Provider] - Within 1 week Prescriptions: Esomeprazole Magnesium [Nexium] 20 mg PO DAILY #30 capsule. Promethazine [Phenergan] 25 mg PO Q6H PRN #10 tab PRN Reason: Nausea / Vomiting Comments: Use the medications as prescribed. Return if you worsen. Follow-up with your doctor for results of your H. [facility]
== END 2019-12-12 07:41 | disposition home or self-care (01) ==
LOC: ED 06:43
DX: R10.13 Epigastric pain (principal); R11.0 Nausea
CPT/HCPCS: 99282; 99284

== ENCOUNTER 2019-12-14 18:57 | Emergency (ER) | payer OTHER ==
[2019-12-14 19:09] VITALS: BP 128/92
--- NOTE | 2019-12-14 19:20 | ED Physician Documentation ---
History of Present Illness - Stated complaint Stated Complaint: SOB - Chief complaint Chief Complaint: Resp - History obtained from History obtained from: Patient (the patient is a 34 y/o f who was seen 2 days ago in the ed and had a neg cxr presents tonight with a cc of sob with a mild cough, denies fevers, mobley, neck pain, rashes, hemoptysis, chest pain, syncope, le swelling, hx of dvt/pe, mi. states she is very concerned that she feels like she is having trouble breathing.) Review of Systems Constitutional: reports: Reviewed and negative Eyes: reports: Reviewed and negative Ears: reports: Reviewed and negative Nose: reports: Reviewed and negative Throat: reports: Reviewed and negative Cardiac: reports: Reviewed and negative Respiratory: reports: Dyspnea GI: reports: Reviewed and negative : reports: Reviewed and negative Skin: reports: Reviewed and negative Musculoskeletal: reports: Reviewed and negative Neurologic: reports: Reviewed and negative Psychiatric: reports: Reviewed and negative Endocrine: reports: Reviewed and negative Immunocompromised: reports: Reviewed and negative PD PAST MEDICAL HISTORY - Past Medical History Cardiovascular: None Respiratory: None Neuro: None Endocrine/Autoimmune: None GI: GERD, Other RN CHEMICAL DEPENDENCY: None : Kidney stones HEENT: None Psych: None Musculoskeletal: None Derm: None - Past Surgical History Past Surgical History: Yes /RN CHEMICAL DEPENDENCY: section, 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 - Present Medications Home Medications: Ambulatory Orders Medication Instructions Recorded Confirmed Albuterol Sulf [Ventolin Hfa 1 - 2 puffs INH Q4HR PRN #1 inhaler 06/13/19 12/14/19 Inhaler] Ondansetron Odt [Zofran Odt] 4 mg PO Q8HR PRN 12/14/19 12/14/19 - Allergies Allergies/Adverse Reactions: Allergies Allergy/AdvReac Type Severity Reaction Status Date / Time No Known Drug Allergies Allergy Verified 12/14/19 19:09 - Social History Does the pt smoke?: No Smoking Status: Never smoker Does the pt drink ETOH?: Yes Does the pt have substance abuse?: Yes - Immunizations Immunizations are current?: No Immunizations: TDAP >10years/unknown - POLST Patient has POLST: No PD ED PE NORMAL - Vitals Vital signs reviewed: Yes - General General: Alert and oriented X 3, No acute distress, Well developed/nourished - HEENT HEENT: Atraumatic, PERRL, Pharynx benign - Neck Neck: Supple, no meningeal sign, No JVD, No bruit - Cardiac Cardiac: RRR, No murmur, No gallop, No rub, Strong equal pulses - Respiratory Respiratory: No respiratory distress, Clear bilaterally, Other (Breath sounds are clear bilaterally, no wheezes, rales or rhonchi. no use of accessory muscles. trachea midline. ) - Abdomen Abdomen: Normal bowel sounds, Soft, Non tender, Non distended, No organomegaly - Back Back: No CVA TTP, No spinal TTP - Derm Derm: Normal color, Warm and dry, No rash - Extremities Extremities: No deformity, No tenderness to palpate, Normal ROM s pain, No edema, No calf tenderness / cord - Neuro Neuro: Alert and oriented X 3, sales product specialist 2-12 intact, No motor deficit, No sensory deficit, Normal speech - Psych Psych: Normal mood, Normal affect Results - Vitals Vitals: Vital Signs - 24 hr 12/14/19 19:05 Temperature 37 C Heart Rate 82 Respiratory 16 Rate Blood Pressure 128/92 H O2 Saturation 100 Oxygen O2 Source Room air PD MEDICAL DECISION MAKING - ED course Complexity details: reviewed old records, reviewed results, re-evaluated patient, considered differential (patient has a negative PERC. she has no chest pain, she is describing a mild cough and sob, negative cxr 2 days ago, no family hx of sudden at a young age. no history of heart disease, had a previous tubal ligation. exam shows a healthy 34 y/o f, vitals are reassuring. ), d/w patient (i looked through previous visits and records, she has had a normal ekg recently, normal cxr, was seen a few months ago for abd pain and had a neg ct ap. she is well appearing on exam. i had an extensive discussion with the patient and reexamined her, her breath sounds are clear, no signs of resp distress, no accessory muscle use, cv shows rrr nml s1s2 no m/r/g. no leg swelling. will encourage close f/u w her pcp and should return for new or worsening symptoms or any concerns. ) Departure - Departure Disposition: 01 Home, Self Care Clinical Impression: Dyspnea Qualifiers: Dyspnea type: unspecified Qualified Code(s): R06.00 - Dyspnea, unspecified Condition: Stable Instructions: ED Viral Syndrome Follow-Up: Karri Miramontes ARNP [Primary Care Provider] - Within 1 week
== END 2019-12-14 20:08 | disposition home or self-care (01) ==
LOC: ED 18:57
DX: R06.00 Dyspnea, unspecified (principal)
CPT/HCPCS: 99282; 99284

== ENCOUNTER 2020-01-30 07:39 | Emergency (ER) | payer OTHER ==
[2020-01-30 08:27] LABS: BASOPHILS # (AUTO) 0.1 10^3/uL (0.0-0.1); BASOPHILS % (AUTO) 0.7 %; EOSINOPHILS # (AUTO) 0.2 10^3/uL (0.0-0.7); EOSINOPHILS % (AUTO) 3.1 %; HGB - HEMOGLOBIN 12.9 g/dL (12.0-16.0); LYMPHOCYTES # (AUTO) 2.1 10^3/uL (1.5-3.5); LYMPHOCYTES % (AUTO) 27.5 %; MEAN CORPUSCULAR HEMOGLOBIN 29.5 pg (27.0-31.0); MEAN CORPUSCULAR HGB CONC 33.2 g/dL (32.0-36.0); MEAN CORPUSCULAR VOLUME 88.8 fL (81.0-99.0); MEAN PLATELET VOLUME 10.2 fL (7.9-10.8); MONOCYTES # (AUTO) 0.7 10^3/uL (0.0-1.0); MONOCYTES % (AUTO) 8.9 %; NEUTROPHILS # (AUTO) 4.4 10^3/uL (1.5-6.6); NEUTROPHILS % (AUTO) 59.5 %; PLT - PLATELET COUNT 272 10^3/uL (130-450); RED BLOOD COUNT 4.37 10^6/uL (4.20-5.40); RED CELL DISTRIBUTION WIDTH 13.3 % (12.0-15.0); WHITE BLOOD COUNT 7.5 x10^3/uL (4.8-10.8)
[2020-01-30 08:33] LABS: BILIRUBIN,URINE NEGATIVE (NEGATIVE); CLARITY,URINE CLEAR (CLEAR); GLUCOSE, URINE (UA) NEGATIVE (NEGATIVE); KETONES,URINE (UA) NEGATIVE (NEGATIVE); LEUKOCYTE ESTERASE, URINE NEGATIVE (NEGATIVE); NITRITE,URINE NEGATIVE (NEGATIVE); OCCULT BLOOD,URINE NEGATIVE (NEGATIVE); PROTEIN,URINE NEGATIVE (NEGATIVE); UROBILINOGEN,URINE 0.2 (NORMAL) E.U./dL (NORMAL)
[2020-01-30 08:34] LABS: HCG UR QUAL NEGATIVE
[2020-01-30 08:41] LABS: ALBUMIN 4.1 g/dL (3.2-5.5); ALBUMIN/GLOBULIN RATIO 1.1 (1.0-2.2); BILIRUBIN,TOTAL 0.8 mg/dL (0.2-1.0); CALCIUM 9.1 mg/dL (8.5-10.3); CREATININE 0.7 mg/dL (0.4-1.0); TOTAL PROTEIN 7.7 g/dL (6.7-8.2)
[2020-01-30] MEDS ORDERED: KETOROLAC 30 MG/ML VIAL IVP STA (09:24)
[2020-01-30] MEDS ORDERED: SODIUM CHLORIDE 0.9% 1,000 ML IV ONE (09:24)
--- NOTE | 2020-01-30 09:26 | ED Physician Documentation ---
PD HPI ABD PAIN - Stated complaint Stated Complaint: ABD PX - Chief complaint Chief Complaint: Abd Pain - History obtained from History obtained from: Patient - History of Present Illness Timing - onset: How many weeks ago (1) Timing - duration: Weeks (1) Timing - details: Abrupt onset, Still present, Waxing and waning Pain level max: 10 Pain level now: 5 Quality: Sharp, Pain Location: RUQ Improved by: Laying still Worsened by: Position Associated symptoms: No: Fever, Nausea, Vomiting, Hematemesis, Diarrhea, Constipation Similar symptoms before: Diagnosis (kidney stone) Recently seen: Not recently seen - Additional information Additional information: 34-year-old female with a history of nephrolithiasis has now developed symptoms of right-sided flank pain that has been undulating sharp peaks at 10 in general background of 5. She has not had vomiting. Review of Systems Constitutional: denies: Fever, Chills, Myalgias Eyes: denies: Decreased vision Ears: denies: Ear pain Nose: denies: Rhinorrhea / runny nose, Congestion Throat: denies: Sore throat Cardiac: denies: Chest pain / pressure, Palpitations Respiratory: denies: Dyspnea, Cough GI: reports: Abdominal Pain. denies: Nausea, Vomiting, Constipation, Diarrhea : denies: Dysuria, Frequency, Hesitancy Skin: denies: Rash Musculoskeletal: reports: Back pain. 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 - Present Medications Home Medications: Ambulatory Orders Medication Instructions Recorded Confirmed Albuterol Sulf [Ventolin Hfa 1 - 2 puffs INH Q4HR PRN #1 inhaler 06/13/19 12/14/19 Inhaler] Ondansetron Odt [Zofran Odt] 4 mg PO Q8HR PRN 12/14/19 12/14/19 - Allergies Allergies/Adverse Reactions: Allergies Allergy/AdvReac Type Severity Reaction Status Date / Time No Known Drug Allergies Allergy Verified 12/14/19 19:09 - Social History Does the pt smoke?: No Smoking Status: Never smoker Does the pt drink ETOH?: Yes Does the pt have substance abuse?: Yes - Immunizations Immunizations are current?: No Immunizations: TDAP >10years/unknown - POLST Patient has POLST: No PD ED PE NORMAL - Vitals Vital signs reviewed: Yes (normal ) - General General: Alert and oriented X 3, No acute distress, Well developed/nourished - HEENT HEENT: Atraumatic, PERRL, EOMI - Neck Neck: Supple, no meningeal sign, No bony TTP - Cardiac Cardiac: RRR, No murmur - Respiratory Respiratory: No respiratory distress, Clear bilaterally - Abdomen Abdomen: Normal bowel sounds, Soft, Non tender, Non distended, No organomegaly - Back Back: No CVA TTP, No spinal TTP - Derm Derm: Normal color, Warm and dry, No rash - Extremities Extremities: No deformity, No edema, No calf tenderness / cord - Neuro Neuro: Alert and oriented X 3, web administrator 2-12 intact, No motor deficit, No sensory deficit, Normal speech Eye Opening: Spontaneous Motor: Obeys Commands Verbal: Oriented GCS Score: 15 - Psych Psych: Normal mood, Normal affect Results - Vitals Vitals: Vital Signs - 24 hr 01/30/20 01/30/20 07:42 10:33 Temperature 36.4 C L Heart Rate 67 70 Respiratory 16 16 Rate Blood Pressure 110/65 98/61 O2 Saturation 98 100 Oxygen O2 Source Room air - Labs Labs: Laboratory Tests 01/30/20 01/30/20 01/30/20 08:05 08:05 08:05 WBC 7.5 RBC 4.37 Hgb 12.9 Hct 38.8 MCV 88.8 MCH 29.5 MCHC 33.2 RDW 13.3 Plt Count 272 MPV 10.2 Neut # (Auto) 4.4 Lymph # (Auto) 2.1 [place] # (Auto) 0.7 Eos # (Auto) 0.2 Baso # (Auto) 0.1 Absolute Nucleated RBC 0.00 Nucleated RBC % 0.0 Sodium 136 Potassium 3.6 Chloride 103 Carbon Dioxide 25 Anion Gap 8.0 BUN 13 Creatinine 0.7 Estimated GFR (MDRD) 96 Glucose 100 Calcium 9.1 Total Bilirubin 0.8 AST 17 ALT 12 Alkaline Phosphatase 47 Total Protein 7.7 Albumin 4.1 Globulin 3.6 Albumin/Globulin Ratio 1.1 Lipase 28 Urine Color YELLOW Urine Clarity CLEAR Urine pH 6.0 Ur Specific [place] 1.015 Urine Protein NEGATIVE Urine Glucose (UA) NEGATIVE Urine Ketones NEGATIVE Urine Occult Blood NEGATIVE Urine Nitrite NEGATIVE Urine Bilirubin NEGATIVE Urine Urobilinogen 0.2 (NORMAL) Ur Leukocyte Esterase NEGATIVE Ur Microscopic Review NOT INDICATED Urine Culture Comments NOT INDICATED Urine HCG, Qual NEGATIVE - Rads (name of study) CT ab/pel w/o Radiology: Prelim report reviewed (1 1. Bilateral nonobstructing renal calculi, stable. No obstructing calculi. No hydronephrosis. No bladder calculi. 2 Normal appendix. No bowel obstruction. No right diverticulitis.), EMP read indepedently, See rad report Procedures - Bedside sono Bedside sono by EMP: With use of bedside ultrasound the right upper quadrant is imaged to the gallbladder is without obvious stone there is no gallbladder wall thickening or pericholecystic fluid there is is no obvious intrahepatic bile duct dilation and the gallbladder is not sonographically tender.Examination of the right flank shows a minimally tender right kidney on sonographic palpation. There is minimal hydronephrosis there is no perinephric's fluid for thickening. PD MEDICAL DECISION MAKING - ED course Complexity details: reviewed old records, reviewed results, re-evaluated patient, considered differential, d/w patient ED course: 34-year-old female with right upper quadrant abdominal pain and flank pain has a history of renal lithiasis without ureteral lithiasis and she is come back to the emergency department today with similar symptoms and similar findings. She still has a 4 mm stone at the inferior pole of the right kidney.She is diagnosed with flank pain of uncertain etiology. I suspect the patient's pain in her side is related to a musculoskeletal cause and I have asked her to follow-up with her primary. Departure - Departure Disposition: 01 Home, Self Care Clinical Impression: Flank pain Condition: Stable Instructions: ED Flank Pain Uncertain Cause Follow-Up: Karri Miramontes ARNP [Primary Care Provider] -
--- NOTE | 2020-01-30 10:19 | CT Report ---
Reason: R flank pain Procedure Date: 01/30/2020 Accession Number: [id number] / [id number] Procedure: CT - Abdomen/Pelvis WO CPT Code: Final Report FULL RESULT: EXAM: CT ABDOMEN AND PELVIS (CT KUB) EXAM DATE: 01/30/2020 09:44 AM. CLINICAL HISTORY: Right flank pain. COMPARISONS: ABDOMEN/PELVIS W/O 11/06/2019 11:38 AM. TECHNIQUE: Routine axial helical CT imaging was performed through the abdomen and pelvis without IV contrast. Reconstructions: Coronal and sagittal. In accordance with CT protocol optimization, one or more of the following dose reduction techniques were utilized for this exam: automated exposure control, adjustment of mA and/or KV based on patient size, or use of iterative reconstructive technique. FINDINGS: Lung Bases: Unremarkable. Right Kidney/Ureter: Nonobstructing lower pole right renal 5 mm calculus. No obstructing calculi. No hydronephrosis. Left Kidney/Ureter: Nonobstructing lower pole left renal calculi approximately two with the largest measuring 5 mm. No obstructing calculi. No hydronephrosis. Other Solid Organs: Noncontrast images of the solid organs are grossly unremarkable. Gallbladder/Bile Ducts: Unremarkable. Peritoneal Cavity: No bowel obstruction. No free air. No diverticulitis. Normal appendix. Pelvic Organs: No bladder calculi. No adnexal masses on these unenhanced images. Trace pelvic free fluid. Vasculature: Unremarkable. Other: No acute osseous abnormalities. IMPRESSION: 1. Bilateral nonobstructing renal calculi, stable. No obstructing calculi. No hydronephrosis. No bladder calculi. 2. Normal appendix. No bowel obstruction. No diverticulitis. RADIA
[2020-01-30 10:34] VITALS: BP 98/61
== END 2020-01-30 10:42 | disposition home or self-care (01) ==
LOC: ED 07:39
DX: R10.11 Right upper quadrant pain (principal)
CPT/HCPCS: 36415; 74176; 80053; 81001; 81003; 81025; 83690; 85025; 87086; 96361; 96374; 99284

== ENCOUNTER 2020-04-13 10:23 | Emergency (ER) | payer OTHER ==
--- NOTE | 2020-04-13 12:09 | ED Physician Documentation ---
History of Present Illness - Stated complaint Stated Complaint: BURNT LIP - Chief complaint Chief Complaint: Heent - History obtained from History obtained from: Patient - History of Present Illness Timing: How many weeks ago (2) Pain level max: 0 Pain level now: 0 - Additonal information Additional information: Patient states that she has had blistering to the left lower lip for the past several days. Thinks it may have been related to burning her lip with a vape pen, or smoking or sharing shot glasses with her friends. Nothing makes it better or worse. 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 - Present Medications Home Medications: Ambulatory Orders Medication Instructions Recorded Confirmed Albuterol Sulf [Ventolin Hfa 1 - 2 puffs INH Q4HR PRN #1 inhaler 06/13/19 12/14/19 Inhaler] Ondansetron Odt [Zofran Odt] 4 mg PO Q8HR PRN 12/14/19 12/14/19 Valacyclovir HCl [Valtrex] 1,000 mg PO BID #14 tablet 04/13/20 - Allergies Allergies/Adverse Reactions: Allergies Allergy/AdvReac Type Severity Reaction Status Date / Time No Known Drug Allergies Allergy Verified 12/14/19 19:09 - Social History Does the pt smoke?: No Smoking Status: Never smoker Does the pt drink ETOH?: Yes Does the pt have substance abuse?: Yes - Immunizations Immunizations are current?: No Immunizations: TDAP >10years/unknown - POLST Patient has POLST: No PD ED PE NORMAL - Vitals Vital signs reviewed: Yes - General General: Alert and oriented X 3, No acute distress - HEENT HEENT: Moist mucous membranes, Other (Small vesicles on her lower lip. No drainage. Otherwise normal intraoral exam.) - Neck Neck: Supple, no meningeal sign - Derm Derm: Warm and dry - Neuro Neuro: Alert and oriented X 3 - Psych Psych: Normal mood, Normal affect Results - Vitals Vitals: Vital Signs - 24 hr 04/13/20 04/13/20 10:38 12:20 Temperature 37.0 C 36.2 C L Heart Rate 80 Respiratory 20 18 Rate Blood Pressure 128/88 H 124/87 H O2 Saturation 99 Oxygen O2 Source Room air PD MEDICAL DECISION MAKING - ED course Complexity details: considered differential, d/w patient ED course: Patient with what appears to be herpes labialis. Will place on Valtrex. This is her first outbreak. Patient counseled regarding signs and symptoms for which I believe and urgent re-evaluation would be necessary. Patient with good understanding of and agreement to plan and is comfortable going home at this time This document was made in part using voice recognition software. While efforts are made to proofread this document, sound alike and grammatical errors may occur. Departure - Departure Disposition: 01 Home, Self Care Clinical Impression: Herpes simplex labialis Condition: Good Instructions: ED Herpes Simplex Virus Type 1 Follow-Up: Karri Miramontes ARNP [Primary Care Provider] - Within 1 week Prescriptions: Valacyclovir HCl [Valtrex] 1,000 mg PO BID #14 tablet Comments: Use the medications as prescribed. Return if you worsen. Follow-up with your doctor for further care. Discharge Date/Time: 04/13/20 12:24
[2020-04-13 12:21] VITALS: BP 124/87
== END 2020-04-13 12:24 | disposition home or self-care (01) ==
LOC: ED 10:23
DX: B00.1 Herpesviral vesicular dermatitis (principal)
CPT/HCPCS: 99282; 99284

== ENCOUNTER 2020-05-18 10:11 | Emergency (ER) | payer OTHER ==
[2020-05-18] MEDS ORDERED: FLUCONAZOLE 100 MG TABLET PO STA (11:12)
--- NOTE | 2020-05-18 11:16 | ED Physician Documentation ---
History of Present Illness - Stated complaint Stated Complaint: FEMAL - Chief complaint Chief Complaint: General - History obtained from History obtained from: Patient - Additonal information Additional information: Patient comes emergency department complaining of severe itching in her vagina for the last 3 days. She was recently treated for bacterial vaginosis with topical clindamycin cream, and stated that her symptoms of BV, which initially consisted of foul-smelling discharge and increased amount of discharge, had more or less resolved. Patient states that a couple of days after finishing the cream, she began to have severe itching in her vaginal area. She states this was not part of the initial symptoms. Patient denies fevers or chills. No abdominal pain. She states she started her menstruation the next day, and has been using tampons since. Patient states that she is still bleeding significantly and cannot tell if there is been any change in her discharge. Review of Systems Ten Systems: 10 systems reviewed and negative Constitutional: reports: Reviewed and negative Eyes: reports: Reviewed and negative Ears: reports: Reviewed and negative Nose: reports: Reviewed and negative Throat: reports: Reviewed and negative Cardiac: reports: Reviewed and negative Respiratory: reports: Reviewed and negative GI: reports: Reviewed and negative : reports: Other (Vaginal itching) Skin: reports: Reviewed and negative Musculoskeletal: reports: Reviewed and negative Neurologic: reports: Reviewed and negative Psychiatric: reports: Reviewed and negative Endocrine: reports: Reviewed and negative Immunocompromised: reports: Reviewed and negative PD PAST MEDICAL HISTORY - Past Medical History Cardiovascular: None Respiratory: None Neuro: None Endocrine/Autoimmune: None GI: GERD, Other MEDICAL EDITOR: None : Kidney stones HEENT: None Psych: None Musculoskeletal: None Derm: None - Past Surgical History 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, 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 - Present Medications Home Medications: Ambulatory Orders Medication Instructions Recorded Confirmed Albuterol Sulf [Ventolin Hfa 1 - 2 puffs INH Q4HR PRN #1 inhaler 06/13/19 12/14/19 Inhaler] Ondansetron Odt [Zofran Odt] 4 mg PO Q8HR PRN 12/14/19 12/14/19 Valacyclovir HCl [Valtrex] 1,000 mg PO BID #14 tablet 04/13/20 Fluconazole [Diflucan] 150 mg PO DAILY 1 Days #1 tablet 05/18/20 - Allergies Allergies/Adverse Reactions: Allergies Allergy/AdvReac Type Severity Reaction Status Date / Time No Known Drug Allergies Allergy Verified 12/14/19 19:09 - Social History Does the pt smoke?: No Smoking Status: Never smoker Does the pt drink ETOH?: Yes Does the pt have substance abuse?: No Substance Use and Type: Marijuana - Immunizations Immunizations are current?: Yes Immunizations: TDAP >10years/unknown - POLST Patient has POLST: No PD ED PE NORMAL - Vitals Vital signs reviewed: Yes - General General: Alert and oriented X 3, No acute distress, Well developed/nourished - HEENT HEENT: Atraumatic, PERRL, EOMI, Moist mucous membranes - Neck Neck: Supple, no meningeal sign - Respiratory Respiratory: No respiratory distress - Abdomen Abdomen: Soft, Non tender, Non distended - Female Female : Other (Normal female genitalia. No external lesions. No lesions within the vaginal canal. Moderate amount of dark red blood in vaginal canal without clots or tissue. Cervical office is closed. Cervical morphology normal. No cervical motion or adnexal tenderness. No mass.) - Derm Derm: Warm and dry - Extremities Extremities: No deformity - Neuro Neuro: Alert and oriented X 3 - Psych Psych: Normal mood, Normal affect Results - Vitals Vitals: Vital Signs - 24 hr 05/18/20 05/18/20 10:18 11:24 Temperature 36.8 C 36.8 C Heart Rate 78 80 Respiratory 14 18 Rate Blood Pressure 137/91 H 120/88 H O2 Saturation 99 100 Oxygen O2 Source Room air PD MEDICAL DECISION MAKING - ED course Complexity details: considered differential, d/w patient ED course: I discussed with the patient that actually, her symptoms sound most consistent with vaginal candidiasis, given the intense itching and the emergence of symptoms shortly after completion of a course of broad-spectrum antibiotics. I discussed with the patient that she is on her. We will not be able to do a wet mount exam because of the degree of blood in her vagina. I have discussed with the patient that I would advocate for treatment presumptively of a vaginal candidiasis. I have advised the patient to stop wearing tampons until her symptoms resolve. We discussed that her if her symptoms are not better after her period concludes, and then she should follow-up with her primary care physician to have further evaluation. Departure - Departure Disposition: 01 Home, Self Care Clinical Impression: Vaginal candidiasis Vaginitis Qualifiers: Chronicity: acute Qualified Code(s): N76.0 - Acute vaginitis Condition: Stable Instructions: ED Vaginal Infec Fungal Serina Prescriptions: Fluconazole [Diflucan] 150 mg PO DAILY 1 Days #1 tablet Comments: Unfortunately, as you are on your period now, we were not able to do the swab test that would test for bacterial vaginosis, yeast infection, and other certain other types of vaginal infections. However, your symptoms in the recent history of a broad-spectrum antibiotic applied to your vagina do indicate a high likelihood of a vaginal yeast infection. This is easily treatable, either with topical creams or suppositories that are inserted directly into the vagina, or with a short course of either single dose or 2 dose antifungal agent by mouth. Given that you are on your period, the oral treatment is better in your case. It is very important that you do not use tampons while your vagina is irritated. Also avoid using any sort of intravaginal wash or douche solution. If you finish your period and you are still having symptoms, you should be rechecked by your primary doctor. Your gonorrhea and chlamydia swab has been sent today and you will be notified if it is positive Discharge Date/Time: 05/18/20 11:34
[2020-05-18 11:24] VITALS: BP 120/88
[2020-05-18 22:49] LABS: TRICHOMONAS VAGINALIS DNA NEGATIVE (NEGATIVE)
== END 2020-05-18 11:34 | disposition home or self-care (01) ==
LOC: ED 10:11
DX: B37.3 Candidiasis of vulva and vagina (principal)
CPT/HCPCS: 87491; 87591; 87661; 99283; 99284; A9270

== ENCOUNTER 2020-06-05 08:22 | Emergency (ER) | payer OTHER ==
[2020-06-05 08:50] LABS: BASOPHILS # (AUTO) 0.1 10^3/uL (0.0-0.1); BASOPHILS % (AUTO) 0.8 %; EOSINOPHILS # (AUTO) 0.3 10^3/uL (0.0-0.7); EOSINOPHILS % (AUTO) 4.4 %; HGB - HEMOGLOBIN 13.3 g/dL (12.0-16.0); LYMPHOCYTES # (AUTO) 1.9 10^3/uL (1.5-3.5); LYMPHOCYTES % (AUTO) 28.9 %; MEAN CORPUSCULAR HEMOGLOBIN 29.8 pg (27.0-31.0); MEAN CORPUSCULAR HGB CONC 32.8 g/dL (32.0-36.0); MEAN PLATELET VOLUME 10.5 fL (7.9-10.8); MONOCYTES # (AUTO) 0.6 10^3/uL (0.0-1.0); MONOCYTES % (AUTO) 9.7 %; NEUTROPHILS # (AUTO) 3.7 10^3/uL (1.5-6.6); PLT - PLATELET COUNT 255 10^3/uL (130-450); RED BLOOD COUNT 4.46 10^6/uL (4.20-5.40); RED CELL DISTRIBUTION WIDTH 13.2 % (12.0-15.0); WHITE BLOOD COUNT 6.6 x10^3/uL (4.8-10.8)
--- NOTE | 2020-06-05 08:53 | ED Physician Documentation ---
PD HPI ABD PAIN - Stated complaint Stated Complaint: ABD PAIN - Chief complaint Chief Complaint: Abd Pain - History obtained from History obtained from: Patient, Family - History of Present Illness Timing - onset: How many weeks ago (1) Timing - duration: Weeks (1) Timing - details: Gradual onset, Still present, Waxing and waning Pain level max: 8 Pain level now: 2 Quality: Sharp, Pain Location: Epigastric Improved by: Meds Worsened by: Other (alcohol and spicy foods) Associated symptoms: Nausea, Vomiting. No: Fever, Hematemesis, Diarrhea, Constipation Similar symptoms before: Diagnosis (gastritis with H. Pylori) Recently seen: Not recently seen - Additional information Additional information: Previously well 34-year-old female with a history of anxiety and H. pylori gastritis has developed epigastric pain and nausea with one episode of vomiting over the past week. She states that her mother is here visiting and she has been drinking alcohol. The patient states that she feels off and lightheaded and dizzy. She is been drinking extra fluids. She denies any diarrhea. She is not on omeprazole states that when she finished her treatment for H. pylori she felt entirely well. She is discontinued all medications for her stomach. She has been taking some Tums periodically and when this pain came on she took 2 without relief. Review of Systems Constitutional: denies: Fever Eyes: denies: Decreased vision Ears: denies: Ear pain Nose: denies: Rhinorrhea / runny nose, Congestion Throat: denies: Sore throat Cardiac: denies: Chest pain / pressure, Palpitations Respiratory: denies: Dyspnea, Cough GI: reports: Abdominal Pain, Nausea, Vomiting. denies: Diarrhea : denies: Dysuria, Frequency Skin: denies: Rash Musculoskeletal: denies: Neck pain, Back pain, Extremity pain Neurologic: reports: Other (light headed and dizzy). denies: Generalized weakness, Focal weakness, Numbness, Difficulty speaking Psychiatric: denies: Depressed PD PAST MEDICAL HISTORY - Past Medical History Past Medical History: Yes Cardiovascular: None Respiratory: None Neuro: None Endocrine/Autoimmune: None GI: GERD, Other MANAGER COMMODITIES: None : Kidney stones HEENT: None Psych: None Musculoskeletal: None Derm: None - Past Surgical History Past Surgical History: Yes /MANAGER COMMODITIES: section, 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 - Present Medications Home Medications: Ambulatory Orders Medication Instructions Recorded Confirmed Albuterol Sulf [Ventolin Hfa 1 - 2 puffs INH Q4HR PRN #1 inhaler 06/13/19 12/14/19 Inhaler] Ondansetron Odt [Zofran Odt] 4 mg PO Q8HR PRN 12/14/19 12/14/19 Valacyclovir HCl [Valtrex] 1,000 mg PO BID #14 tablet 04/13/20 Fluconazole [Diflucan] 150 mg PO DAILY 1 Days #1 tablet 05/18/20 Omeprazole 20 mg PO DAILY #20 capsule. 06/05/20 - Allergies Allergies/Adverse Reactions: Allergies Allergy/AdvReac Type Severity Reaction Status Date / Time No Known Drug Allergies Allergy Verified 12/14/19 19:09 - Social History Does the pt smoke?: No Smoking Status: Never smoker Does the pt drink ETOH?: Yes Does the pt have substance abuse?: No - Immunizations Immunizations are current?: Yes Immunizations: TDAP >10years/unknown - POLST Patient has POLST: No PD ED PE NORMAL - Vitals Vital signs reviewed: Yes (hypertensive mild diastolic ) - General General: Alert and oriented X 3, No acute distress, Well developed/nourished - HEENT HEENT: Atraumatic, PERRL, EOMI - Neck Neck: Supple, no meningeal sign, No bony TTP - Cardiac Cardiac: RRR, No murmur - Respiratory Respiratory: No respiratory distress, Clear bilaterally - Abdomen Abdomen: Normal bowel sounds, Soft, Non tender, Non distended, No organomegaly - Back Back: No CVA TTP, No spinal TTP - Derm Derm: Normal color, Warm and dry, No rash - Extremities Extremities: No deformity, No edema - Neuro Neuro: Alert and oriented X 3, vascular ultrasound technician 2-12 intact, No motor deficit, No sensory deficit, Normal speech Eye Opening: Spontaneous Motor: Obeys Commands Verbal: Oriented GCS Score: 15 - Psych Psych: Normal mood, Normal affect Results - Vitals Vitals: Vital Signs - 24 hr 06/05/20 08:34 Temperature 36.5 C Heart Rate 78 Respiratory 16 Rate Blood Pressure 128/82 H O2 Saturation 100 Oxygen O2 Source Room air - Labs Labs: Laboratory Tests 06/05/20 06/05/20 06/05/20 08:37 08:37 08:37 WBC 6.6 RBC 4.46 Hgb 13.3 Hct 40.6 MCV 91.0 MCH 29.8 MCHC 32.8 RDW 13.2 Plt Count 255 MPV 10.5 Neut # (Auto) 3.7 Lymph # (Auto) 1.9 [place] # (Auto) 0.6 Eos # (Auto) 0.3 Baso # (Auto) 0.1 Absolute Nucleated RBC 0.00 Nucleated RBC % 0.0 Sodium 138 Potassium 3.8 Chloride 102 Carbon Dioxide 26 Anion Gap 10.0 BUN 14 Creatinine 0.7 Estimated GFR (MDRD) 96 Glucose 101 H Calcium 9.5 Total Bilirubin 0.6 AST 14 ALT 10 Alkaline Phosphatase 47 Total Protein 7.8 Albumin 4.1 Globulin 3.7 Albumin/Globulin Ratio 1.1 Lipase 27 Urine Color Urine Clarity Urine pH Ur Specific [place] Urine Protein Urine Glucose (UA) Urine Ketones Urine Occult Blood Urine Nitrite Urine Bilirubin Urine Urobilinogen Ur Leukocyte Esterase Ur Microscopic Review Urine Culture Comments Urine HCG, Qual Ethyl Alcohol < 5.0 06/05/20 09:06 WBC RBC Hgb Hct MCV MCH MCHC RDW Plt Count MPV Neut # (Auto) Lymph # (Auto) [place] # (Auto) Eos # (Auto) Baso # (Auto) Absolute Nucleated RBC Nucleated RBC % Sodium Potassium Chloride Carbon Dioxide Anion Gap BUN Creatinine Estimated GFR (MDRD) Glucose Calcium Total Bilirubin AST ALT Alkaline Phosphatase Total Protein Albumin Globulin Albumin/Globulin Ratio Lipase Urine Color YELLOW Urine Clarity CLEAR Urine pH 6.0 Ur Specific [place] 1.025 Urine Protein NEGATIVE Urine Glucose (UA) NEGATIVE Urine Ketones NEGATIVE Urine Occult Blood NEGATIVE Urine Nitrite NEGATIVE Urine Bilirubin NEGATIVE Urine Urobilinogen 0.2 (NORMAL) Ur Leukocyte Esterase NEGATIVE Ur Microscopic Review NOT INDICATED Urine Culture Comments NOT INDICATED Urine HCG, Qual NEGATIVE Ethyl Alcohol Procedures - IVC sono (time) 0850 Bedside IVC sono: IVC measures (cm) (1.96), IVC collapsed c insp (cm) (1.09), Euvolemia PD MEDICAL DECISION MAKING - ED course Complexity details: reviewed old records, reviewed results, re-evaluated patient, considered differential, d/w patient, d/w family ED course: 34 y/o female with epigastric pain and history of gastritis has been drinking alcohol and has symptoms. At the time of evaluation her pain is a 2/10 and her bigger concern is for feeling off. She is found to be adequately hydrated by interrogation of the IVC and her electrolytes and blood counts are measured. She is given IV protonix. All the patient's tests are normal. I suspect patient's feeling off has to do with her alcohol consumption which she is not used to. Th e mother states that she did bring some hard alcohol and there is a lot of stress for the patient herself. The patient's abdominal discomfort is minimal and she is not overly concerned with this. I have asked her to take omeprazole for the next week and to avoid alcohol. Departure - Departure Disposition: Home, Self Care Clinical Impression: Gastritis Qualifiers: Gastritis type: alcoholic Chronicity: acute Gastritis bleeding: without bleeding Qualified Code(s): K29.20 - Alcoholic gastritis without bleeding Condition: Stable Instructions: ED PUD Vs Gastritis Follow-Up: JOSE Hammer [Provider Group] Prescriptions: Omeprazole 20 mg PO DAILY #20 capsule. Comments: Today it appears your abdominal pain is likely related to your consumption of alcohol. The expectation is that if you avoid alcohol and take the omeprazole your symptoms should completely resolve within the next 3 days. I suspect the feeling of being in a fog is related to your alcohol consumption as well and this should resolve within 1 to 2 days of discontinuing the alcohol. Continue to hydrate.
[2020-06-05] MEDS ORDERED: PANTOPRAZOLE 40 MG VIAL IVP STA (08:56)
[2020-06-05 08:59] LABS: ALBUMIN 4.1 g/dL (3.2-5.5); ALBUMIN/GLOBULIN RATIO 1.1 (1.0-2.2); BILIRUBIN,TOTAL 0.6 mg/dL (0.2-1.0); CALCIUM 9.5 mg/dL (8.5-10.3); CREATININE 0.7 mg/dL (0.4-1.0); TOTAL PROTEIN 7.8 g/dL (6.7-8.2)
[2020-06-05 09:12] LABS: BILIRUBIN,URINE NEGATIVE (NEGATIVE); GLUCOSE, URINE (UA) NEGATIVE (NEGATIVE); KETONES,URINE (UA) NEGATIVE (NEGATIVE); LEUKOCYTE ESTERASE, URINE NEGATIVE (NEGATIVE); NITRITE,URINE NEGATIVE (NEGATIVE); OCCULT BLOOD,URINE NEGATIVE (NEGATIVE); PROTEIN,URINE NEGATIVE (NEGATIVE); UROBILINOGEN,URINE 0.2 (NORMAL) E.U./dL (NORMAL)
[2020-06-05 09:15] LABS: CLARITY,URINE CLEAR (CLEAR); HCG UR QUAL NEGATIVE
[2020-06-05 09:40] VITALS: BP 116/72
== END 2020-06-05 09:41 | disposition home or self-care (01) ==
LOC: ED 08:22
DX: K29.20 Alcoholic gastritis without bleeding (principal)
CPT/HCPCS: 36415; 80053; 80320; 81001; 81003; 81025; 83690; 85025; 87086; 96374; 99284

== ENCOUNTER 2020-08-22 12:22 | Emergency (ER) | payer OTHER ==
--- NOTE | 2020-08-22 13:01 | ED Physician Documentation ---
History of Present Illness - Stated complaint Stated Complaint: WEAK,SOA,CHEST PX,NAUSEA - History obtained from History obtained from: Patient - Additonal information Additional information: Otherwise healthy 34-year-old woman with history of tubal ligation was having congestion and a burnt smell to everything so 9 days ago got a coronavirus test and she found out 3 days ago that was positive. Over the last 2 days has developed difficulty taking a deep breath, malaise and fatigue and slight shortness of breath. Also a left eyebrow twitch. Review of Systems Constitutional: reports: Chills, Myalgias, Fatigue. 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 06/05/20 Nitrofurantoin Monohyd/M-Cryst 100 mg PO BID #10 capsule 08/22/20 [Macrobid 100 mg Capsule] - Allergies Allergies/Adverse Reactions: Allergies Allergy/AdvReac Type Severity Reaction Status Date / Time No Known Drug Allergies Allergy Verified 12/14/19 19:09 - Social History Does the pt smoke?: No Smoking Status: Never smoker Does the pt drink ETOH?: Yes Does the pt have substance abuse?: No - Immunizations Immunizations are current?: Yes Immunizations: TDAP >10years/unknown - POLST Patient has POLST: No PD ED PE NORMAL - Vitals Vital signs reviewed: Yes - General General: Alert and oriented X 3, No acute distress - HEENT HEENT: PERRL, EOMI, Ears normal, Pharynx benign - Neck Neck: Supple, no meningeal sign, No bony TTP - Cardiac Cardiac: RRR, No murmur - Respiratory Respiratory: No respiratory distress, Clear bilaterally - Abdomen Abdomen: Soft, Non tender - Back Back: No CVA TTP, No spinal TTP - Derm Derm: No rash - Neuro Neuro: Alert and oriented X 3, Normal speech Results - Vitals Vitals: Vital Signs - 24 hr 08/22/20 08/22/20 13:02 14:06 Temperature 36.6 C Heart Rate 66 75 Respiratory 18 18 Rate Blood Pressure 132/69 H 159/96 H O2 Saturation 99 99 Oxygen O2 Source Room air - Labs Labs: Laboratory Tests 08/22/20 08/22/20 08/22/20 13:22 13:22 13:50 WBC 7.1 RBC 4.69 Hgb 13.8 Hct 41.9 MCV 89.3 MCH 29.4 MCHC 32.9 RDW 12.2 Plt Count 270 MPV 10.4 Neut # (Auto) 4.3 Lymph # (Auto) 1.9 [facility] # (Auto) 0.7 Eos # (Auto) 0.1 Baso # (Auto) 0.0 Absolute Nucleated RBC 0.00 Nucleated RBC % 0.0 Sodium 139 Potassium 3.8 Chloride 100 L Carbon Dioxide 28 Anion Gap 11.0 BUN 16 Creatinine 0.7 Estimated GFR (MDRD) 96 Glucose 99 Calcium 9.6 Total Bilirubin 0.5 AST 15 ALT 10 Alkaline Phosphatase 46 Total Protein 7.8 Albumin 3.9 Globulin 3.9 Albumin/Globulin Ratio 1.0 Lipase 35 Urine Color YELLOW Urine Clarity SL. CLOUDY Urine pH 6.5 Ur Specific [place] 1.025 Urine Protein NEGATIVE Urine Glucose (UA) NEGATIVE Urine Ketones NEGATIVE Urine Occult Blood NEGATIVE Urine Nitrite POSITIVE H Urine Bilirubin NEGATIVE Urine Urobilinogen 0.2 (NORMAL) Ur Leukocyte Esterase NEGATIVE Urine RBC None Seen Urine WBC 0-3 Ur Squamous Epith Cells MOD Squamous H Urine Bacteria Moderate H Ur Microscopic Review INDICATED Urine Culture Comments NOT INDICATED Urine HCG, Qual NEGATIVE - Rads (name of study) 1v cxr Radiology: EMP read contemporaneously (nad) PD MEDICAL DECISION MAKING - ED course ED course: 34-year-old woman with recent coronavirus infection presents now feeling worse. Her examination, chest x-ray, and blood work are unremarkable. She does have evidence of UTI without evidence of pyelonephritis treated with Macrobid. Departure - Departure Disposition: 01 Home, Self Care Clinical Impression: Cystitis, COVID-19 Condition: Stable Record reviewed to determine appropriate education?: Yes Instructions: ED UTI Cystitis Female Prescriptions: Nitrofurantoin Monohyd/M-Cryst [Macrobid 100 mg Capsule] 100 mg PO BID #10 capsule Comments: From the standpoint of the coronavirus infection, looks like everything is getting better, you do have evidence of UTI which we are treating with nitrofurantoin. Return if worsening. Discharge Date/Time: 08/22/20 14:20
[2020-08-22 13:32] LABS: BASOPHILS % (AUTO) 0.6 %; EOSINOPHILS # (AUTO) 0.1 10^3/uL (0.0-0.7); HGB - HEMOGLOBIN 13.8 g/dL (12.0-16.0); LYMPHOCYTES # (AUTO) 1.9 10^3/uL (1.5-3.5); LYMPHOCYTES % (AUTO) 26.8 %; MEAN CORPUSCULAR HEMOGLOBIN 29.4 pg (27.0-31.0); MEAN CORPUSCULAR HGB CONC 32.9 g/dL (32.0-36.0); MEAN CORPUSCULAR VOLUME 89.3 fL (81.0-99.0); MEAN PLATELET VOLUME 10.4 fL (7.9-10.8); MONOCYTES # (AUTO) 0.7 10^3/uL (0.0-1.0); MONOCYTES % (AUTO) 9.2 %; NEUTROPHILS # (AUTO) 4.3 10^3/uL (1.5-6.6); NEUTROPHILS % (AUTO) 61.1 %; PLT - PLATELET COUNT 270 10^3/uL (130-450); RED BLOOD COUNT 4.69 10^6/uL (4.20-5.40); RED CELL DISTRIBUTION WIDTH 12.2 % (12.0-15.0); WHITE BLOOD COUNT 7.1 x10^3/uL (4.8-10.8)
[2020-08-22] MEDS ORDERED: ONDANSETRON ODT 4 MG TABLET TL STA (13:33)
[2020-08-22 13:48] LABS: ALBUMIN 3.9 g/dL (3.2-5.5); BILIRUBIN,TOTAL 0.5 mg/dL (0.2-1.0); CALCIUM 9.6 mg/dL (8.5-10.3); CREATININE 0.7 mg/dL (0.4-1.0); TOTAL PROTEIN 7.8 g/dL (6.7-8.2)
[2020-08-22 14:06] VITALS: BP 159/96
--- NOTE | 2020-08-22 14:07 | XRAY Report ---
PROCEDURE: Chest 1 View X-Ray INDICATIONS: dyspnea TECHNIQUE: One view of the chest was acquired. COMPARISON: 04/24/2020 FINDINGS: Surgical changes and devices: None. Lungs and pleura: No pleural effusions or pneumothorax. Lungs are clear. Mediastinum: Mediastinal contours appear normal. Heart size is normal. Bones and chest wall: No suspicious bony lesions. Bilateral nipple piercings. IMPRESSION: No evidence of an acute cardiopulmonary abnormality. Reviewed by: Lukas Young DO on 08/22/2020 1:05 PM [facility] Approved by: Lukas Young DO on 08/22/2020 1:05 PM [facility] Station ID: [id number]
[2020-08-22 14:11] LABS: BILIRUBIN,URINE NEGATIVE (NEGATIVE); GLUCOSE, URINE (UA) NEGATIVE (NEGATIVE); KETONES,URINE (UA) NEGATIVE (NEGATIVE); LEUKOCYTE ESTERASE, URINE NEGATIVE (NEGATIVE); NITRITE,URINE POSITIVE (NEGATIVE); OCCULT BLOOD,URINE NEGATIVE (NEGATIVE); PH,URINE 6.5 PH (5.0-7.5); PROTEIN,URINE NEGATIVE (NEGATIVE); UROBILINOGEN,URINE 0.2 (NORMAL) E.U./dL (NORMAL)
[2020-08-22 14:12] LABS: CLARITY,URINE SL. CLOUDY (CLEAR); HCG UR QUAL NEGATIVE
[2020-08-22] MEDS ORDERED: NITROFURANTOIN MACRO 100 MG CAPSULE PO STA (14:16)
[2020-08-22 14:19] LABS: BACTERIA,URINE Moderate /HPF (None Seen); RBC,URINE None Seen /HPF (0-5); SQUAMOUS EPITHELIAL CELL,UR MOD Squamous (<= Few)
== END 2020-08-22 14:20 | disposition home or self-care (01) ==
LOC: ED 12:22
DX: U07.1 COVID-19 (principal); N30.90 Cystitis, unspecified without hematuria
CPT/HCPCS: 36415; 71045; 80053; 81001; 81025; 83690; 85025; 99284; A9270; Q0162; 81003; 87086

== ENCOUNTER 2020-09-06 16:55 | Emergency (ER) | payer OTHER ==
[2020-09-06 17:05] VITALS: BP 126/76
--- NOTE | 2020-09-06 17:49 | XRAY Report ---
PROCEDURE: Ribs w/PA Chest RT INDICATIONS: trauma TECHNIQUE: 4 views of the right ribs were acquired, along with a single view chest. COMPARISON: CXR 08/22/2020. CT abdomen and pelvis 01/30/2020. FINDINGS: Surgical changes and devices: None. Bones and chest wall: No displaced right-sided rib fractures. No fractures or dislocations. No susp icious bony lesions. Overlying soft tissues appear unremarkable. Lungs and pleura: No pleural effusions or pneumothorax. Lungs appear clear. Mediastinum: Mediastinal contours appear normal. Heart size is normal. Small left kidney stones and possible right kidney stone are seen. IMPRESSION: No displaced right-sided rib fracture. Lungs are clear. Reviewed by: Brenton Amado MD on 09/06/2020 4:48 PM [facility] Approved by: Brenton Amado MD on 09/06/2020 4:48 PM [facility] Station ID: [id number]
[2020-09-06] MEDS ORDERED: LIDOCAINE PATCH 5% TOP STA (18:07)
[2020-09-06] MEDS ORDERED: IBUPROFEN 800 MG TABLET PO STA (18:07)
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
[2020-09-06] MEDS ORDERED: ONDANSETRON ODT 4 MG TABLET TL STA (18:34)
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
== END 2020-09-06 19:00 | disposition home or self-care (01) ==
LOC: ED 16:55
DX: S20.211A Contusion of right front wall of thorax, initial encounter (principal); S60.221A Contusion of right hand, initial encounter; Y04.0XXA Assault by unarmed brawl or fight, initial encounter; Y93.89 Activity, other specified
CPT/HCPCS: 71101; 73130; 99284; A9270; Q0162

== ENCOUNTER 2020-11-14 08:48 | Emergency (ER) | payer OTHER ==
[2020-11-14 09:00] VITALS: BP 128/72
[2020-11-14] MEDS ORDERED: CHERRY SYRUP 10 ML UDC PO ONE (09:29)
[2020-11-14] MEDS ORDERED: KETOROLAC 60 MG/2 ML VIAL IM STA (09:29)
--- NOTE | 2020-11-14 09:32 | ED Physician Documentation ---
PD HPI UPPER EXT INJURY - Stated complaint Stated Complaint: LT SHOULDER PX - Chief complaint Chief Complaint: Ext Problem - History obtained from History obtained from: Patient - History of Present Illness Location: Left, Shoulder Type of injury: Other (uses a "whip around" on the steering wheel of the car. Cannot think of specific incident or injury.) Where injury occurred: Home Timing - onset: Yesterday Timing - duration: Days (1) Timing - details: Gradual onset, Still present Improved by: Rest, Immobilization Worsened by: Moving, Palpating Associated symptoms: No: Weakness, Numbness, Tingling, Swelling Similar symptoms before: Has not had sx before Recently seen: Not recently seen - Additonal information Additional information: Previously well 34-year-old female began to have some pain in her left shoulder yesterday and this morning when she woke up she had severe pain in her shoulder any movement of her arm at all hurt and she comes into the emergency department now holding her left hand with the right hand up against her chest did not move her shoulder. She tried to use a patch to the shoulder and she is placed it over the posterior lateral aspect of the shoulder this is not helped with her pain. She is not able to move her shoulder and range of motion without severe pain. She is uncertain of a specific injury to the arm she states that she is right-handed and she does not use her left hand for much of anything except for driving and she does use a whip around on her steering wheel. 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 : Kidney stones HEENT: None Psych: None Musculoskeletal: None Derm: None - Past Surgical History Past Surgical History: Yes /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: section, 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 - Present Medications Home Medications: Ambulatory Orders Medication Instructions Recorded Confirmed traMADol [Ultram] 50 - 100 mg PO Q6H PRN #20 tab 11/14/20 - Allergies Allergies/Adverse Reactions: Allergies Allergy/AdvReac Type Severity Reaction Status Date / Time No Known Drug Allergies Allergy Verified 11/14/20 08:59 - Social History Does the pt smoke?: No Smoking Status: Never smoker Does the pt drink ETOH?: Yes Does the pt have substance abuse?: Yes Substance Use and Type: Marijuana - Immunizations Immunizations are current?: Yes Immunizations: TDAP >10years/unknown - POLST Patient has POLST: No PD ED PE NORMAL - Vitals Vital signs reviewed: Yes (normal ) - General General: Alert and oriented X 3, No acute distress, Well developed/nourished - HEENT HEENT: Atraumatic, PERRL, EOMI - Neck Neck: Supple, no meningeal sign, No bony TTP - Respiratory Respiratory: No respiratory distress - Derm Derm: Normal color, Warm and dry, No rash - Extremities Extremities: No deformity, No edema, Other (There is a lidocaine patch over the left shoulder anterior posterior laterally and the patient is holding her arm in a flexed position up against her chest. There is reduced range of motion secondary to pain the patient is guarding and will not allow me to move the arm through range of motion. 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, No motor deficit, No sensory deficit, Normal speech Eye Opening: Spontaneous Motor: Obeys Commands Verbal: Oriented GCS Score: 15 - Psych Psych: Normal mood, Normal affect Results - Vitals Vitals: Vital Signs - 24 hr 11/14/20 08:57 Temperature 36.3 C L Heart Rate 73 Respiratory 18 Rate Blood Pressure 128/72 O2 Saturation 99 Oxygen O2 Source Room air - Rads (name of study) shoulder Radiology: Prelim report reviewed (Impression: Relatively prominent calcific tendinopathy can be seen.), EMP read indepedently, See rad report PD MEDICAL DECISION MAKING - ED course Complexity details: considered differential, d/w patient ED course: 34-year-old female with some restriction to movement and a lot of pain in her left shoulder with movement has the appearance of calcific tendinitis on her plain film she is administered some dexamethasone and Toradol here in the emergency department we will place her into a sling and have her follow-up with orthopedics. Departure - Departure Disposition: 01 Home, Self Care Clinical Impression: Calcific tendinitis Condition: Stable Instructions: ED Tendinitis Calcific Follow-Up: [facility] [Provider Group] Prescriptions: traMADol [Ultram] 50 - 100 mg PO Q6H PRN #20 tab PRN Reason: Pain
[2020-11-14] MEDS: DEXAMETHASONE 10 MG/ML VIAL PO STA (09:39)
--- NOTE | 2020-11-14 10:27 | XRAY Report ---
PROCEDURE: Shoulder 3 View LT INDICATIONS: joint reduction in ROM TECHNIQUE: 3 views of the shoulder were acquired. COMPARISON: Chest radiograph 09/06/2020 FINDINGS: Bones: No fractures or dislocations. No suspicious bony lesions. Visualized ribs appear intact. Soft tissues: There is relatively prominent calcific tendinopathy seen. The visualized lung demonstra joe a normal appearance. IMPRESSION: Relatively prominent calcific tendinopathy can be seen. If it would be helpful for clinical management decision making, please consider a dedicated, schedule d shoulder MRI for further evaluation. Reviewed by: Koko Truong MD on 11/14/2020 9:26 AM [facility] Approved by: Koko Truong MD on 11/14/2020 9:26 AM [facility] Station ID: [id number]
== END 2020-11-14 11:20 | disposition home or self-care (01) ==
LOC: ED 08:48
DX: M75.32 Calcific tendinitis of left shoulder (principal)
CPT/HCPCS: 73030; 96372; 99283; 99284; A9270

== ENCOUNTER 2020-11-29 17:11 | Emergency (ER) | payer OTHER ==
[2020-11-29] MEDS ORDERED: ACETAMINOPHEN 325 MG TABLET PO STA (17:34)
--- NOTE | 2020-11-29 17:35 | ED Physician Documentation ---
PD HPI ABD PAIN - Stated complaint Stated Complaint: ABD PX - Chief complaint Chief Complaint: Abd Pain - History obtained from History obtained from: Patient - Additional information Additional information: 34-year-old woman with history of anxiety, bilateral nephroliths and remote C- section presents with right flank pain starting today but also stabbing pains in the epigastrium, left upper quadrant, and far left side. She denies nausea with it. No fevers. No urinary complaints or hematuria. She has chronic diarrhea which is unchanged. The pain was not present yesterday. It is sharp and s tabbing and seems to move around a lot. Review of Systems Constitutional: denies: Fever, Chills Cardiac: denies: Chest pain / pressure, Palpitations Respiratory: denies: Dyspnea, Cough GI: reports: Abdominal Pain. 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 - Present Medications Home Medications: Ambulatory Orders Medication Instructions Recorded Confirmed Acetaminophen [Tylenol] 500 mg PO PRN PRN 11/29/20 11/29/20 - Allergies Allergies/Adverse Reactions: Allergies Allergy/AdvReac Type Severity Reaction Status Date / Time No Known Drug Allergies Allergy Verified 11/29/20 17:24 - Social History Does the pt smoke?: No Smoking Status: Never smoker Does the pt drink ETOH?: Yes Does the pt have substance abuse?: Yes - Immunizations Immunizations are current?: Yes Immunizations: TDAP >10years/unknown - POLST Patient has POLST: No PD ED PE NORMAL - Vitals Vital signs reviewed: Yes - General General: Alert and oriented X 3, No acute distress - Respiratory Respiratory: No respiratory distress, Clear bilaterally - Abdomen Abdomen: Normal bowel sounds, Soft, Non tender - Back Back: No CVA TTP, No spinal TTP - Derm Derm: Normal color, Warm and dry - Extremities Extremities: No edema, No calf tenderness / cord - Neuro Neuro: Alert and oriented X 3, Normal speech Results - Vitals Vitals: Vital Signs - 24 hr 11/29/20 11/29/20 11/29/20 17:20 19:23 20:02 Temperature 36.3 C L 36.6 C 36.9 C Heart Rate 71 65 63 Respiratory 15 18 16 Rate Blood Pressure 132/74 H 106/84 H 139/84 H O2 Saturation 98 99 96 Oxygen O2 Source Room air - Labs Labs: Laboratory Tests 11/29/20 11/29/20 11/29/20 17:45 17:45 18:00 WBC 8.2 RBC 4.33 Hgb 12.8 Hct 39.3 MCV 90.8 MCH 29.6 MCHC 32.6 RDW 12.6 Plt Count 287 MPV 9.5 Neut # (Auto) 4.7 Lymph # (Auto) 2.7 Loup # (Auto) 0.6 Eos # (Auto) 0.1 Baso # (Auto) 0.0 Absolute Nucleated RBC 0.00 Nucleated RBC % 0.0 Sodium 140 Potassium 3.5 Chloride 102 Carbon Dioxide 28 Anion Gap 10.0 BUN 14 Creatinine 1.0 Estimated GFR (MDRD) 63 L Glucose 89 Calcium 9.5 Total Bilirubin 0.4 AST 15 ALT 11 Alkaline Phosphatase 49 Total Protein 7.8 Albumin 3.9 Globulin 3.9 Albumin/Globulin Ratio 1.0 Lipase 28 Urine Color YELLOW Urine Clarity CLEAR Urine pH 6.5 Ur Specific Sieper 1.015 Urine Protein NEGATIVE Urine Glucose (UA) NEGATIVE Urine Ketones NEGATIVE Urine Occult Blood NEGATIVE Urine Nitrite NEGATIVE Urine Bilirubin NEGATIVE Urine Urobilinogen 0.2 (NORMAL) Ur Leukocyte Esterase NEGATIVE Ur Microscopic Review NOT INDICATED Urine Culture Comments NOT INDICATED Urine HCG, Qual 11/29/20 18:00 WBC RBC Hgb Hct MCV MCH MCHC RDW Plt Count MPV Neut # (Auto) Lymph # (Auto) Loup # (Auto) Eos # (Auto) Baso # (Auto) Absolute Nucleated RBC Nucleated RBC % Sodium Potassium Chloride Carbon Dioxide Anion Gap BUN Creatinine Estimated GFR (MDRD) Glucose Calcium Total Bilirubin AST ALT Alkaline Phosphatase Total Protein Albumin Globulin Albumin/Globulin Ratio Lipase Urine Color Urine Clarity Urine pH Ur Specific Sieper Urine Protein Urine Glucose (UA) Urine Ketones Urine Occult Blood Urine Nitrite Urine Bilirubin Urine Urobilinogen Ur Leukocyte Esterase Ur Microscopic Review Urine Culture Comments Urine HCG, Qual NEGATIVE - Rads (name of study) Retroperitoneal sono Radiology: EMP read contemporaneously (Poss 6mm R nephrolith.) PD MEDICAL DECISION MAKING - ED course ED course: She has a history of kidney stones but it sounds like actually these were incidentally found nephroliths on CT. She had multiple CTs in the past. Will obtain retroperitoneal ultrasonography and labs and urinalysis today. The exam is very benign. She remained nontender on reevaluation. Her work-up here was negative for acute findings of concern. The cause of her abdominal pain is not known but does not seem to be an emergency or urgently dangerous. Advised follow-up with her primary care physician and consideration of EGD. Departure - Departure Disposition: 01 Home, Self Care Condition: Good Record reviewed to determine appropriate education?: Yes Instructions: Abdominal Pain Comments: As discussed, the cause of your abdominal pain is not clear. Does not seem to be anything serious. You do have kidney stones, but they do not seem to be in a position that would be painful. Since it has been a few years since her last upper endoscopy, [place] to a GI physician or surgeon capable of performing that procedure for discussion. Return for new or worsening symptoms. Discharge Date/Time: 11/29/20 20:04
[2020-11-29 17:50] LABS: BASOPHILS % (AUTO) 0.5 %; EOSINOPHILS # (AUTO) 0.1 10^3/uL (0.0-0.7); EOSINOPHILS % (AUTO) 1.3 %; HCT - HEMATOCRIT 39.3 % (37.0-47.0); HGB - HEMOGLOBIN 12.8 g/dL (12.0-16.0); LYMPHOCYTES # (AUTO) 2.7 10^3/uL (1.5-3.5); LYMPHOCYTES % (AUTO) 33.1 %; MEAN CORPUSCULAR HEMOGLOBIN 29.6 pg (27.0-31.0); MEAN CORPUSCULAR HGB CONC 32.6 g/dL (32.0-36.0); MEAN CORPUSCULAR VOLUME 90.8 fL (81.0-99.0); MEAN PLATELET VOLUME 9.5 fL (7.9-10.8); MONOCYTES # (AUTO) 0.6 10^3/uL (0.0-1.0); MONOCYTES % (AUTO) 7.4 %; NEUTROPHILS # (AUTO) 4.7 10^3/uL (1.5-6.6); NEUTROPHILS % (AUTO) 57.5 %; PLT - PLATELET COUNT 287 10^3/uL (130-450); RED BLOOD COUNT 4.33 10^6/uL (4.20-5.40); RED CELL DISTRIBUTION WIDTH 12.6 % (12.0-15.0); WHITE BLOOD COUNT 8.2 x10^3/uL (4.8-10.8)
[2020-11-29 18:02] LABS: ALBUMIN 3.9 g/dL (3.2-5.5); BILIRUBIN,TOTAL 0.4 mg/dL (0.2-1.0); CALCIUM 9.5 mg/dL (8.5-10.3); POTASSIUM 3.5 mmol/L (3.5-5.0); TOTAL PROTEIN 7.8 g/dL (6.7-8.2)
[2020-11-29 18:08] LABS: BILIRUBIN,URINE NEGATIVE (NEGATIVE); GLUCOSE, URINE (UA) NEGATIVE (NEGATIVE); KETONES,URINE (UA) NEGATIVE (NEGATIVE); LEUKOCYTE ESTERASE, URINE NEGATIVE (NEGATIVE); NITRITE,URINE NEGATIVE (NEGATIVE); OCCULT BLOOD,URINE NEGATIVE (NEGATIVE); PH,URINE 6.5 PH (5.0-7.5); PROTEIN,URINE NEGATIVE (NEGATIVE); UROBILINOGEN,URINE 0.2 (NORMAL) E.U./dL (NORMAL)
[2020-11-29 18:14] LABS: CLARITY,URINE CLEAR (CLEAR)
[2020-11-29 18:57] LABS: HCG UR QUAL NEGATIVE
[2020-11-29] MEDS ORDERED: HYDROcod/ACETAM 5/325 MG TABLET PO STA (19:20)
[2020-11-29] MEDS ORDERED: HYDROcod/ACET 5/325 Prepack 4 PO STA (19:55)
[2020-11-29 20:03] VITALS: BP 139/84
--- NOTE | 2020-11-29 20:41 | Ultrasound Report ---
PROCEDURE: Retroperitoneal INDICATIONS: flank pain TECHNIQUE: Real-time scanning was performed of the retroperitoneal organs, with image documentation. COMPARISON: None. FINDINGS: Kidneys: Kidneys are normal in size. Right kidney measures 11.1 cm long; left kidney measures 10.4 cm long. Right renal cortical thickness is 1.7 cm; left renal cortical thickness is 1.5 cm. No jolene d masses, hydronephrosis. Questionable 6 mm nonobstructing intrarenal calcification in the lower pole of the right kidney. Bladder: Prevoid urinary bladder has a volume of 249 cc. Bilateral ureteral jets are visible. No blad arya mass or debris. The post void residual is 18 cc. IMPRESSION: 1. Possible nonobstructing 6 mm lower pole right renal stone. This is unlikely to cause flank pain. 2. No hydronephrosis. 3. Small postvoid residual in the urinary bladder. Reviewed by: Essie Veliz MD on 11/29/2020 8:39 PM PST Approved by: Essie Veliz MD on 11/29/2020 8:39 PM PST Station ID: [id number]
== END 2020-11-29 20:04 | disposition home or self-care (01) ==
LOC: ED 17:11
DX: N20.0 Calculus of kidney (principal)
CPT/HCPCS: 36415; 76770; 80053; 81003; 81025; 83690; 85025; 99284; A9270; 81001; 87086